=== PATIENT | female | born 1955 | race Caucasian/White ===

== ENCOUNTER → 2020-07-03 10:02 | Outpatient (BNVA) | payer MEDICARE, MEDICAID, SELFPAY | PROVIDERS: PCP Internal Medicine; Visit Provider Hospitalist | DX: J45.909 Unspecified asthma, uncomplicated (principal); Z79.899 Other long term (current) drug therapy; Z23 Encounter for immunization | CPT/HCPCS: 90471; 90732; 99213 ==

== ENCOUNTER → 2020-08-19 09:54 | Outpatient (BNVA) | payer MEDICARE, MEDICAID, SELFPAY | PROVIDERS: PCP Internal Medicine; Referring Provider Internal Medicine; Visit Provider Physician Assistant | DX: D64.9 Anemia, unspecified (principal); Z95.1 Presence of aortocoronary bypass graft | CPT/HCPCS: Q3014 ==

== ENCOUNTER 2020-10-16 08:30 | Outpatient (REF) | payer MEDICARE, MEDICAID, SELFPAY ==
--- NOTE | 2020-10-16 09:15 | EMG_ITS ---
Left median and ulnar motor and sensory studies were performed. Left radial sensory study was performed and paraspinal muscles were tested. IMPRESSION: 1. Mild left median neuropathy across carpal tunnel. 2. Left radial sensory neuropathy. 3. Mild left William Krysta anastomosis. MD MENDEZ Charles/GUNNER / [id number]
== END 2020-10-16 08:31 | disposition home or self-care (01) ==
LOC: HO.NEURO 08:30
PROVIDERS: PCP Internal Medicine; Visit Provider Internal Medicine
DX: R20.0 Anesthesia of skin (principal)
CPT/HCPCS: 95886; 95909

== ENCOUNTER → 2020-10-21 10:53 | Outpatient (BNVA) | payer MEDICARE, MEDICAID, SELFPAY | PROVIDERS: PCP Internal Medicine; Visit Provider Physician Assistant | DX: D64.9 Anemia, unspecified (principal) | CPT/HCPCS: Q3014 ==

== ENCOUNTER → 2021-03-30 10:17 | Outpatient (BNVA) | payer MEDICARE, MEDICAID, SELFPAY | PROVIDERS: PCP Internal Medicine; Visit Provider Hospitalist | DX: G47.33 Obstructive sleep apnea (adult) (pediatric) (principal); J45.40 Moderate persistent asthma, uncomplicated | CPT/HCPCS: 99212 ==

== ENCOUNTER 2021-05-18 12:18 | Outpatient (REF) | payer MEDICARE, MEDICAID, SELFPAY ==
--- NOTE | ~2021-05-18 | MM_ITS ---
EXAMINATION: MM SCREENING DIGITAL BREAST TOMOSYNTHESIS, BILATERAL CLINICAL INFORMATION: Screening. Asymptomatic. Prior [id number] mammography currently unavailable. Age 66. Family history breast cancer, paternal aunt. The lifetime risk of breast cancer based on the Tyrer-Cuzick Model is 6%. COMPARISON: None. TECHNIQUE: Digital breast tomosynthesis is performed in both the craniocaudal and mediolateral oblique views along with computer-aided detection (CAD). Synthesized 2D images are generated from the tomosynthesis. FINDINGS: The breasts are heterogeneously dense, which may obscure small masses (ACR BI-RADS breast composition Category c). Breast tissue composition borders on average fibroglandular. There is no significant mass or architectural abnormality. There are bilateral coarse vascular calcifications. Other bilateral fine calcifications appear early vascular on tomography. There are no suspicious calcifications. The axilla and skin contours are unremarkable. MM/MM tomosynthesis screening BI IMPRESSION: No mammographic evidence of malignancy. ASSESSMENT: BI-RADS 2: Benign RECOMMENDATION: Routine annual mammography screening. This patient's information was entered into a reminder system with a target due date for their next mammogram.
== END 2021-05-18 12:19 | disposition home or self-care (01) ==
LOC: HO.MAMMO 12:18
PROVIDERS: Visit Provider Internal Medicine
DX: Z12.31 Encounter for screening mammogram for malignant neoplasm of breast (principal); G47.33 Obstructive sleep apnea (adult) (pediatric)
CPT/HCPCS: 77063; 77067

== ENCOUNTER → 2021-05-18 13:10 | Outpatient (REF) | payer MEDICARE, MEDICAID, SELFPAY | LOC: HO.SL 13:10 | PROVIDERS: PCP Internal Medicine; Visit Provider Hospitalist | DX: Z13.89 Encounter for screening for other disorder (principal) ==

== ENCOUNTER → 2022-10-20 12:05 | Outpatient (BNVA) | payer MEDICARE, SELFPAY | PROVIDERS: PCP Internal Medicine; Referring Provider Internal Medicine; Visit Provider Internal Medicine | DX: I25.10 Atherosclerotic heart disease of native coronary artery without angina pectoris (principal); I10 Essential (primary) hypertension; E11.9 Type 2 diabetes mellitus without complications; Z95.1 Presence of aortocoronary bypass graft; Z79.4 Long term (current) use of insulin; Z79.899 Other long term (current) drug therapy | CPT/HCPCS: 93005; 99202 ==

== ENCOUNTER → 2022-11-17 11:10 | Outpatient (REF) | payer OTHER, SELFPAY ==
--- NOTE | 2022-11-17 11:12 | CA_ITS ---
Transthoracic Echocardiogram Patient (Last, First, Middle): Monica Read, Gender: Female Date of : 1955 Age: 67 Procedure Date: 11/17/2022 Procedure Type: Transthoracic Echocardiogram Location: OP Height: 157.48 cm Weight: 63.96 kg BSA: 1.65 m2 Heart Rate: bpm BP: 138 / 65 mmHg Information Systems Security Specialist: TO Referring MD: Bethel Marvin MD Skid Machine Operator: Esteban Hermosillo MD Symptoms: I25.10 - Atherosclerotic heart disease of [place] coronary artery without... Study Quality: Fair/Contrast ECG Rhythm: Sinus Conclusions: - 1, Normal LV systolic function with grade I diastolic function. 2. Normal cardiac valvular Doppler 3. Normal RVSP 4. No gross pericardial effusion. Findings Procedure Information Contrast agent, definity, is being given per protocol without apparent complications. Left Ventricle Normal left ventricular size, thickness, and systolic function. The visually estimated ejection fraction is between 55-60%. Spectral Doppler is indicative of an impaired relaxation filling pattern. E/E prime ratio is <8, consistent with normal filling pressures. Evidence suggests grade I (mild) diastolic dysfunction. Right Ventricle Normal right ventricular cavity size and systolic function. Atria Both atria are normal in size. There is no evidence of interatrial shunt. Aortic Valve Normal aortic valve structure and function. There is no aortic valve stenosis. There is no aortic valve regurgitation. Mitral Valve There is mild anterior and posterior mitral leaflet thickening. There is mild mitral annular calcification. There is trace mitral valve regurgitation. There is no mitral valve stenosis. Pulmonic Valve The pulmonic valve was not well visualized. Tricuspid Valve Normal tricuspid valve structure. There is mild tricuspid valve regurgitation. The right ventricular systolic pressure is normal. The right ventricular systolic pressure is 25 mmHg. Normal right atrial pressure. There is no evidence of pulmonary hypertension. Great Vessels All visible segments of the aorta are normal in size. The pulmonary artery was not well visualized. Venous The inferior vena cava is normal in size and collapses greater than 50% with inspiration. Pericardium/Pleural There is no evidence of pericardial effusion. Prior Study Comparison No prior study available for comparison. Measurements 2D Linear Measurements IVSd: 0.99 0.6-0.9/0.6-1.0 cm LVIDd: 3.76 3.9-5.3/4.2-5.9 cm LVIDd Index: 2.28 2.4-3.2/2.2-3.1 cm/m2 LVIDs: 2.48 2.0-3.6 cm LVPWd: 0.76 0.7-1.1 cm LA Diam: 3.30 2.7-3.8/3.0-4.0 cm LAIDs Index: 2.00 1.5-2.3 cm/m2 LV Mass: 118.69 67-162/88-224 g LV Mass Index: 71.93 43-95/49-115 g/m2 LVOT Diam: 1.90 3.0+(-)1.3 cm 2D Systolic Function EF 4C: 51.20 >55% EF 2C: 60.40 >55% EF BiP: 55.60 >55% Mitral Valve E'Lateral: 9.03 E'Medial: 5.00 Aortic Valve AoV Pk Nba: 1.28 AoV Mn Nba: 0.90 AoV VTI: 0.26 AoV Pk Grad: 7.00 Aov Mn Grad: 4.00 ERICK Cont.VTI: 2.25 LVOT LVOT Pk Nba: 0.92 LVOT Mn Nba: 0.63 LVOT VTI: 0.20 LVOT Pk Grad: 3.00 LVOT Mn Grad: 2.00 LVOT Diam: 1.90 LVOT Area: 2.84 Diastolic Function E'Medial: 5.00 E' Laterial: 9.03 Right Ventricle TAPSE (mm): 14.60 TVS' Nba: 7.07 Tricuspid Valve TR Pk Nba: 2.33 TR Pk Grad: 22.00 RA Press: 3.00 RVSP: 25.00 Great Vessels Aorta Sinus of Valsalva: 2.94 2.0-3.5 cm Ao Asc: 2.90 2.1-3.4 cm Updated in Other Vendor System with Status of Final Esteban Hermosillo MD electronically signed on 11/17/2022 3:03:54 PM with status of Final
== END ==
LOC: HO.CARD 11:10
PROVIDERS: Visit Provider Internal Medicine
DX: I25.10 Atherosclerotic heart disease of native coronary artery without angina pectoris (principal); Z95.1 Presence of aortocoronary bypass graft
CPT/HCPCS: 93306; Q9957

== ENCOUNTER 2022-12-24 10:43 | Outpatient (REF) | payer OTHER, SELFPAY ==
--- NOTE | ~2022-12-24 | MM_ITS ---
EXAMINATION: MM SCREENING DIGITAL BREAST TOMOSYNTHESIS, BILATERAL CLINICAL INFORMATION: Screening. Asymptomatic. The lifetime risk of breast cancer based on the Tyrer-Cuzick Model is 4%. COMPARISON: Mammography: 05/18/2021 (new baseline) TECHNIQUE: Digital breast tomosynthesis is performed in both the craniocaudal and mediolateral oblique views along with computer-aided detection (CAD). Synthesized 2D images are generated from the tomosynthesis. Additional exaggerated right CC view is provided. FINDINGS: The breasts are heterogeneously dense, which may obscure small masses (ACR BI-RADS breast composition Category c). There are no significant masses, abnormal calcifications, or other abnormalities. Parenchymal pattern is similar to prior studies. There is no developing density or architectural abnormality. The axilla and skin contours are unremarkable. No significant changes. MM/MM tomosynthesis screening BI IMPRESSION: No mammographic evidence of malignancy. ASSESSMENT: BI-RADS 1: Negative RECOMMENDATION: Routine annual mammography screening. This patient's information was entered into a reminder system with a target due date for their next mammogram.
== END 2022-12-24 10:44 | disposition home or self-care (01) ==
LOC: HO.MAMMO 10:43
PROVIDERS: PCP Internal Medicine; Visit Provider Internal Medicine
DX: Z12.31 Encounter for screening mammogram for malignant neoplasm of breast (principal)
CPT/HCPCS: 77063; 77067

== ENCOUNTER → 2022-12-31 10:51 | Outpatient (BNVA) | payer OTHER, SELFPAY | PROVIDERS: PCP Internal Medicine; Visit Provider Hospitalist | DX: G47.33 Obstructive sleep apnea (adult) (pediatric) (principal); J45.40 Moderate persistent asthma, uncomplicated | CPT/HCPCS: 99212 ==

== ENCOUNTER 2024-01-06 11:35 | Outpatient (REF) | payer OTHER, SELFPAY ==
--- NOTE | ~2024-01-06 | MM_ITS ---
EXAMINATION: MM SCREENING DIGITAL BREAST TOMOSYNTHESIS, BILATERAL CLINICAL INFORMATION: Screening. Asymptomatic. COMPARISON: Mammography: This study is compared with prior exams dating back to 2020. TECHNIQUE: Digital breast tomosynthesis is performed in both the craniocaudal and mediolateral oblique views along with computer-aided detection (CAD). Synthesized 2D images are generated from the tomosynthesis. FINDINGS: The breasts are heterogeneously dense, which may obscure small masses (ACR BI-RADS breast composition Category c). There are no significant masses, abnormal calcifications, or other abnormalities. MM/MM tomosynthesis screening BI IMPRESSION: No mammographic evidence of malignancy. ASSESSMENT: BI-RADS BI-RADS 1 - Negative RECOMMENDATION: Routine annual mammography screening. 1 year F/U This examination should not preclude the clinical evaluation of a suspicious palpable abnormality. This patient's information was entered into a reminder system with a target due date for their next mammogram.
== END 2024-01-06 11:36 | disposition home or self-care (01) ==
LOC: HO.MAMMO 11:35
PROVIDERS: PCP Internal Medicine; Visit Provider Internal Medicine
DX: Z12.31 Encounter for screening mammogram for malignant neoplasm of breast (principal)
CPT/HCPCS: 77063; 77067

== ENCOUNTER → 2024-01-06 12:00 | Outpatient (BNV) | payer OTHER, SELFPAY | PROVIDERS: PCP Internal Medicine; Visit Provider Radiology Diagnostic Radiology | DX: Z12.31 Encounter for screening mammogram for malignant neoplasm of breast (principal) | CPT/HCPCS: 77063; 77067 ==

== ENCOUNTER 2024-01-24 10:10 | Outpatient (REF) | payer OTHER, SELFPAY ==
[2024-01-24 14:24] LABS: MANUAL DIFF FLAG NO
[2024-01-24 14:40] LABS: Basophils Absolute Auto 0.1 X10*3/uL (0.0-0.2); Basophils Percent Auto 0.8 % (0-2); Eosinophils Absolute Auto 0.3 X10*3/uL (0.0-0.4); Hematocrit 42.6 % (37.0-47.0); Hemoglobin 13.5 g/dl (12.0-16.0); Imm Gran Abs Auto 0.06 X10*3/uL (0.00-0.03); Imm Gran Pct Auto 0.8 % (0.0-0.4); Lymphocytes Absolute Auto 1.4 X10*3/uL (1.2-4.9); Lymphocytes Percent Auto 17.3 % (20-40); Mean Corpuscular HGB Conc 31.7 g/dl (31.0-35.0); Mean Corpuscular Hemoglobin 29.7 pg (27.0-33.0); Mean Corpuscular Volume 93.8 fL (80.0-98.0); Mean Platelet Volume 10.6 fL (9.4-12.3); Monocytes Absolute Auto 0.4 X10*3/uL (0.1-1.2); Monocytes Percent Auto 4.9 % (2-11); Neutrophils Absolute Auto 5.8 x10*3/uL (2.0-8.3); Neutrophils Percent Auto 72.2 % (45-73); Platelet Count 297 X10*3/uL (160-400); Red Blood Count 4.54 X10*6/uL (4.20-5.50); Red Cell Distribution Width 12.9 % (11.0-16.0)
[2024-01-24 14:47] LABS: Estimated Average Glucose 197 mg/dL; Hemoglobin A1c % 8.5 % (<6.0)
[2024-01-24 14:54] LABS: Alanine Aminotransferase 42 U/L (0-31); Alkaline Phosphatase 107 U/L (39-117); Anion Gap 14 (12-20); Aspartate Amino Transferase 42 U/L (5-31); Bilirubin Total 0.5 mg/dL (0.0-1.0); Blood Urea Nitrogen 14 mg/dL (9-16); Calcium 9.7 mg/dL (8.4-10.2); Carbon Dioxide 27 mmol/L (22-29); Chloride 107 mmol/L (96-108); Cholesterol 269 mg/dL (<200); Estimated Glomerular Filt Rate > 60; Glucose Random 92 mg/dL (60-115); HDL Cholesterol 49 mg/dL (>40); Iron 91 mcg/dL (30-160); LDL Cholesterol Calculated 194 mg/dL (<100); Percent Iron Saturation 31 % (15-50); Potassium 3.5 mmol/L (3.3-5.1); Sodium 144 mmol/L (135-145); Total Iron Binding Capacity 291 mcg/dL (228-428); Triglycerides 132 mg/dL (<150); Unsaturated Iron Binding 200 ug/dL
[2024-01-24 15:08] LABS: TSH reflex Free T4 1.83 uIU/mL (0.32-4.0)
[2024-01-24 15:17] LABS: Folate 11.3 ng/mL (> or = 4.0); Vitamin B12 198 pg/mL (200-900)
== END 2024-01-24 10:11 | disposition home or self-care (01) ==
LOC: HO.CHCLDS 10:10
PROVIDERS: Visit Provider Internal Medicine
DX: I25.10 Atherosclerotic heart disease of native coronary artery without angina pectoris (principal); E11.9 Type 2 diabetes mellitus without complications
CPT/HCPCS: 36415; 80053; 80061; 82607; 82746; 83036; 83540; 84443; 85025

== ENCOUNTER 2024-08-03 13:13 | Outpatient (REF) | payer OTHER, SELFPAY ==
[2024-08-03 14:35] LABS: Estimated Average Glucose 249 mg/dL; Hemoglobin A1C 326.7142 umol/L; Hemoglobin A1c % 10.3 % (<6.0); Total Hemoglobin (HGBA1C) 3668.3933 umol/L
[2024-08-03 14:43] LABS: Alanine Aminotransferase 38 U/L (0-31); Albumin Level 3.8 g/dL (3.5-5.0); Alkaline Phosphatase 111 U/L (39-117); Anion Gap 15 (12-20); Aspartate Amino Transferase 45 U/L (5-31); Bilirubin Total 0.5 mg/dL (0.0-1.0); Blood Urea Nitrogen 13 mg/dL (9-16); Calcium 9.3 mg/dL (8.4-10.2); Carbon Dioxide 25 mmol/L (22-29); Chloride 108 mmol/L (96-108); Cholesterol 243 mg/dL (<200); Estimated Glomerular Filt Rate > 60; Glucose Random 81 mg/dL (60-115); HDL Cholesterol 45 mg/dL (>40); LDL Cholesterol Calculated 167 mg/dL (<100); Potassium 3.6 mmol/L (3.3-5.1); Sodium 144 mmol/L (135-145); Total Protein 7.5 g/dL (6.5-8.0); Triglycerides 159 mg/dL (<150)
[2024-08-03 15:18] LABS: Vitamin B12 185 pg/mL (200-900)
== END 2024-08-03 13:14 | disposition home or self-care (01) ==
LOC: HO.CHCLDS 13:13
PROVIDERS: Visit Provider Internal Medicine
DX: E11.51 Type 2 diabetes mellitus with diabetic peripheral angiopathy without gangrene (principal); Z79.4 Long term (current) use of insulin
CPT/HCPCS: 36415; 80053; 80061; 82607; 82746; 83036

== ENCOUNTER 2024-08-06 11:47 | Outpatient (REF) | payer OTHER, SELFPAY ==
[2024-08-06 15:44] LABS: Creatinine Urine 81.49 mg/dL
== END 2024-08-06 11:48 | disposition home or self-care (01) ==
LOC: HO.CHCLNP 11:47
PROVIDERS: Visit Provider Internal Medicine
DX: E11.51 Type 2 diabetes mellitus with diabetic peripheral angiopathy without gangrene (principal); Z79.4 Long term (current) use of insulin
CPT/HCPCS: 82043; 82570

== ENCOUNTER 2024-08-29 11:08 | Outpatient (AMB) | payer OTHER, SELFPAY ==
[2024-08-29 11:13] VITALS: BP 140/68; PULSE 89; O2SAT 97; BMI 27.2
--- NOTE | 2024-08-29 11:13 | MHC.OFFVIS ---
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 Overall she has been doing well on the current respiratory regimen. She continues the Breo in the incruise daily. She has not had any exacerbations or need for prednisone. She did try to undergo pulmonary function studies but she did have a difficult time period therefore I find that the results are suboptimal and not consistent with her respiratory status. She also had a chest x-ray from [facility] that was without any acute disease. Recently she did get the flu shot. Will provide her with the pneumococcal 23 and hopefully she can get the Prevnar 13 next year. 03/30/2021 the patient is here for a pulmonary follow-up visit. Patient has been responding well to the current respiratory regimen. She does use the Breo daily. She does have a Xopenex HFA available as needed. She has had to use it more than twice a week specially when it is hot and humid. The patient major issue is her sleep. She has significant daytime drowsiness. Her [place] score is elevated 24. She states that she has discomfort of her shoulders and she usually is a side sleeper. However with the shoulder discomfort she has been having to sleep on her back. She has been having more snoring that she has been told about. Her sleep stents to be fragmented. The patient has significant cardiovascular risk factors. Recently she did develop chest discomfort and she was seen at the [facility] ER because she that was cardiac. her workup was reassuring. She was able to go home and she has not had any more chest discomfort. Based on his significant cardiovascular risk factors the patient needs to undergo a sleep study at this time. 12/31/2022 the patient is here for a pulmonary follow-up visit. Overall the patient has been doing well. She does use the Breo daily and also the Incruse daily. She has a rescue inhaler, Xopenex but she does not required it often. Typically less than twice a week. She continues to have daytime drowsiness. She did have a home sleep study more than a year ago at home. Although unfortunately it was not adequate and she had repeated. However she was never called. She continues to have some daytime drowsiness with an elevated [place] score of 10/24. Therefore with her underlying cardiovascular history will be important to repeat the study. Will have her undergo a repeat home sleep study this time. Otherwise patient is without any other complaints will follow-up in 3 months if her sleep study is abnormal although frost 1 year. 08/29/2024 the patient is here for a pulmonary follow-up visit. Overall she is doing very well on the Breo and the Incruse inhalers. The been affecting beneficial. She has not had to use her rescue inhaler often. Denies any recent sickness. She needs to get her flu vaccine. She got up the pharmacy and also get the RSV. No recent imaging to review. She continues to have daytime drowsiness. Her [place] score is elevated 10/24. She is still trying to arrange her home sleep study. When she has a done she can always call so we can review the results. Otherwise will follow-up in 6-8 months. She has issues with elevations in her blood sugars. Her hemoglobin A1c is significantly elevated. The patient has been struggling with this. She would benefit from an Endocrinology evaluation. Will facilitate this process at this time. [facility] Medical History (System 11/10/23 @ 08:42 by Savi Wu) CRISTINA (obstructive sleep apnea) Diabetes HTN (hypertension) CAD (coronary artery disease) Asthma Surgical History (System 11/10/23 @ 08:42 by Savi Wu) Hx of CABG Hx of heart surgery Hx of endoscopy History of colonoscopy Family History (System 11/10/23 @ 08:42 by Savi Wu) Father Hx of diabetes insipidus Mother No problems noted. Other Asthma Social History Household Members: None Household Members Other:: alone Alcohol intake: never Patient Tobacco Use Status: Never used Tobacco Review of Systems Const Reports daytime sleepiness, Reports difficulty sleeping and Denies night sweats ENT Denies change in voice, Denies lip swelling, Denies mouth pain, Reports nasal congestion, Reports nasal discharge and Denies tongue swelling Card Denies chest pain Resp Reports cough GI Denies abdominal pain Musc Denies no additional complaints Neuro Denies Neuro-related abnormal movements Psych Denies no additional complaints Mitchell/Lymph Denies easy bleeding and Denies lymphadenopathy Aller/Immun Denies lip swelling and Denies tongue swelling Physical Exam Vital Signs: Last Vital Signs Pulse 89 08/29/24 11:13 BP 140/68 H 08/29/24 11:13 Pulse Ox 97 08/29/24 11:13 Oxygen Delivery Method Room Air 08/29/24 11:13 BMI result Body Mass Index 27.2 Const General: alert Neck Neck: Yes normal visual inspection, Yes full ROM and Yes no lymphadenopathy Chest Chest palpation & inspection: normal inspection of the chest Resp Auscultation: diminished lung sounds Cardio Rate: regular rate Rhythm: regular rhythm Heart sounds: S1 normal heart sound present and S2 normal heart sound present GI Palpation (GI): Soft to palpation and nontender Auscultation: normal bowel sounds Skin General skin exam: rashes and/or lesions noted Assessment & Plan Assessment & Plan (1) CRISTINA (obstructive sleep apnea): Code(s): G47.33 - Obstructive sleep apnea (adult) (pediatric) Category: Medical (2) Asthma: Code(s): J45.909 - Unspecified asthma, uncomplicated Category: Medical Qualifiers: Asthma complication type: uncomplicated Asthma persistence: persistent Asthma severity: moderate Qualified Code(s): J45.40 - Moderate persistent asthma, uncomplicated (3) Diabetes: Code(s): E11.9 - Type 2 diabetes mellitus without complications Category: Medical Plan positional sleep therapy continue Breo continue Incruse short-acting beta agonist as needed referral to DM sustainability consultant follow-up in 6-8 months Orders: Referrals Endocrinology Referral E11.9 - Type 2 diabetes mellitus without complications Coding Level of Care Code Est Pt Level 4 (34285) Diagnoses CRISTINA (obstructive sleep apnea) G47.33 Moderate persistent asthma without complication J45.40 Asthma complication type: uncomplicated Asthma persistence: persistent Asthma severity: moderate Diabetes E11.9 Time Spent (min) 16
== END 2024-08-29 11:28 | disposition home or self-care (01) ==
PROVIDERS: PCP Internal Medicine; Visit Provider Hospitalist
DX: G47.33 Obstructive sleep apnea (adult) (pediatric) (principal); J45.40 Moderate persistent asthma, uncomplicated; E11.9 Type 2 diabetes mellitus without complications
CPT/HCPCS: 99214

== ENCOUNTER → 2024-08-29 11:08 | Outpatient (BNVA) | payer OTHER, SELFPAY | PROVIDERS: PCP Internal Medicine; Visit Provider Hospitalist | DX: G47.33 Obstructive sleep apnea (adult) (pediatric) (principal); J45.40 Moderate persistent asthma, uncomplicated; E11.9 Type 2 diabetes mellitus without complications | CPT/HCPCS: 99212 ==

== ENCOUNTER 2024-09-05 10:08 | Outpatient (AMB) | payer OTHER, SELFPAY ==
--- NOTE | 2024-09-05 10:09 | A.OFFVIS_ITS ---
Vital Signs 09/05/24 10:10 Height 5 ft 2 in Weight 143 lb 11.862 oz BMI 26.3 BP 140/72 H Blood Pressure Location Lt brachial Position Sitting Pulse 96 Pulse Source Monitor Intake Visit Reasons: Over due 1 year follow up Application Lead Required: Yes Application Lead Language: Film Vault Supervisor Name: Chad [id number] Accompanied by: Self / Same As Patient Allergies No Known Allergies Allergy (Verified 08/29/24 11:16) Medication List - Last Reconciled 09/05/24 by Bethel Marvin MD alcohol swabs pad topical TID alirocumab (Praluent Pen) 75 mg subcut Q2W aspirin 81 mg PO DAILY atorvastatin 80 mg PO BEDTIME dulaglutide 0.75 mg subcut QWEEK empagliflozin 25 mg PO DAILY ferrous sulfate 325 mg PO DAILY fluticasone furoate-vilanterol 200-25 mcg/dose (Breo Ellipta) 1 inh inhalation DAILY 30 days insulin aspart U-100 units subcut insulin glargine units subcut lancets As directed levalbuterol tartrate 45 mcg/actuation 2 puffs PO Q6H PRN 30 days lisinopril 40 mg PO DAILY multivitamin 1 tab PO DAILY pen needle, diabetic As directed umeclidinium 62.5 mcg/actuation 1 inh PO DAILY 30 days HPI Comments Details: Monica returns for follow-up regarding coronary artery disease. In 2019, she underwent coronary artery bypass surgery. It seems that she might have seen [facility] after that, but not recently. Multiple cardiovascular risk factors including diabetes, hypertension, dyslipidemia. Overall, not well controlled. Some sternal pain which could be related to sternotomy and long standing. [facility] Medical History CRISTINA (obstructive sleep apnea) Diabetes HTN (hypertension) CAD (coronary artery disease) Asthma Surgical History Hx of CABG Hx of heart surgery Hx of endoscopy History of colonoscopy Family History Father Hx of diabetes insipidus Mother No problems noted. Other Asthma Social History Household Members: None Household Members Other:: alone Alcohol intake: never Patient Tobacco Use Status: Never used Tobacco Review of Systems Const Denies chills, Denies fatigue, Denies fever(s), Denies frequent falls, Denies weakness, Denies weight gain and Denies weight loss ENT Denies dizziness Card Denies chest pain, Denies leg edema, Denies lightheadedness, Denies palpitations, Denies dyspnea and Denies dyspnea on exertion Resp Denies cough, Denies dyspnea and Denies dyspnea on exertion GI Denies hematochezia Musc Denies abnormal gait, Denies muscle weakness, Denies numbness, Denies radiating pain into limb and Denies tingling Neuro Denies abnormal gait, Denies dizziness, Denies frequent falls, Denies numbness, Denies tingling and Denies weakness Endo Denies fatigue and Denies palpitations Physical Exam Vital Signs: Last Vital Signs Pulse 96 09/05/24 10:10 BP 140/72 H 09/05/24 10:10 BMI result Body Mass Index 26.3 Const General: comfortable and no acute distress Orientation/consciousness: patient oriented x3 HEENT Other: Unremarkable Head: Yes normal to inspection Neck Neck: Yes normal visual inspection Chest Chest palpation & inspection: normal inspection of the chest Resp Auscultation: clear to auscultation bilaterally Cardio Palpation: normal PMI Heart sounds: S1 normal heart sound present, S2 normal heart sound present, no gallops, no murmurs and no rubs GI Palpation (GI): Soft to palpation Back/Spine/Pelvis Other: unremarkable Skin General skin exam: no rashes or lesions noted Neuro General: patient oriented x3 Extrem General: Yes normal to inspection Psych Mental Status: mental status grossly normal Office Procedures EKG Details: EKG with underlying sinus rhythm at 96/Min; nonspecific ST-T changes; [place] [id number], Complete Assessment & Plan Assessment & Plan (1) CAD (coronary artery disease): Code(s): I25.10 - Atherosclerotic heart disease of [place] coronary artery without angina pectoris Category: Medical Qualifiers: Coronary Disease-Associated Artery/Lesion type: [place] artery [place] vs. transplanted heart: [place] heart Associated angina: without angina Qualified Code(s): I25.10 - Atherosclerotic heart disease of [place] coronary artery without angina pectoris Plan: Clinically, no angina. Remain on long-term aspirin. She is on statins and verified that with pharmacy. However, lipids are poorly controlled and LDL is 167 mg/dL. Start Praluent. Recheck lipids in 3 months. (2) Hx of CABG: Code(s): Z95.1 - Presence of aortocoronary bypass graft Category: Surgical Plan: CABG 2019. OLMOS to LAD; SVG to OM 2; radial artery to OM 1. Recovered completely. (3) HTN (hypertension): Code(s): I10 - Essential (primary) hypertension Category: Medical Qualifiers: Hypertension type: primary hypertension Qualified Code(s): I10 - Essential (primary) hypertension Plan: Borderline blood pressure. (4) Diabetes: Code(s): E11.9 - Type 2 diabetes mellitus without complications Category: Medical Qualifiers: Diabetes mellitus type: type 2 Diabetes mellitus jail insulin use: with jail use Diabetes mellitus complication status: with hyperglycemia Qualified Code(s): E11.65 - Type 2 diabetes mellitus with hyperglycemia; Z79.4 - assisted (current) use of insulin Plan: Poorly controlled. Hb A1c >10%. On multiple meds including Trulicity, Jardiance, insulin. Will need further changes through her own PCP. Orders: Orders Lipid Panel 3 Months I25.10 - Atherosclerotic heart disease of [place] coronary artery without angina pectoris Medications: New lisinopril 40 mg PO DAILY 90 tabs 2RF alirocumab (Praluent Pen) 75 mg subcut Q2W 2 mL 3RF Coding Level of Care Code Est Pt Level 4 (69574) Diagnoses Coronary artery disease involving [place] coronary artery of [place] heart without angina pectoris I25.10 Coronary Disease-Associated Artery/Lesion type: [place] artery [place] vs. transplanted heart: [place] heart Associated angina: without angina Hx of CABG Z95.1 Primary hypertension I10 Hypertension type: primary hypertension Type 2 diabetes mellitus with hyperglycemia, with long-term current use of insulin E11.65; Z79.4 Diabetes mellitus type: type 2 Diabetes mellitus jail insulin use: with jail use Diabetes mellitus complication status: with hyperglycemia CPT Codes EKG - CPT: [id number], Complete ([id number])
[2024-09-05 10:10] VITALS: BP 140/72; PULSE 96; BMI 26.3
== END 2024-09-05 10:37 | disposition home or self-care (01) ==
PROVIDERS: PCP Internal Medicine; Visit Provider Internal Medicine
DX: I25.10 Atherosclerotic heart disease of native coronary artery without angina pectoris (principal); Z95.1 Presence of aortocoronary bypass graft; I10 Essential (primary) hypertension; E11.65 Type 2 diabetes mellitus with hyperglycemia; Z79.4 Long term (current) use of insulin
CPT/HCPCS: 93010; 99214

== ENCOUNTER → 2024-09-05 10:08 | Outpatient (BNVA) | payer OTHER, SELFPAY | PROVIDERS: PCP Internal Medicine; Visit Provider Internal Medicine | DX: I25.10 Atherosclerotic heart disease of native coronary artery without angina pectoris (principal); I10 Essential (primary) hypertension; E11.65 Type 2 diabetes mellitus with hyperglycemia; Z95.1 Presence of aortocoronary bypass graft; Z79.4 Long term (current) use of insulin | CPT/HCPCS: 93005; 99212 ==

== ENCOUNTER → 2024-10-26 11:45 | Outpatient (BNVA) | payer OTHER, SELFPAY | PROVIDERS: PCP Internal Medicine; Visit Provider Physician Assistant | DX: E11.65 Type 2 diabetes mellitus with hyperglycemia (principal); G47.33 Obstructive sleep apnea (adult) (pediatric); I10 Essential (primary) hypertension; E78.5 Hyperlipidemia, unspecified; Z79.4 Long term (current) use of insulin; Z95.1 Presence of aortocoronary bypass graft | CPT/HCPCS: 82947; 99202 ==

== ENCOUNTER 2024-12-07 11:45 | Outpatient (AMB) | payer OTHER, SELFPAY ==
--- NOTE | 2024-12-07 11:45 | MHC.OFFVIS ---
Vital Signs 12/07/24 11:49 Height 5 ft 2 in Weight 149 lb 7.574 oz BMI 27.3 BP 130/58 L Blood Pressure Location Rt brachial Position Sitting Pulse 97 Pulse Source Pulse Oximeter Pulse Oximetry (%) 97 Oxygen Delivery Method Room Air Intake Visit Reasons: Type 2 diabetes mellitus with hyperglycemia Intake Note: Patient present today for Type 2 Diabetes Mellitus Last Diabetic eye exam: 05/2024 Last Podiatry Visit: Does not see Wound Treatment Rn Random Glucose: 213 mg/dl HgA1C: 8.6% 12/07/2024 Refrigerating Technician Required: Yes Refrigerating Technician Language: Construction Manager Services: Refrigerating Technician Offered & Declined Information Interpreted: non-clinical & clinical Accompanied by: ELECTRONIC COILS SUPERVISOR- Kerline Allergies No Known Allergies Allergy (Verified 12/07/24 11:51) Medication List - Last Reconciled 12/07/24 by Zita Barger PA-C alcohol swabs pad topical TID alirocumab (Praluent Pen) 75 mg subcut Q2W aspirin 81 mg PO DAILY atorvastatin 80 mg PO BEDTIME blood-glucose sensor (Dexcom G7 Sensor device) Use daily As directed to monitor glucose. change q 10 days ferrous sulfate 325 mg PO DAILY fluticasone furoate-vilanterol 200-25 mcg/dose (Breo Ellipta) 1 inh inhalation DAILY 30 days glipizide ER 5 mg PO DAILY glucose (Dex4 Glucose) 16 grams (4 x 4 gram) PO Q15M PRN insulin aspart U-100 (Novolog FlexPen U-100 Insulin aspart) 12 units subcut TID insulin glargine U-300 conc (Toujeo Max U-300 SoloStar) 50 units (0.1667 mL) subcut DAILY lancets As directed levalbuterol tartrate 45 mcg/actuation 2 puffs PO Q6H PRN 30 days lisinopril 40 mg PO DAILY multivitamin 1 tab PO DAILY pen needle, diabetic As directed semaglutide (Ozempic) 0.25 mg (0.368 mL) subcut QWEEK umeclidinium 62.5 mcg/actuation 1 inh PO DAILY 30 days HPI HPI Type 2 diabetes mellitus with hyperglycemia: Details: Patient is a 69-year-old female with a significant past medical history of coronary artery disease, s/p CABG, CRISTINA, diabetes, hypertension, hyperlipidemia, anemia and asthma presenting today for a diabetic f/u. ELECTRONIC COILS SUPERVISOR is here to interpret although patient does understand and speaks Bruneian. Endo: She was diagnosed with diabetes around the age 50. Her last A1c was 10.3 and today is 8.6. She is currently on Ozempic 0.25 mg weekly, novolog 12 units t.i.d., Toujeo 50 units at night and glipizide 5 mg daily. -at times it was uncomfortable injecting 50 units of the Lantus, jardiance causes upset stomach, She tried metformin n/v/d. Trulicity causes n/v. CGM- She has used a sensor in the past and at our last visit I provided this for her. She says that it fell off and she does not know how to apply it. I did this again today in the office for her. She does have microalbuminuria and known CAD Diabetic Education- states she never had this and would like to and would like to see a enterprise resource planning consultant States she has a strong fam hx of t2dm and when she was diagnosed she was confirmed by pcp t2dm. CV: Blood pressure today in the office is 130/58. She is currently on lisinopril 40 mg. Her cholesterol is not at goal. Her LDL should be less than 70 in her last lipid panel did show an LDL of 167. She states she just restarted the atorvastatin 80 mg. . [facility] Medical History (Updated 10/26/24 @ 12:07 by Zita Barger PA-C) CRISTINA (obstructive sleep apnea) Diabetes HTN (hypertension) CAD (coronary artery disease) Asthma Surgical History Hx of CABG Hx of heart surgery Hx of endoscopy History of colonoscopy Family History Father Hx of diabetes insipidus Mother No problems noted. Other Asthma Social History Household Members: None Household Members Other:: alone Alcohol intake: never Patient Tobacco Use Status: Never used Tobacco Physical Exam Vital Signs: Last Vital Signs Pulse 97 12/07/24 11:49 BP 130/58 L 12/07/24 11:49 Pulse Ox 97 12/07/24 11:49 Oxygen Delivery Method Room Air 12/07/24 11:49 BMI result Body Mass Index 27.3 Const Orientation/consciousness: patient oriented x3 HEENT Ears: hearing grossly normal bilaterally Neck Thyroid: Thyroid normal Lymphatic: no lymphadenopathy noted Resp Auscultation: clear to auscultation bilaterally Cardio Rate: regular rate Rhythm: regular rhythm Heart sounds: S1 normal heart sound present and S2 normal heart sound present Skin General skin exam: no rashes or lesions noted Neuro General: patient oriented x3, gait normal and no focal motor deficits Results AMB Hemoglobin A1c AMB Hemoglobin A1c 8.6 % Last Edit by NITA Kelley on 12/07/24 12:13 Results Reviewed Results Reviewed: Laboratory Last Values Glucose (Clinic) 213 mg/dL (60-115) H 12/07/24 12:04 Assessment & Plan Assessment & Plan (1) Uncontrolled type 2 diabetes mellitus with hyperglycemia, with long-term current use of insulin: Code(s): E11.65 - Type 2 diabetes mellitus with hyperglycemia; Z79.4 - USP (current) use of insulin Category: Medical Plan: Increase Ozempic. Continue with current regimen otherwise. Dexcom provided today in the office and applied for her. (2) HTN (hypertension): Code(s): I10 - Essential (primary) hypertension Category: Medical Qualifiers: Hypertension type: primary hypertension Qualified Code(s): I10 - Essential (primary) hypertension Plan: WNL. Continue current regimen (3) Hyperlipidemia: Code(s): E78.5 - Hyperlipidemia, unspecified Category: Medical Plan: Discussed importance of compliance with statin. Orders: Orders AMB Hemoglobin A1c Today E11.65 - Type 2 diabetes mellitus with hyperglycemia, Z79.4 - exterminator (current) use of insulin Medications: New semaglutide (Ozempic) 0.5 mg (0.736 mL) subcut QWEEK 3 mL 4RF Changed From insulin aspart U-100 (Novolog FlexPen U-100 Insulin aspart) with breakfast, lunch and supper 12 units subcut TID To insulin aspart U-100 (Novolog FlexPen U-100 Insulin aspart) with breakfast, lunch and supper 12 units (0.12 mL) subcut TID 15 mL 0RF Discontinued semaglutide (Ozempic) Discontinued Reason: Doctor's Order 0.25 mg (0.368 mL) subcut QWEEK 3 mL 2RF Patient Instructions: continue insulins increase ozempic to 0.5 mg continue glipizide Coding Level of Care Code Est Pt Level 4 (85279) Complex EM visit Add On G2211 Diagnoses Uncontrolled type 2 diabetes mellitus with hyperglycemia, with long-term current use of insulin E11.65; Z79.4 Primary hypertension I10 Hypertension type: primary hypertension Hyperlipidemia E78.5
[2024-12-07 11:49] VITALS: BP 130/58; PULSE 97; O2SAT 97; BMI 27.3
[2024-12-07 12:08] LABS: Glucose, Whole Blood 213 mg/dL (60-115)
--- OUTSIDE RECORDS SUMMARY | 2024-12-07 13:39 | XMS_ITS | Clinical Summary ---
Author Organization [facility] ity Address [address] [place] [address] Care Team Providers Care Seismograph Computer Name Role Phone Unavailable Primary Care Provider Unavailabl e Social History Tobacco Use Types Packs/Day Years Used Date Smoking Tobacco: Never Assessed Comments Unknown Sex and Gender Information Value Date Recorded Sex Assigned at Not on file Legal Sex Female 2:09 PM EST Gender Identity Not on file Sexual Orientation Not on file Plan of Treatment Health Maintenance Due Date Last Done Comments Breast Cancer Screening 1955 DTaP,Tdap,and Td Vaccines (1 - Tdap) 1974 Pneumococcal Vaccine: 50+ Ye ars (1 of 1 - PCV) 2005 Zoster Vaccines (1 of 2) 2005 COVID-19 Vaccine ( - 2023-2 5 season) 2024 Influenza Vaccine (#1) 2024 RSV Immunization Patients 60 + Years Old (1 - 1-dose 75+ series) 2030 HIB Vaccines Aged Out No longer eligi ble based on patient's age to complete this topic HPV Vaccines Aged Out No longer eligi ble based on patient's age to complete this topic Hepatitis A Vaccines Aged Out No long er eligible based on patient's age to complete this topic Hepatitis B Vaccines Aged Out No long er eligible based on patient's age to complete this topic IPV Vaccines Aged Out No longer eligi ble based on patient's age to complete this topic MMR Vaccines Aged Out No longer eligi ble based on patient's age to complete this topic Meningococcal ACWY Vaccine Aged Out N o longer eligible based on patient's age to complete this topic Meningococcal B Vacine Aged Out No lo nger eligible based on patient's age to complete this topic RSV Immunization Patients Un elsy 20 months Aged Out No longer eligible b ased on patient's age to complete this topic Varicella Vaccines Aged Out No longer eligible based on patient's age to complete this topic
== END 2024-12-07 12:16 | disposition home or self-care (01) ==
PROVIDERS: PCP Internal Medicine; Visit Provider Physician Assistant
DX: E11.65 Type 2 diabetes mellitus with hyperglycemia (principal); Z79.4 Long term (current) use of insulin; I10 Essential (primary) hypertension; E78.5 Hyperlipidemia, unspecified

== ENCOUNTER → 2024-12-07 11:45 | Outpatient (BNVA) | payer OTHER, SELFPAY | PROVIDERS: PCP Internal Medicine; Visit Provider Physician Assistant | DX: E11.65 Type 2 diabetes mellitus with hyperglycemia (principal); I10 Essential (primary) hypertension; E78.5 Hyperlipidemia, unspecified; Z79.4 Long term (current) use of insulin | CPT/HCPCS: 82947; 83036; 99212 ==

== ENCOUNTER 2024-12-24 11:25 | Outpatient (AMB) | payer OTHER, SELFPAY ==
--- NOTE | 2024-12-24 12:24 | MHC.AMDMED ---
Intake Intake Visit Reasons: T2DM Pinking Sewing Machine Operator Required: Yes Pinking Sewing Machine Operator Language: Levee Superintendent Name: [id number] Accompanied by: Other Relationship Allergies No Known Allergies Allergy (Verified 12/07/24 11:51) HPI Comprehensive Diabetes Asmnt Most Recent Diabetes Results: Microalb/Creat Ratio 38.0 ug/mg cr (<30) H 08/06/24 Cholesterol 243 mg/dL (<200) H 08/03/24 HDL Cholesterol 45 mg/dL (>40) 08/03/24 Triglycerides 159 mg/dL (<150) H 08/03/24 Creatinine 0.85 mg/dL (0.5-1.4) 08/03/24 Blood Urea Nitrogen 13 mg/dL (9-16) 08/03/24 Sodium 144 mmol/L (135-145) 08/03/24 Potassium 3.6 mmol/L (3.3-5.1) 08/03/24 Chloride 108 mmol/L (96-108) 08/03/24 Carbon Dioxide 25 mmol/L (22-29) 08/03/24 Calcium 9.3 mg/dL (8.4-10.2) 08/03/24 AST 45 U/L (5-31) H 08/03/24 ALT 38 U/L (0-31) H 08/03/24 Total Protein 7.5 g/dL (6.5-8.0) 08/03/24 Albumin 3.8 g/dL (3.5-5.0) 08/03/24 [facility] Medical History (Updated 10/26/24 @ 12:07 by Zita Barger PA-C) CRISTINA (obstructive sleep apnea) Diabetes HTN (hypertension) CAD (coronary artery disease) Asthma Surgical History Hx of CABG Hx of heart surgery Hx of endoscopy History of colonoscopy Family History Father Hx of diabetes insipidus Mother No problems noted. 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.4 - retirement (current) use of insulin Plan: Patient at visit to set up an insert Dexcom G7 with lead technologist in cytogenetics Instructed patient sensors water proof you can shower, or swim do not submerge sensor in water for over 30 minutes Is sensor falls off cannot put back in you need to replace sensor, customer service number given to patient for sensor replacement Sensor placed on the back of Left arm Patient left visit with sensor in warmup Patient had sensor placed by PA at last visit Patient's average glucose while wearing that sensor 221 mg/dL Above target 69% Target 29% Below target 2% Patient having postprandial hypoglycemia from evening snack of coffee and crackers, ask patient to switch snack to complex carb or protein see if that reduces glucose overnight Reviewed with patient how to treat hypoglycemia with rule of 15s How to treat low blood sugar handout given in [place] Reviewed how to interpret trend arrows Reminded patient that to check finger sticks if symptoms do not match sensor reading. Discussed lag time between finger stick and sensor data.? Instructed patient she should always keep blood glucometer for backup testing if needed Reviewed delay of CGM from fingersticks Reminded pt that if symptoms do not match sensor still needs to check fingersticks. Portions of this note were created using voice recognition software, please excuse any words or phrases that may have been misinterpreted. Patient Instructions: Instrucciones para el paciente: CGM proporciona informaci?n sobre el control de la glucosa en saad a lo alf del d?a, incluidas la hiperglucemia y la hipoglucemia. Contin?e controlando la glucosa en saad seg?n las instrucciones. Siga las pautas de nutrici?n proporcionadas. Informe cualquier molestia de inmediato al proveedor de atenci?n m?dica. Mantente gael hidratado. Puede ba?arse, ducharse, nadar y hacer ejercicio mientras usa el sensor de glucosa. No sumerja el sensor de glucosa en agua letty m?s de 30 minutos. Retire el sensor para ciarra resonancia magn?dian o ciarra tomograf?a computarizada. Evite la m?quina de breezy X en los aeropuertos: retire el sensor o solicite la varita Coding Level of Care Code Est Pt Level 1 (35897) Diagnoses Uncontrolled type 2 diabetes mellitus with hyperglycemia, with long-term current use of insulin E11.65; Z79.4
== END 2024-12-24 12:43 | disposition home or self-care (01) ==
LOC: HO.ENCR 11:26
PROVIDERS: PCP Internal Medicine; Visit Provider Registered Nurse Diabetes Educator
DX: E11.65 Type 2 diabetes mellitus with hyperglycemia (principal); Z79.4 Long term (current) use of insulin

== ENCOUNTER 2024-12-24 11:25 | Outpatient (AMB) | payer OTHER, SELFPAY ==
--- NOTE | 2024-12-24 11:07 | A.OFFVIS_ITS ---
VS Expanded 12/24/24 21:29 Height 5 ft 2 in Weight 149 lb 2.5 oz BMI 27.3 Intake Visit Reasons: T2DM Allergies No Known Allergies Allergy (Verified 12/07/24 11:51) Nutrition Presentation Details: Pt presents for MNT for T2DM Pt reports typically having 3 meals/day Breakfast: cereal with low fat milk lunch: sand (tuna or chicken) dinner: rice/beans/chicken /salad snack skips or may have fruit or crackers with cheese coffee 1-2x/d food frequency fruits: 0-1/d dairy : 1-2/d ve/d starches > 20 fish: 0-1/wk BS Monitoring Most Recent Diabetes Results: No Data to Display KEP-Kgdnnia-Lm.Jeor Equation Height: 5 ft 2 in Weight: 149 lb Resting Metabolic Rate: 1158.95 Calculated Activity Level: Sedentary Calories Needed to Maintain Weight: 1390.74 Diagnosis Nutrition problem #1: altered nutrition labs As related to (etiology) #1: diagnosis As evidenced by (sign/symptom) #1: abnormal lab values and knowledge deficit of diet [facility] Medical History (Updated 10/26/24 @ 12:07 by Zita Barger PA-C) CRISTINA (obstructive sleep apnea) Diabetes HTN (hypertension) CAD (coronary artery disease) Asthma Surgical History Hx of CABG Hx of heart surgery Hx of endoscopy History of colonoscopy Family History Father Hx of diabetes insipidus Mother No problems noted. 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 Category: Medical Plan: Wt: 68 Kg ( 12/25 ) Est kcal needs as per MSJ: 1400 (40% carb, 30% protein/fat) Est fluid needs as per 25-30 ml/d: 2000 Est prot per day as per 1 g/kg bw: 70 Recommend fiber intake : 8-10 g per day and gradually increase to 25-28 g per day for women and 35-38 g for men or as tolerated Recommend sodium intake per day : less than 2000 mg Educated patient on: ( R = reviewed V = verbalizes understanding N/R = needs review N/A = not applicable * Food sources of carbohydrate, adequate serving sizes and its role in various health conditions: R V N/R * Differences between complex carbohydrates a simple carbohydrates, role of fiber in diet: R * Lean protein sources of foods: R V NR * Differences between types of fats and role in diet (mono on saturated fat fatty acids, saturated fatty acids, trans fats): R V N/R * Food sources of sodium in salt and healthy modifications for heart health in kidney health: R V R/V * Vitamins and minerals: R V N/R * Healthy plate method concept: R * Physical activity: Benefits a precaution: R V N/R * Hypoglycemia protocol (rule of 15): R V N/R * Dietary prevention of Hyperglycemia: R Patient Instructions: Follow healthy plate method at lunch and dinner Choose water, low fat milk with meals in place of juices/sodas Choose fruit as snack reducing on sugars from pastries and similar foods Coding Level of Care Code Nutr Indiv Intake (61384) Diagnoses Uncontrolled type 2 diabetes mellitus with hyperglycemia, with long-term current use of insulin E11.65; Z79.4 Time Spent (min) 30
[2024-12-24 21:29] VITALS: BMI 27.3
[2025-01-01 21:32] VITALS: BMI 27.2
== END 2024-12-24 12:27 | disposition home or self-care (01) ==
LOC: HO.ENCR 11:26
PROVIDERS: PCP Internal Medicine; Visit Provider Dietitian, Registered
DX: E11.65 Type 2 diabetes mellitus with hyperglycemia (principal); Z79.4 Long term (current) use of insulin

== ENCOUNTER → 2024-12-24 11:25 | Outpatient (BNVA) | payer OTHER, SELFPAY | PROVIDERS: PCP Internal Medicine; Visit Provider Dietitian, Registered | DX: E11.65 Type 2 diabetes mellitus with hyperglycemia (principal); Z71.3 Dietary counseling and surveillance; Z79.4 Long term (current) use of insulin | CPT/HCPCS: 97802; 99211 ==

== ENCOUNTER 2025-01-09 11:17 | Outpatient (AMB) | payer OTHER, SELFPAY ==
--- NOTE | 2025-01-09 11:32 | MHC.AMDMED ---
Intake Intake Visit Reasons: 30 min Product Lister Required: Yes Product Lister Language: Supervisor Metalizing Name: William [id number] Accompanied by: Self / Same As Patient Allergies No Known Allergies Allergy (Verified 12/07/24 11:51) HPI Comprehensive Diabetes Asmnt Most Recent Diabetes Results: No Data to Display [facility] Medical History (Updated 10/26/24 @ 12:07 by Zita Barger PA-C) CRISTINA (obstructive sleep apnea) Diabetes HTN (hypertension) CAD (coronary artery disease) Asthma Surgical History Hx of CABG Hx of heart surgery Hx of endoscopy History of colonoscopy Family History Father Hx of diabetes insipidus Mother No problems noted. 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 Patient did not bring new sensor or reader to today's visit. Instructed patient to make follow-up appointment and bring Dexcom G7 sensors in reader to next visit so that we set it up again Coding Level of Care Code Est Pt Level 1 (44632) Diagnoses Uncontrolled type 2 diabetes mellitus with hyperglycemia, with long-term current use of insulin E11.65; Z79.4
--- OUTSIDE RECORDS SUMMARY | 2025-01-09 13:23 | XMS_ITS | Encounter Summary ---
Author Organization [employer] [facility] Address [address] [place] [address] Care Team Providers Care Assistant Cook Name Role Phone Vivek Garland MD Primary Care Prov ider Encounter Details Date Type Department Care Team (Late Contact Info) Description 03/08/2023 Orders Only [facility] [address] [place], [place] [phone] Rosanne Roy LPN Social History Tobacco Use Types Packs/Day Years Used Date Smoking Tobacco: Never Assessed Depression Answer Date Recorded Patient Health Questionnaire-9 Score 0 12/28/2022 Depression Answer Date Recorded Patient Health Questionnaire-2 Score 0 12/28/2022 Comments Unknown Sex and Gender Information Value Date Recorded Sex Assigned at Female 08/02/2022 10:18 AM EDT Legal Sex Female 10:18 AM EDT Gender Identity Female 08/02/2022 10:18 AM EDT Sexual Orientation Straight 08/02/2022 10 :18 AM EDT documented as of this encounter Plan of Treatment Upcoming Encounters Date Type Department Care Team (Late st Contact Info) Description 03/28/2025 1:00 PM EDT Telemedicine [facility] [address] [place], [place] [phone] Vivek Garland MD [address] [place] [address] documented as of this encounter Visit Diagnoses Not on filedocumented in this encounter Additional Health Concerns Assessment Noted Time PHQ-9 Depression Total Score: 0 12/29/19 23 1:07 PM EDT documented as of this encounter Care Teams Assistant Cook Relationship Specialty Start Date End Date Vivek Garland MD [address] [place] [id number] PCP - General Internal Medicine 03/27/20 documented as of this encounter
--- OUTSIDE RECORDS SUMMARY | 2025-01-09 13:23 | XMS_ITS | Encounter Summary ---
Author Organization [employer] Address [address] [place] [address] Care Team Providers Care Wrapper Leaf Inspector Name Role Phone Vivek Garland MD Primary Care Prov ider Reason for Visit * Reason Onset Date Comments Appointment Request 08/18/2023 Encounter Details Date Type Department Care Team ([facility] st Contact Info) Description 08/18/2023 Telephone [facility] MEDICINE [address] [place] [address] Vivek Garland MD [address] [place] [address] Appointment Request Social History Tobacco Use Types Packs/Day Years Used Date Smoking Tobacco: Never Assessed Depression Answer Date Recorded Patient Health Questionnaire-9 Score 0 12/28/2022 Housing Stability Answer Date Recorded What is your housing situation today? I have merryaniket poe 08/03/[address] you li ve. Do you have problems with any of the following? None of the above 08/03/2023 Food Insecurity Answer Date Recorded Within the past 12 months, y ou worried that your food would run out before you got money to buy more: Never True 08/03/2023 Within the past 12 months,th e food you bought just didn't last and you didn't have enough money to get more: Never True 10/2022 Transportation Answer Date Recorded In the past 12 months, has l ack of transportation kept you from medical appts, meetings, work or from getting things needed for daily living? No 08/03/2023 Utilities Answer Date Recorded In the past 12 months, has t he electric, gas, oil or water Roomer Travel threatened to shut off services in your home? No 08/03/2023 Depression Answer Date Recorded Patient Health Questionnaire-2 Score 0 12/28/2022 Comments Unknown Sex and Gender Information Value Date Recorded Sex Assigned at Female 08/02/2022 10:18 AM EDT Legal Sex Female 10:18 AM EDT Gender Identity Female 08/02/2022 10:18 AM EDT Sexual Orientation Straight 08/02/2022 10 :18 AM EDT documented as of this encounter Miscellaneous Notes * Telephone Encounter - Kendal Alvaradooyo - 08/18/2023 2:34 PM EST Tc from pt requesting f/u appt with PCP, insurance underwriter sales ask pt if any concerns with her health and pt stated no but will like some blood work. documented in this encounter Plan of Treatment Upcoming Encounters Date Type Department Care Team (Late st Contact Info) Description 03/28/2025 1:00 PM EDT Telemedicine [facility] & PEDS [address] [place] [address] Vivek Garland MD [address] [place] [address] documented as of this encounter Visit Diagnoses Not on filedocumented in this encounter Additional Health Concerns Assessment Noted Time PHQ-9 Depression Total Score: 0 12/29/19 23 1:07 PM EDT documented as of this encounter Care Teams Wrapper Leaf Inspector Relationship Specialty Start Date End Date Vivek Garland MD [address] [place] [address] PCP - General Internal Medicine 03/27/20 documented as of this encounter
--- OUTSIDE RECORDS SUMMARY | 2025-01-09 13:23 | XMS_ITS | Encounter Summary ---
Author Organization [employer] Address [address] [place] [address] Care Team Providers Care [employer] Portal Developer Name Role Phone Vivek Garland MD Primary Care Prov ider Reason for Visit * Reason Comments Med Refill Encounter Details Date Type Department Care Team ([facility] st Contact Info) Description 01/09/2025 Refill [facility] MEDICINE [address] [place] [address] Vivek Garland MD [address] [place] [address] Type 2 diabetes mellitus without complications ([facility]/HCC) Social History Tobacco Use Types Packs/Day Years Used Date Smoking Tobacco: Former Cigarettes Q uit: 10/03/1994 Smokeless Tobacco: Never Alcohol Use Standard Drinks/Week Comments Not Currently 0 (1 standard drink = 0.6 oz pur e alcohol) Depression Answer Date Recorded Patient Health Questionnaire-9 Score 0 01/01/2025 Patient Health Questionnaire-9 Score 0 01/01/2025 Last PHQ-9: Questionnaire Data Not on file 0 01/01/2025 Housing Stability Answer Date Recorded What is your housing situation today? I have merry sing 01/01/[address] you li ve. Do you have problems with any of the following? None of the above 01/01/2025 Food Insecurity Answer Date Recorded Within the past 12 months, y ou worried that your food would run out before you got money to buy more: Never True 01/01/2025 Within the past 12 months,th e food you bought just didn't last and you didn't have enough money to get more: Never True 10/2024 Transportation Answer Date Recorded In the past 12 months, has l ack of transportation kept you from medical appts, meetings, work or from getting things needed for daily living? No 01/01/2025 Utilities Answer Date Recorded In the past 12 months, has t he electric, gas, oil or water company threatened to shut off services in your home? No 01/01/2025 Depression Answer Date Recorded Patient Health Questionnaire-2 Score 0 01/01/2025 Internet Access Answer Date Recorded Internet Access Q1 Yes 01/01/2025 Internet Access Q2 Not on file 01/01/2025 Comments Unknown Sex and Gender Information Value [...] 03/28/2025 1:00 PM EDT Telemedicine [facility] MED & PEDS [address] [place], [place] [phone] Vivek Garland MD [address] [place], [place] [phone] documented as of this encounter Goals Goal Patient Goal Type Associated Problems Recent Progress Patient-Stated? Author Blood Pressure < 140/90 Blood Pressure 136/63(2024 1:28 PM EDT) No Shruti Sorensen PharmD Hemoglobin A1c < 7 Result Component 8.4( 12:12 PM EST) No Shruti Sorensen PharmD documented as of this encounter Visit Diagnoses Diagnosis Type 2 diabetes mellitus without complications (CMS/HCC) documented in this encounter Additional Health Concerns Assessment Noted Time PHQ-9 Depression Total Score: 0 01/02/20 1:05 PM EDT documented as of this encounter Care Teams [employer] Portal Developer Relationship Specialty Start Date End Date Vivek Garland MD [address] [place], [place] [phone] PCP - General Internal Medicine 03/27/20 documented as of this encounter
--- OUTSIDE RECORDS SUMMARY | 2025-01-09 13:23 | XMS_ITS | Clinical Summary ---
Author Organization [facility] Address [address] [place] [address] Care Team Providers Care Extractor Tender Raw Stock Name Role Phone Vivek Garland MD Primary Care Prov ider Allergies No known active allergies Medications Fluticasone Furoate-Vilanter ol (Breo Ellipta) 200-25 MCG/ACT aerosol powderIndication s:Mixed simple and mucopurulent chronic bronchitis (CMS/HCC) INHALE ONE PUFF ONCE DAILY, at the same time each day 60 each 3 023 Active Incruse Ellipta 62.5 MCG/ACT aerosol powder Inhale 1 puff once daily at the same time each day 023 Active atorvastatin (Lipitor) 80 MG tablet Take 1 tablet (80 mg) by mouth Once per day. 90 tablet 3 024 2024 Active triamcinolone (Kenalog) 0.1 % cream Apply topically if needed in the morning and at bedtime (pain and swelling). 30 g 5 024 Active Multiple Vitamin (Multivitamin) tablet TAKE ONE TABLET EVERY MORNING 90 tablet 3 024 Active FeroSul 325 (65 Fe) MG tabletIndication s:Iron deficiency anemia due to chronic blood loss TAKE ONE TABLET EVERY MORNING 90 tablet 3 024 Active TechLite Plus Pen [place] 32G X 4 MM misc USE FOUR TIMES DAILY 200 each 3 024 Active Aspirin Low Dose 81 MG chewable tablet CHEW ONE TABLET EVERY MORNING 30 tablet 11 024 Active NovoLOG FLEXPEN 100 UNIT/ML pen INJECT 2 to 14 UNITS SUBCUTANEOUSLY THREE TIMES DAILY BEFORE MEALS 15 mL 5 025 Active Easy Touch Lancets 33G/Twist miscIndications: Type 2 diabetes mellitus without complications ([facility]) TEST BLOOD SUGAR THREE TIMES DAILY 100 each 3 025 Active Ozempic, 0.25 or 0.5 MG/DOSE, 2 MG/3ML solution pen-injector 025 Active Toujeo Max SoloStar 300 UNIT/ML injection 50 units daily 025 Active glipiZIDE XL (Glucotrol XL) 5 MG 24 hr tablet Take 5 mg by mouth Once per day. 025 Active TRUEplus Glucose 4 g chewable tablet chew 4 tablets every 15 minutes As Needed for hypoglycemia; until symptoms of low blood sugar are controlled 025 Active Continuous Glucose Sensor (Dexcom G7 Sensor) [facility] Active lisinopril 40 MG tabletIndication s:Primary hypertension TAKE ONE TABLET EVERY MORNING 90 tablet 3 025 Active Jardiance 25 MGIndications:Ty pe 2 diabetes mellitus without complication, without long-term current use of insulin ([facility]) TAKE ONE TABLET EVERY MORNING 90 tablet 1 025 Active FREESTYLE LITE test stripIndications :Type 2 diabetes mellitus without complications ([facility]) TEST BLOOD SUGAR THREE TIMES DAILY 100 strip 5 025 Active lisinopril 40 MG tabletIndication s:Primary hypertension TAKE ONE TABLET EVERY MORNING 90 tablet 3 023 2024 Discontinued FREESTYLE LITE test stripIndications :Type 2 diabetes mellitus without complications ([facility]) TEST BLOOD SUGAR THREE TIMES DAILY 100 strip 5 024 2024 Discontinued Jardiance 25 MGIndications:Ty pe 2 diabetes mellitus without complication, without long-term current use of insulin ([facility]) TAKE ONE TABLET EVERY MORNING 90 tablet 1 024 2024 Discontinued fluconazole (Diflucan) 150 MG tablet Take 1 tablet (150 mg) by mouth 1 (one) time for 1 dose. 1 tablet 025 2024 Active Problems Problem Noted Date Diagnosed Date Left foot pain 01/01/2025 Assessment & Plan (01/01/2025 2:31 PM EDT): No recent hx of trauma, will order xray, told to rest, wear appropiate shoes, take tylenol/use ice as needed Coronary artery disease invo lving the [place] coronary artery of the [place] heart without angina pectoris 11/09/2023 Assessment & Plan (01/01/2025 1:34 PM EDT): Denied chest pain, no shortness of breath, no changes will be amde Assessment & Plan (11/09/2023 10:21 AM EST): No reported episode of shortness of breath or chest pain, told to follow up with manuscript reader, S/P CABG x 3 11/09/2023 Assessment & Plan (06/06/2024 10:03 PM EDT): Patient was discharged from cardiology office due to multiple no show, will place new referral Mixed hyperlipidemia 11/09/2023 Assessment & Plan (09/19/2024 10:15 AM EST): Patient not taking statin as prescribed, seen by cardiology, will be started on alirocumab Assessment & Plan (05/18/2024 3:22 PM EDT): On atorvastatin 80mg, patient is not taking the statin as prescribed, risk were discussed, she will restart therapy and follow up in 4 months Assessment & Plan (11/09/2023 10:22 AM EST): On atorvastatin 80mg, ldl target <70, new labs will be ordered Moderate persistent asthma without complication 11/09/2023 Assessment & Plan (11/09/2023 10:23 AM EST): Followed by pneumology, using rescue inhaler less than 2 times a week Type 2 diabetes mellitus wit h diabetic peripheral angiopathy without gangrene, with long-term current use of insulin 11/09/2023 Assessment & Plan (01/01/2025 1:35 PM EDT): Followed at [facility], keep low carb/no sugar diet, exercise as tolerated, target a1c<7.0% Assessment & Plan (09/19/2024 10:14 AM EST): Uncontrolled, she has not been compliant with diet and medications, she understand the increased risk she is at of future comlication, discussed blood work results, will split lantus to BID 30 units for a toltal of 60 units daily Assessment & Plan (06/06/2024 10:03 PM EDT): Uncontrolled, blood work sent previously has not been done, she is on trulicity 4.5/levemir 50 units, jardiance and short acting insulin, follow up in 3 months Assessment & Plan (05/18/2024 3:22 PM EDT): On trulicity/jardiance/aspart and detemir, last A1c from 01/2024 not at target, she is not adhering to diet Assessment & Plan (11/09/2023 10:26 AM EST): On basal insulin 50 units and short acting as per scale, will send freestyle pricilla, continue jardiance watch for hypoglycemia, reinforced low carb/no sugar diet Eye exam done 09/2023 Colon cancer screening 11/12/2022 Assessment & Plan (11/09/2023 10:24 AM EST): Risk vs benefits discussed, will send cologuard Assessment & Plan (11/12/2022 2:55 PM EST): Will provide Fit test Encounter for screening mamm ogram for malignant neoplasm of breast 11/12/2022 Assessment & Plan (11/12/2022 2:56 PM EST): Screening mammogram will be ordered Primary hypertension 11/12/2022 Assessment & Plan (01/01/2025 1:35 PM EDT): Controlled, continue low sodium diet and exercise as tolerated Assessment & Plan (09/19/2024 10:13 AM EST): Controlled, althought she refers sometimes forgets to take the medication, she was oriented of importance of medication adherance, keep bp <130/80 Assessment & Plan (06/06/2024 10:01 PM EDT): Controlled, on lisinopril 40mg, continue low sodium diet, keep bp log, follow up in 4 monts Assessment & Plan (05/18/2024 3:19 PM EDT): Controlled, continue low sodium diet and exercise as tolerated, continue on lisinopril 40mg, Assessment & Plan (11/09/2023 10:19 AM EST): Controlled, continue lisinopril, bp target <130/80, no reported episode of chest pain/shortness of breath Assessment & Plan (01/06/2023 8:44 PM EDT): Controlled no changes will be made, reinforced low sodium diet and exercise as tolerated, follow up manuscript reader Assessment & Plan (11/12/2022 2:53 PM EST): Not at target, will increase lisinopril to 40mg, reinforced low sodium diet and exercise as tolerated, will follow up in 1 month Dietary counseling 11/12/2022 Exercise counseling 11/12/2022 Resolved Problems Problem Noted Date Diagnosed Date Resolved Date Type 2 diabetes mellitus wit hout complication, without long-term current use of insulin 11/12/2022 01/01/2025 Assessment & Plan (01/06/2023 8:47 PM EDT): leida Priest and shasta, no changes will be made, target A1c<7.0%, reinforced low carb/no sugar diet and exercise as tolerated Assessment & Plan (11/12/2022 2:55 PM EST): Controlled, no changes will be made, reinforced low carb/sugar diet Foot exam done was unremarkable Eye exam done in 07/2022 Type 2 diabetes mellitus 12/08/202010/2024 Encounters Date Type Department Care Team Description 01/09/2025 Refill [facility] [address] [place] [address] Vivek Garland MD Type 2 diabetes mellitus without complications ([facility]) 01/02/2025 Refill [facility] [address] [place] [address] Vivek Garland MD Type 2 diabetes mellitus without complication, without long-term current use of insulin ([facility]) 01/01/2025 1:00 PM EDT Telemedicine [facility] [address] [place] [address] Vivek Garland MD Primary hypertension (Primary Dx); Coronary artery disease involving the [place] coronary artery of the [place] heart without angina pectoris; Type 2 diabetes mellitus with diabetic peripheral angiopathy without gangrene, with long-term current use of insulin ([facility]); Mixed hyperlipidemia; Left foot pain 01/01/2025 Travel 12/12/2024 Refill [facility] [address] [place] [address] Vivek Garland MD Primary hypertension 12/07/2024 Orders Only GENERIC EXTERNAL DATA DEPARTMENT Provider, Generic External Data 12/03/2024 Travel 11/16/2024 Orders Only [facility] [address] [place] [address] Vivek Garland MD Type 2 diabetes mellitus without complication, without long-term current use of insulin ([facility]) (Primary Dx) 10/30/2024 Telephone [facility] [address] [place] [address] Luz Maria Rodrigues, PharmD 10/26/2024 Orders Only GENERIC EXTERNAL DATA DEPARTMENT Provider, Generic External Data from Last 3 Months Immunizations Name Administration Dates Next Due Hep B, adult 12/06/2022,06/30/2022,06/01/2022 Influenza High-dose Quadriva lent Preservative Free 09/05/2023 Influenza injectable quadriv alent preservative free 06/30/2022 Influenza, seasonal, injecta ble, preservative free 12/03/[address] [facility] SARS-CoV-2 Vaccination 01/31/2021 Pneumococcal Conjugate PCV 20 06/18/2022 RSV Bivalent 09/05/2023 Tdap 04/20/2021 Zoster, Recombinant 06/23/2021,04/20/2021 Social History Tobacco Use Types Packs/Day Years Used Date Smoking Tobacco: Former Cigarettes Q uit: 10/03/1994 Smokeless Tobacco: Never Tobacco Cessation:Counseling Given: No Alcohol Use Standard Drinks/Week Comments Not Currently 0 (1 standard drink = 0.6 oz pur e alcohol) Depression Answer Date Recorded Patient Health Questionnaire-9 Score 0 01/01/2025 Patient Health Questionnaire-9 Score 0 01/01/2025 Last PHQ-9: Questionnaire Data Not on file 0 01/01/2025 Housing Stability Answer Date Recorded What is your housing situation today? I have merry poe 01/01/[address] you li [...] Orientation Straight 08/02/2022 10 :18 AM EDT Last Filed Vital Signs Vital Sign Reading Time Taken Comments Blood Pressure 136/63 01/01/2025 1:28 PM EDT Pulse 88 11/12/2022 11:03 AM EST Temperature 36.6 ??C (97.8 ??F) 12/06/2022 11:[address] Respiratory Rate 20 11/12/2022 11:03 AM EST Oxygen Saturation - - Inhaled Oxygen Concentration - - Weight 67.1 kg (148 lb) 11/12/2022 11:03 AM EST Height 157.5 cm (5' 2 ) 11/12/2022 11:03 AM EST Body Mass Index 27.07 11/12/2022 11:03 AM EST Plan of Treatment Upcoming Encounters Date Type Department Care Team (Late st Contact Info) Description 03/28/2025 1:00 PM EDT Telemedicine [facility] [address] [place] [address] Vivek Garland MD [address] [place] [address] Health Maintenance Due Date Last Done Comments CT Colonography 1955 Colonoscopy 1955 FIT 1955 FOBT 1955 Sigmoidoscopy 1955 Diabetes: Foot Exam 1965 COVID-19 Vaccine ( season) 2024 01/31/2021, 01/02/2021 Tobacco Screening 09/05/2024 09/05/2023 Diabetes: Hemoglobin A1C 03/05/2025 025, 08/03/2024, 01/24/2024, Additional history exists Lipid Panel 08/03/2025 08/03/2024, 01/02, 11/12/2022, Additional history exists Diabetes: Urine Protein Screening 08/06/2025 08/06/2024, 05/28/2022, 04/08/2021 Alcohol/Substance Use Screening 01/01/2026 01/01/2025 Depression Screening 01/01/2026 01/01/2025, 01/02/20 SDOH Screening 01/01/2026 01/01/2025 Mammogram 01/05/2026 01/06/2024, 12/02, 05/18/2021 Eye Exam 04/02/2026 04/02/2024 Colorectal Cancer Screening 11/21/2026 FIT DNA/Cologuard 11/21/2026 11/21/2023 DTaP/Tdap/Td Vaccines (2 - Td or Tdap) 04/20/2031 04/20/2021 Zoster Vaccines Completed 06/23/2021, 04/20/2021 Pneumococcal Vaccine: 50+ Years Completed 06/18/2022 Hepatitis C Screening Completed 11/12/2022, 022 Hepatitis B Vaccines Completed 12/06/2022, 06/30/2022, 06/01/2022 RSV Patients and Patients Aged 60 years or older Completed 09/05/2023 Influenza Vaccine Completed 12/03/2024, , 06/30/2022 HIB Vaccines Aged Out No longer eligi [...] patient's age to complete this topic Meningococcal Vaccine Aged Out No bouchra kelly eligible based on patient's age to complete this topic RSV under 20 months Aged Out No longe r eligible based on patient's age to complete this topic Rotavirus Vaccines Aged Out No longer eligible based on patient's age to complete this topic Goals Goal Patient Goal Type Associated Problems Recent Progress Patient-Stated? Author Blood Pressure < 140/90 Blood Pressure 136/63(2024 1:28 PM EDT) No Shruti Sorensen PharmD Hemoglobin A1c < 7 Result Component 8.4( 12:12 PM EST) No Shruti Sorensen PharmD Procedures Procedure Name Priority Date/Time Associated Diagnosis Comments GLUCOSE, WHOLE BLOOD Routine 12/07/2024 12:04 PM EST POCT GLYCATED HEMOGLOBIN, TOTAL Routine 12/03/2024 12:12 PM EST Type 2 diabetes mellitus with diabetic peripheral angiopathy without gangrene, with long-term current use of insulin ([facility]) GLUCOSE, WHOLE BLOOD Routine 10/26/2024 11:56 AM EST ALBUMIN, RANDOM URINE W/CREATININE Routine 08/06/2024 11:20 AM EST Type 2 diabetes mellitus with diabetic peripheral angiopathy without gangrene, with long-term current use of insulin (CMS/HCC) LIPID PANEL, STANDARD Routine 08/03/2024 1:16 PM EDT Type 2 diabetes mellitus with diabetic peripheral angiopathy without gangrene, with long-term current use of insulin (CMS/HCC) BI MAMMOGRAM SCREENING TOMOSYNTHESIS BILATERAL Routine 01/06/2024 12:00 PM EDT LAB COLOGUARD?? COLON CANCER SCREEN Routine 11/21/2023 10:22 AM EST Coronary artery disease involving the [place] coronary artery of the [place] heart without angina pectoris Colon cancer screening Type 2 diabetes mellitus without complication, without long-term current use of insulin (CMS/HCC) HEPATITIS C AB W/REFL TO HCV RNA, QN, PCR Routine 11/12/2022 11:40 AM EST Type 2 diabetes mellitus without complication, without long-term current use of insulin (CMS/HCC) from Last 3 Months or Most Recently Relevant to Health Maintenance Results * (ABNORMAL) Glucose, Whole Blood (12/07/2024 12:04 PM EST) Only the most recent of2 resultswithin the time period is included. Glucose, Whole Blood 213(H) 60 - 115 mg/dL [facility] Comment:METER #: [id number] Testing performed in the Endocrinology Department [address] , [address], [facility]. 12/07/2024 12:0 4 PM EST 12/07/2024 12:08 PM EST us Generic External Data Provider LAB BLOOD ORDERAB LES Final Result [facility] [address] [place] [phone] * (ABNORMAL) POCT A1C (12/03/2024 12:12 PM EST) Hemoglobin A1C 8.4(A) 4.0 - 6.0 % QC Media Lot # [id number] Lot# Expiration Date Blood 12/03/2024 12:1 2 PM EST Vivek Falcon MD POINT OF CARE TEST ENTER/EDIT ORDERABLES Final Result * (ABNORMAL) Albumin, Random Urine W/Creatinine (08/06/2024 11:20 AM EST) Pathologist [facility] Creatinine, Urine 81.49 mg/dL [facility] Microalbumin Urine 31.0 mg/L [facility] Microalbum Creatinine Ratio Ur 38.0(H) <30 ug/mg cr [facility] Comment:Albumin/Creatinine R atio Reference Ranges: Normal: < 30 ug/mg creatinine Microalbuminuria: 30 - 300 ug/mg creatinineClinical Albuminuria: > 300 ug/mg creatinine Urine (Urine, Random) 08/06/2024 11:20 AM EST 08/06/2024 2:23 PM EST Vivek Falcon MD LAB URINE ORDERABL ES Final Result [facility] [address] [place] [phone] * (ABNORMAL) Lipid Panel, Standard (08/03/2024 1:16 PM EDT) Triglycerides 159(H) <150 mg/dL [facility] Comment:Desirable Triglyceri de: less than 150 mg/dLBorderline High Triglyceride 150-199 mg/dLHigh Triglyceride: 200-499 mg/dLVery High Triglyceride: greater than or equal to 5OO mg/dL Cholesterol 243(H) <200 mg/dL [facility] Comment:Desirable Cholestero l: less than 200 mg/dLBorderline High Cholesterol: 200-239 mg/dLHigh Cholesterol: greater than 239 mg/dL LDL Cholesterol Calculated 167(H) <100 mg/dL [facility] Comment:Desirable LDL: less than 100 mg/dLNear Optimal/Above Optimal LDL: 110- 129 mg/dLBorderline High LDL: 130-159 mg/dLHigh LDL: 160-189 mg/dLVery High LDL: greater than or equal to 190 mg/dL HDL Cholesterol 45 >40 mg/dL [facility] Comment:Desirable HDL: great er than 40 mg/dL Note: This HDL assay may give artificially low results in patients with liver disease. Blood Venous blood specimen / Unknown 08/03/2024 1:16 PM EDT 08/03/2024 2:13 PM EDT Vivek Falcon MD LAB BLOOD ORDERABL ES Final Result [facility] [address] [place] [phone] [phone] * BI Mammogram Screening Tomosynthesis Bilateral (01/06/2024 12:00 PM EDT) Anatomical Region Laterality Modality Breast Bilateral Mammography 01/06/2024 12:0 0 PM EDT Narrative 01/14/2024 5:29 PM EDT ? [facility] ? [address] ?[place] [address] ? Mammography Report ? Signed ? Patient: Jacek,Monica ?MR#: [id number] ?? [id number] ? : 1955 ?Acct:[id number] ? Age/Sex: 68 / F ?ADM Date: 04/05/24 ? Loc: HO.MAMMO ? Attending Ming Falcon MD ? Ordering Physician: Wilson Falcon,Vivek MD ?Res ?? ults: 1Negative ? Date of Service: 01/06/24 ?Follow Up: 1 Year From Orig ?? inal Mammogram ? Procedure(s): MM tomosynthesis screening BI ?? Accession Number(s): [id number] ? cc: Vivek Garland MD ? EXAMINATION: ?? MM SCREENING DIGITAL BREAST TOMOSYNTHESIS, BILATERAL ? CLINICAL INFORMATION: ? Screening. Asymptomatic. ? COMPARISON: ?? Mammography: This study is compared with prior exams dating back to ?? 2020. ? TECHNIQUE: ?? Digital breast tomosynthesis is performed in both the craniocaudal and ?? mediolateral oblique views along with computer-aided detection (CAD). ?? Synthesized 2D images are generated from the tomosynthesis. ? FINDINGS: ?? The breasts are heterogeneously dense, which may obscure small masses ?? (ACR BI-RADS breast composition Category c). ? There are no significant masses, abnormal calcifications, or other ?? abnormalities. ? MM/MM tomosynthesis screening BI ?? IMPRESSION: ?? No mammographic evidence of malignancy. ? ASSESSMENT: ? BI-RADS BI-RADS 1 - Negative ? RECOMMENDATION: ?? Routine annual mammography screening. ? 1 year F/U ? This examination should not preclude the clinical evaluation of a ?? suspicious palpable abnormality. ? This patient's information was entered into a reminder system with a ?? target due date for their next mammogram. ? Dictated By: ?Karol Briseno MD ? Signed By: ?<Electronically signed by Karol Briseno MD in [place]> ? 01/14/245 ? DD/ 1200 ? TD/TT: ? Respiratory Therapy Manager: ? Procedure Note Donotuseinterpreter, Image - 01/14/2024 [facility] [address] [place] [address] Mammography Report Signed Patient: Monica ReadMR#: [id number] : 5Acct:[id number] Age/Sex: 68 / FADM Date: 01/06/24 Loc: HO.MAMMO Attending Dr: Vivek Falcon MD Ordering Physician: Vivek Garland ults: 1Negative Date of Service: 01/06/24Follow Up: 1 Year From Orig inal Mammogram Procedure(s): MM tomosynthesis screening BI Accession Number(s): [id number] cc: Vivek Garland MD EXAMINATION: MM SCREENING DIGITAL BREAST TOMOSYNTHESIS, BILATERAL CLINICAL INFORMATION: Screening. Asymptomatic. COMPARISON: Mammography: This study is compared with prior exams dating back to 2020. TECHNIQUE: Digital breast tomosynthesis is performed in both the craniocaudal and mediolateral oblique views along with computer-aided detection (CAD). Synthesized 2D images are generated from the tomosynthesis. FINDINGS: The breasts are heterogeneously dense, which may obscure small masses (ACR BI-RADS breast composition Category c). There are no significant masses, abnormal calcifications, or other abnormalities. MM/MM tomosynthesis screening BI IMPRESSION: No mammographic evidence of malignancy. ASSESSMENT: BI-RADS BI-RADS 1 - Negative RECOMMENDATION: Routine annual mammography screening. 1 year F/U This examination should not preclude the clinical evaluation of a suspicious palpable abnormality. This patient's information was entered into a reminder system with a target due date for their next mammogram. Dictated By: Karol Briseno MD Signed By: <Electronically signed by Karol Briseno MD in OV> 01/14/24 1725 DD/ 1200 TD/TT: Respiratory Therapy Manager: Vivek Falcon MD IMG BI PROCEDURES Edited Result - Final * Cologuard?? colon cancer screening (11/21/2023 10:22 AM EST) Cologuard Result Negative Negative 11/28/19 5:38 PM EST [facility] (CLIA #:[id number]) Comment: NEGATIVE TEST RESULT. A negative Cologuard result indicates a low likelihood that a colorectal cancer (CRC) or advanced adenoma (adenomatous polyps with more advanced pre-malignant features) ??is present. The chance that a person with a negative Cologuard test has a colorectal cancer is less than 1 in 1500 (negative predictive value >99.9%) or has an ??advanced adenoma is less than ??5.3% (negative predictive value 94.7%). These data are based on a prospective cross-sectional study of 10,000 individuals at average risk for colorectal cancer who were screened with both Cologuard and colonoscopy. (Carter Pedraza et al, N Engl J Med 2014;370(14):1286- 1297) The normal value (reference range) for this assay is negative. COLOGUARD RE-SCREENING RECOMMENDATION: Periodic colorectal cancer screening is an important part of preventive healthcare for asymptomatic individuals at average risk for colorectal cancer. ??Following a negative Cologuard result, the [place] [employer] and U.S. Multi-Society Task Force screening guidelines recommend a Cologuard re-screening interval of 3 years. References: [place] [employer] Guideline for Colorectal Cancer Screening: https://www.cancer.org/cancer/egbrz-nfzdre-ovkwda/nmsbohomw-kfkgyjnfb-fxexhmg/ac s-rec ommendations.html.; Álvaro DK, Dionna CR, Dino SuarezK, Colorectal Cancer Screening: Recommendations for Physicians and Patients from the U.S. Multi-Society Task Force on Colorectal Cancer Screening , Am J Gastroenterology 2017; 112:2040-0673. TEST DESCRIPTION: Composite algorithmic analysis of stool DNA-biomarkers with hemoglobin immunoassay. ?? Quantitative values of individual biomarkers are not reportable and are not associated with individual biomarker result reference ranges. Cologuard is intended for colorectal cancer screening of adults of either sex, 45 years or older, who are at average-risk for colorectal cancer (CRC). Cologuard has been approved for use by the U.S. FDA. The performance of Cologuard was established in a cross sectional study of average-risk adults aged 50-84. Cologuard performance in patients ages 45 to 49 years was estimated by sub-group analysis of near-age groups. Colonoscopies performed for a positive result may find as the most clinically significant lesion: colorectal cancer [4.0%], advanced adenoma (including sessile serrated polyps greater than or equal to 1cm diameter) [20%] or non- advanced adenoma [31%]; or no colorectal neoplasia [45%]. These estimates are derived from a prospective cross-sectional screening study of 10,000 individuals at average risk for colorectal cancer who were screened with both Cologuard and colonoscopy. (Carter Pedraza et al, N Engl J Med 2014;370(14):5195-5686.) Cologuard may produce a false negative or false positive result (no colorectal cancer or precancerous polyp present at colonoscopy follow up). A negative Cologuard test result does not guarantee the absence of CRC or advanced adenoma (pre-cancer). The current Cologuard screening interval is every 3 years. ([employer] Society and U.S. Multi-Society Task Force). Cologuard performance data in a 10,000 patient pivotal study using colonoscopy as the reference method can be accessed at the following location: www.numberFire/results. Additional description of the Cologuard test process, warnings and precautions can be found at www.Maimai[employer]Beauty Worksrd.com. Stool specimen (specimen) 11/21/2023 10:22 AM EST 11/22/2023 1:57 PM EST Vivek Falcon MD LAB MOLECULAR DIAG NOSTICS ORDERABLES Final Result [facility] (CLIA #:[id number]) [place] [address] [address], * Hepatitis C Antibody with Reflex to HCV, RNA, Quantitative, Real-Time PCR (11/12/2022 11:40 AM EST) Hepatitis C Antibody NON-REACT IRA NON-REACT IRA [facility] Index 0.03 <1.00 [facility] Comment: HCV antibody was non-reactive. There is no laboratory evidence of HCV infection. In most cases, no further action is required. However, if recent HCV exposure is suspected, a test for HCV RNA (test code 79546) is suggested. For additional information please refer to http://education.[employer] Inc/faq/HJS82c7 (This link is being provided for informational/ educational purposes only.) Blood Venous blood specimen / Unknown 11/12/2022 11:40 AM EST 11/12/2022 11:41 AM EST Narrative [facility] - 11/17/2022 4:36 PM EST FASTING:YES FASTING: YES Vivek Falcon MD LAB BLOOD ORDERABL ES Final Result [facility] [address], [place] [address] [facility] [address] [facility], (Nl2) [place] [address] from Last 3 Months or Most Recently Relevant to Health Maintenance Insurance [facility] Care Teams Extractor Tender Raw Stock Relationship Specialty Start Date End Date Vivek Garland MD 505 [facility] [place] [address] PCP - General Internal Medicine 03/27/20
--- OUTSIDE RECORDS SUMMARY | 2025-01-09 13:23 | XMS_ITS | Encounter Summary ---
Author Organization [facility] Address [address] [facility] [address] [place] [address] Care Team Providers Care School Photograph Editor Name Role Phone Vivek Garland MD Primary Care Prov ider Encounter Details Date Type Department Care Team (Late st Contact Info) Description 04/14/2023 Orders Only [facility] MEDICINE [address] [place], [place] [phone] Sherin Garza LPN Social History Tobacco Use Types Packs/Day [...] Info) Description 03/28/2025 1:00 PM EDT Telemedicine [facility] CH[facility] MED & PEDS 505 [place], [place] [phone] Vivek Garland MD 505 [place], [place] [phone] documented as of this encounter Visit Diagnoses Not on filedocumented in this encounter Additional Health Concerns Assessment Noted Time PHQ-9 Depression Total Score: 0 12/29/19 23 1:07 PM EDT documented as of this encounter Care Teams School Photograph Editor Relationship Specialty Start Date End Date Vivek Garland MD [address] [place] [address] PCP - General Internal Medicine 03/27/20 documented as of this encounter
--- OUTSIDE RECORDS SUMMARY | 2025-01-09 13:23 | XMS_ITS | Encounter Summary ---
Author Organization [employer] Address [address] [facility] 7t [place] [address] Care Team Providers Care Regional Intermodal Truck Driver Name Role Phone Vivek Garland MD Primary Care Prov ider Encounter Details Date Type Department Care Team ([facility] st Contact Info) Description 07/12/2024 Orders Only [facility] CHC MED & PEDS 505 [place], [place] [phone] Vivek Garland MD 505 [place] [address] Social History Tobacco Use Types Packs/Day Years Used Date Smoking Tobacco: Former Cigarettes Q uit: 10/03/1994 Smokeless Tobacco: Never Alcohol Use Standard Drinks/Week Comments Not Currently 0 (1 standard drink = 0.6 oz pur e alcohol) Depression Answer Date Recorded Patient Health Questionnaire-9 Score 0 12/28/2022 Housing Stability Answer Date Recorded What is your housing situation today? I have merry poe 08/03/[address] you [...] 03/28/2025 1:00 PM EDT Telemedicine [facility] MED & PEDS 505 [place] [address] Vivek Garland MD 505 [place] [address] documented as of this encounter Goals Goal [...] documented as of this encounter Care Teams Regional Intermodal Truck Driver Relationship Specialty Start Date End Date Vivek Garland MD [address] [place] [address] PCP - General Internal Medicine 03/27/20 documented as of this encounter
--- OUTSIDE RECORDS SUMMARY | 2025-01-09 13:23 | XMS_ITS | Encounter Summary ---
Author Organization [employer] Address [address] [facility] 7t [place] [address] Care Team Providers Care Vacuum Bottle Assembler Name Role Phone Vivek Garland MD Primary Care Prov ider Encounter Details Date Type Department Care Team ([facility] Contact Info) Description 11/15/2022 Orders Only [facility] MEDICINE 230 [place], [place] [phone] Vivek Garland MD 505 [place], [place] [phone] Social History Tobacco Use Types Packs/Day Years Used Date Smoking Tobacco: Never Assessed Comments Unknown Sex and Gender Information Value Date Recorded Sex Assigned at Female 08/02/2022 10:18 AM EDT Legal Sex Female 10:18 AM EDT Gender Identity Female 08/02/2022 10:18 AM EDT Sexual Orientation Straight 08/02/2022 10 :18 AM EDT COVID-19 Exposure Response Date Recorded In the last 10 days, have yo u been in contact with someone who was confirmed or suspected to have Coronavirus/COVID-19? No / Unsure 11/12/2022 10:31 AM EST documented as of this encounter Plan of Treatment Upcoming Encounters Date Type Department Care Team (Late Contact Info) Description 03/28/2025 1:00 PM EDT Telemedicine [facility] CH[facility] MED & PEDS 505 [place], [place] [phone] Vivek Garland MD 505 [place], [place] [phone] documented as of this encounter Visit Diagnoses Not on filedocumented in this encounter Care Teams Vacuum Bottle Assembler Relationship Specialty Start Date End Date Vivek Garland MD [address] [place] [address] PCP - General Internal Medicine 03/27/20 documented as of this encounter
--- OUTSIDE RECORDS SUMMARY | 2025-01-09 13:23 | XMS_ITS | Clinical Summary ---
Author Organization [employer] [facility] Address [address] [place] [address] Care Team Providers Care Stone Engraver Name Role Phone Unavailable Primary Care Provider [...] - 2023-2 5 season) 2024 Influenza Vaccine (Season Ended) 2025 RSV Immunization Adult Patie nts (1 - 1-dose 75+ series) 2030 HIB [...] age to complete this topic Meningococcal B Vaccine Aged Out No l onger eligible based on patient's age to complete this topic RSV Immunization Patients Un elsy 20 months Aged Out No longer eligible b ased on patient's age to complete this topic Varicella Vaccines Aged Out No longer eligible based on patient's age to complete this topic
== END 2025-01-09 11:42 | disposition home or self-care (01) ==
LOC: HO.ENCR 11:18
PROVIDERS: PCP Internal Medicine; Visit Provider Registered Nurse Diabetes Educator
DX: E11.65 Type 2 diabetes mellitus with hyperglycemia (principal); Z79.4 Long term (current) use of insulin

== ENCOUNTER → 2025-01-09 11:17 | Outpatient (BNVA) | payer OTHER, SELFPAY | PROVIDERS: PCP Internal Medicine; Visit Provider Registered Nurse Diabetes Educator | DX: E11.65 Type 2 diabetes mellitus with hyperglycemia (principal); Z79.4 Long term (current) use of insulin | CPT/HCPCS: 99211 ==

== ENCOUNTER 2025-01-28 12:53 | Outpatient (AMB) | payer OTHER, SELFPAY ==
--- NOTE | 2025-01-28 13:14 | A.OFFVIS_ITS ---
VS Expanded 01/28/25 13:15 Height 5 ft 2 in Weight 149 lb 0.52 oz BMI 27.3 Intake Visit Reasons: T2DM Allergies No Known Allergies Allergy (Verified 12/07/24 11:51) Nutrition Presentation Details: Pt presents for MNT f/u for T2DM Pt reports working on diet modifications BS Monitoring Most Recent Diabetes Results: No Data to Display [facility] Medical History (Updated 10/26/24 @ 12:07 by Zita Barger PA-C) CRISTINA (obstructive sleep apnea) Diabetes HTN (hypertension) CAD (coronary artery disease) Asthma Surgical History Hx of CABG Hx of heart surgery Hx of endoscopy History of colonoscopy Family History Father Hx of diabetes insipidus Mother No problems noted. 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.4 - termite inspector (current) use of insulin Category: Medical Plan: Wt: 68 Kg ( 12/25 ), 01/25 Est kcal needs as per MSJ: 1400 (40% carb, 30% protein/fat) Est fluid needs as per 25-30 ml/d: 2000 Est prot per day as per 1 g/kg bw: 70 Recommend fiber intake : 8-10 g per day and gradually increase to 25-28 g per day for women and 35-38 g for men or as tolerated Recommend sodium intake per day : less than 2000 mg Educated patient on: ( R = reviewed V = verbalizes understanding N/R = needs review N/A = not applicable * Food sources of carbohydrate, adequate serving sizes and its role in various health conditions: R V N/R * Differences between complex carbohydrates a simple carbohydrates, role of fiber in diet: R * Lean protein sources of foods: R * Differences between types of fats and role in diet (mono on saturated fat fatty acids, saturated fatty acids, trans fats): R * Food sources of sodium in salt and healthy modifications for heart health in kidney health: R V R/V * Vitamins and minerals: R V N/R * Healthy plate method concept: R * Physical activity: Benefits a precaution: R , V * Hypoglycemia protocol (rule of 15): R V N/R * Dietary prevention of Hyperglycemia: R Patient Instructions: Continue following healthy plate method Choose low fat food cooking methods Include sources of omega 3 in your diet (fish,nuts/seeds) Coding Level of Care Code Nutr Indiv Subseq (47978) Diagnoses Uncontrolled type 2 diabetes mellitus with hyperglycemia, with long-term current use of insulin E11.65; Z79.4 Time Spent (min) 30
[2025-01-28 13:15] VITALS: BMI 27.3
--- OUTSIDE RECORDS SUMMARY | 2025-01-28 15:16 | XMS_ITS | Encounter Summary ---
Author Organization [employer] [facility] Address [address] [facility] 7t [place] [address] Care Team Providers Care Puller Through Name Role Phone Vivek Garland MD Primary Care Prov ider Encounter Details Date Type Department Care Team (Late Contact Info) Description 03/08/2023 Orders Only [facility] MED & PEDS [address] [place], [place] [phone] Rosanne Roy LPN Social History Tobacco Use [...] Info) Description 03/28/2025 1:00 PM EDT Telemedicine [facility] MED & PEDS [address] [place], [place] [phone] Vivek Garland MD 505 [place] [address] documented as of this encounter Visit Diagnoses Not on filedocumented in this encounter Additional Health Concerns Assessment Noted Time PHQ-9 Depression Total Score: 0 12/29/19 23 1:07 PM EDT documented as of this encounter Care Teams Puller Through Relationship Specialty Start Date End Date Vivek Garland MD [address] [place] [address] PCP - General Internal Medicine 03/27/20 documented as of this encounter
--- OUTSIDE RECORDS SUMMARY | 2025-01-28 15:16 | XMS_ITS | Encounter Summary ---
Author Organization [facility] Address [address] [facility] 7t [place] [address] Care Team Providers Care Gear Machine Operator General Name Role Phone Vivek Garland MD Primary Care Prov ider Encounter Details Date Type Department Care Team ([facility] [place] Contact Info) Description 11/15/[address] [facility] MEDICINE 230 [place], [place] [phone] Vivek Garland MD 505 [place], [place] [phone] Social History Tobacco Use Types Packs/Day Years [...] Info) Description 03/28/2025 1:[address] [facility] CHC MED & PEDS 505 [place], [place] [phone] Vivek Garland MD 505 [place], [place] [phone] documented as of this encounter Visit Diagnoses Not on filedocumented in this encounter Care Teams Gear Machine Operator General Relationship Specialty Start Date End Date Vivek Garland MD [address] [place] [address] PCP - General Internal Medicine 03/27/20 documented as of this encounter
--- OUTSIDE RECORDS SUMMARY | 2025-01-28 15:16 | XMS_ITS | Clinical Summary ---
Author Organization [employer] [facility] Address [address] [facility] 7t [place] [address] Care Team Providers Care Print Project Manager Name Role Phone Vivek Garland MD Primary [...] tablet 3 024 Active TechLite Plus Pen Quincy 32G X 4 MM misc USE FOUR TIMES DAILY 200 each 3 024 Active Aspirin Low Dose 81 MG chewable tablet CHEW ONE TABLET EVERY MORNING 30 tablet 11 024 Active NovoLOG FLEXPEN 100 UNIT/ML pen INJECT 2 to 14 UNITS SUBCUTANEOUSLY THREE TIMES DAILY BEFORE MEALS 15 mL 5 025 Active Easy Touch Lancets 33G/Twist miscIndications: Type 2 diabetes mellitus without complications ([facility]) TEST BLOOD SUGAR THREE TIMES DAILY 100 [...] Active Continuous Glucose Sensor (Dexcom G7 Sensor) misc Active lisinopril 40 MG tabletIndication s:Primary hypertension TAKE ONE TABLET EVERY MORNING 90 tablet 3 025 Active Jardiance 25 MGIndications:Ty pe 2 diabetes mellitus without complication, without long-term current use of insulin ([facility]) TAKE ONE TABLET EVERY MORNING 90 tablet 1 025 Active FREESTYLE LITE test stripIndications :Type 2 diabetes mellitus without complications ([facility]) TEST BLOOD SUGAR THREE TIMES DAILY 100 strip 5 025 Active FREESTYLE LITE test stripIndications :Type 2 diabetes mellitus without complications ([facility]) TEST BLOOD SUGAR THREE TIMES DAILY 100 strip 5 024 2024 Discontinued Jardiance 25 MGIndications:Ty pe 2 diabetes mellitus without complication, without long-term current use of insulin ([facility]) TAKE ONE TABLET EVERY MORNING 90 tablet [...] as needed Coronary artery disease invo lving campo coronary artery of campo heart without angina pectoris 11/09/2023 Assessment & Plan (01/01/2025 1:34 PM EDT): Denied chest pain, no shortness of breath, no changes will be amde Assessment & Plan (11/09/2023 10:21 AM EST): No reported episode of shortness of breath or chest pain, told to follow up with plugger man, S/P CABG x 3 11/09/2023 Assessment & [...] Plan (01/01/2025 1:35 PM EDT): Followed at [facility] endocrinology, keep low carb/no sugar diet, exercise [...] diet and exercise as tolerated, follow up plugger man Assessment & Plan (11/12/2022 2:53 PM EST): [...] Type Department Care Team Description 01/09/2025 Refill [facility] MEDICINE [address] [place] [address] Vivek Garland MD Type 2 diabetes mellitus without complications ([facility]) 01/02/2025 Refill [facility] MEDICINE [address] [place] [address] Vivek Garland MD Type 2 diabetes mellitus without complication, without long-term current use of insulin ([facility]) 01/01/2025 1:00 PM EDT Telemedicine [facility] MED & PEDS [address] [place] [address] Vivek Garland MD Primary hypertension (Primary Dx); Coronary artery disease involving campo coronary artery of campo heart without angina pectoris; Type 2 diabetes mellitus with diabetic peripheral angiopathy without gangrene, with long-term current use of insulin ([facility]); Mixed hyperlipidemia; Left foot pain 01/01/2025 Travel 12/12/2024 Refill [facility] MEDICINE [address] [place] [address] Vivek Garland MD Primary hypertension 12/07/2024 Orders Only GENERIC EXTERNAL DATA DEPARTMENT Provider, Generic External Data 12/03/2024 Travel 11/16/2024 Orders Only [facility] MED & PEDS [address] [place] [address] Vivek Garland MD Type 2 diabetes mellitus without complication, without long-term current use of insulin ([facility]) (Primary Dx) 10/30/2024 Telephone [facility] MED & PEDS [address] [place] [address] Luz Maria Rodrigues, Jasper from Last 3 Months Immunizations Name Administration Dates Next Due Hep B, adult 12/06/2022,06/30/2022,06/01/2022 Influenza High-dose Quadriva lent Preservative Free 09/05/2023 Influenza injectable quadriv alent preservative free 06/30/2022 Influenza, seasonal, injecta ble, preservative free 12/03/2024 Leonard SARS-CoV-2 Vaccination 01/31/2021 Pneumococcal Conjugate PCV 20 [...] Info) Description 03/28/2025 1:00 PM EDT Telemedicine [facility] CH[facility] MED & PEDS [address] [place] [address] Vivek Garland MD [address] [place] [address] Health Maintenance Due Date Last Done Comments [...] gangrene, with long-term current use of insulin ([facility]) ALBUMIN, RANDOM URINE W/CREATININE Routine 08/06/2024 11:20 AM EST Type 2 diabetes mellitus with diabetic peripheral angiopathy without gangrene, with long-term current use of insulin ([facility]) LIPID PANEL, STANDARD Routine 08/03/2024 1:16 PM EDT Type 2 diabetes mellitus with diabetic peripheral angiopathy without gangrene, with long-term current use of insulin (CMS/HCC) BI MAMMOGRAM SCREENING TOMOSYNTHESIS BILATERAL Routine 01/06/2024 12:00 PM EDT LAB COLOGUARD?? COLON CANCER SCREEN Routine 11/21/2023 10:22 AM EST Coronary artery disease involving campo coronary artery of campo heart without angina pectoris Colon cancer screening [...] Glucose, Whole Blood (12/07/2024 12:04 PM EST) Glucose, Whole Blood 213(H) 60 - 115 mg/dL [facility] Comment:METER #: [id number] Testing performed in the Endocrinology Department [address] , [address], [facility]. 12/07/2024 12:0 4 PM EST 12/07/2024 12:08 PM EST us Generic External Data Provider LAB BLOOD ORDERAB LES Final Result [facility] [address] [place], [place] [phone] * (ABNORMAL) POCT A1C (12/03/2024 12:12 PM EST) Hemoglobin A1C 8.4(A) 4.0 - 6.0 % QC Media Lot # [id number] Lot# Expiration Date Blood 12/03/2024 12:1 2 PM EST Vivek Falcon MD POINT OF CARE TEST ENTER/EDIT ORDERABLES Final Result * (ABNORMAL) Albumin, Random Urine W/Creatinine (08/06/2024 11:20 AM EST) Creatinine, Urine 81.49 mg/dL [facility] Microalbumin Urine 31.0 mg/L H [facility] Microalbum Creatinine Ratio Ur 38.0(H) <30 ug/mg cr [facility] Comment:Albumin/Creatinine R atio Reference Ranges: Normal: < 30 ug/mg creatinine Microalbuminuria: 30 - 300 ug/mg creatinineClinical Albuminuria: > 300 ug/mg creatinine Urine (Urine, Random) 08/06/2024 11:20 AM EST 08/06/2024 2:23 PM EST us Vivek Falcon MD LAB URINE ORDERABL ES Final Result [facility] [address] [place] [address] [phone] * (ABNORMAL) Lipid Panel, Standard (08/03/2024 1:16 PM EDT) Triglycerides 159(H) <150 mg/dL [facility] Comment:Desirable Triglyceri de: less than 150 mg/dLBorderline High Triglyceride 150-199 mg/dLHigh Triglyceride: 200-499 mg/dLVery High Triglyceride: greater than or equal to 5OO mg/dL Cholesterol 243(H) <200 mg/dL [facility] Comment:Desirable Cholestero l: less than 200 mg/dLBorderline High Cholesterol: 200-239 mg/dLHigh Cholesterol: greater than 239 mg/dL LDL Cholesterol Calculated 167(H) <100 mg/dL [facility] Comment:Desirable LDL: less than 100 mg/dLNear Optimal/Above Optimal LDL: 110- 129 mg/dLBorderline High LDL: 130-159 mg/dLHigh LDL: 160-189 mg/dLVery High LDL: greater than or equal to 190 mg/dL HDL Cholesterol 45 >40 mg/dL [facility] Comment:Desirable HDL: great er than 40 mg/dL Note: This HDL assay may give artificially low results in patients with liver disease. Blood Venous blood specimen / Unknown 08/03/2024 1:16 PM EDT 08/03/2024 2:13 PM EDT Vivek Falcon MD LAB BLOOD ORDERABL ES Final Result [facility] [address] [place] [address] [phone] * BI Mammogram Screening Tomosynthesis Bilateral (01/06/2024 12:00 PM EDT) Anatomical Region Laterality Modality Breast Bilateral Mammography 01/06/2024 12:0 0 PM EDT Narrative 01/14/2024 5:29 PM EDT ? [facility] ? [address] ?[place] [address] ? Mammography Report ? Signed ? Patient: Jacek,Monica ?MR#: [id number] ?? [id number] ? : 1955 ?Acct:[id number] ? Age/Sex: 68 / F ?ADM Date: 01/06/24 ? Loc: HO.MAMMO ? Attending Dr: Vivek Falcon MD ? Ordering Physician: Vivek Garland MD ?Res ?? ults: 1Negative ? Date of Service: 04/05/24 ?Follow Up: 1 Year From Orig ?? inal Mammogram ? Procedure(s): MM tomosynthesis screening BI ?? Accession Number(s): [id number] ? cc: Vivek Garland MD ? EXAMINATION: [...] 01/14/245 ? DD/ 1200 ? TD/TT: ? Looper Operator: ? Procedure Note Lay, Zane - 01/14/2024 Julio [facility] [address] [place] [address] Mammography Report Signed Patient: Monica Read#: [id number] : 5Acct:[id number] Age/Sex: 68 / FADM Date: 01/06/24 Loc: HO.MAMMO Attending Dr: Vivek Falcon MD Ordering Physician: Vivek Garland ults: 1Negative Date of Service: 01/06/24Follow Up: 1 Year From Orig inal Mammogram Procedure(s): MM tomosynthesis screening BI Accession Number(s): [id number] cc: Vivek Garland MD EXAMINATION: MM SCREENING [...] in OV> 01/14/24 1725 DD/ 1200 TD/TT: Looper Operator: Vivek Falcon MD IM BI PROCEDURES Edited Result - Final * Cologuard?? colon cancer screening (11/21/2023 10:22 AM EST) Cologuard Result Negative Negative 11/28/19 5:38 PM EST [facility] (CLIA #:[id number]) Comment: NEGATIVE TEST RESULT. A negative Cologuard [...] screened with both Cologuard and colonoscopy. (Carter Burden al, N Engl J Med 2014;370(14):1286- 1297) [...] Cancer Society Guideline for Colorectal Cancer Screening: https://www.cancer.org/cancer/zlhvd-btsbfn-pdivqf/vnotbqqpw-gjojcfgaj-rsnpalg/ac s-rec ommendations.html.; Álvaro DK, Dionna MURRAY, Dino SuarezK, Colorectal Cancer Screening: Recommendations for Physicians and Patients from the U.S. Multi-Society Task Force on Colorectal Cancer Screening , Am J Gastroenterology 2017; 112:1403-5849. TEST DESCRIPTION: Composite algorithmic analysis of stool [...] screened with both Cologuard and colonoscopy. (Carter Burden al, N Engl J Med 2014;370(14):5110-4740.) Cologuard may produce a false negative or [...] can be accessed at the following location: www.[employer]ink[employer]/results. Additional description of the Cologuard test process, warnings and precautions can be found at www.[employer].com. Stool specimen (specimen) 11/21/2023 10:22 AM EST 11/22/2023 1:57 PM EST Vivek Falcon MD LAB MOLECULAR DIAG NOSTICS ORDERABLES Final Result [facility] (CLIA #:[id number]) [place] [address], * Hepatitis C Antibody with Reflex to HCV, RNA, Quantitative, Real-Time PCR (11/12/2022 11:40 AM EST) Hepatitis C Antibody NON-REACT IRA NON-REACT IRA [employer] Index 0.03 <1.00 [employer] Comment: HCV antibody was non-reactive. There is no laboratory evidence of HCV infection. In most cases, no further action is required. However, if recent HCV exposure is suspected, a test for HCV RNA (test code 63968) is suggested. For additional information please refer to http://education.[employer]/faq/YDO25z9 (This link is being provided for informational/ educational purposes only.) Blood Venous blood specimen / Unknown 11/12/2022 11:40 AM EST 11/12/2022 11:41 AM EST Narrative [facility] - 11/17/2022 4:36 PM EST FASTING:YES FASTING: YES Vivek Falcon MD LAB BLOOD ORDERABL ES Final Result [facility] [address] [facility], [place] [address] [facility] [address] [facility], (N[address]) [place] [address] from Last 3 Months or Most Recently Relevant to Health Maintenance Insurance [facility] [employer] (HMO D-SNP) [employer] [id number] Care Teams Print Project Manager Relationship Specialty Start Date End Date Vivek Garland MD [address] [place] [address] [place] [address] PCP - General Internal Medicine 03/27/20
--- OUTSIDE RECORDS SUMMARY | 2025-01-28 15:16 | XMS_ITS | Clinical Summary ---
Author Organization [employer] [facility] ity Address [address] [place] [address] Care Team Providers Care Ax Survey Worker Name Role Phone Unavailable Primary Care Provider [...]
--- OUTSIDE RECORDS SUMMARY | 2025-01-28 15:16 | XMS_ITS | Encounter Summary ---
Author Organization [employer] Address [address] [facility] [address] [place] [address] Care Team Providers Care Learning And Development Assistant Name Role Phone Vivek Garland MD Primary Care Prov ider Reason for Visit * Reason Onset Date Comments Appointment Request 08/18/2023 Encounter Details Date Type Department Care Team ([facility] st Contact Info) Description 08/18/2023 Telephone [facility] [address] [place] [address] Vivek Garland MD [address] [place] [address] Appointment Request Social History Tobacco Use Types [...] t he electric, gas, oil or water [email or web address] threatened to shut off services in your [...] from pt requesting f/u appt with PCP, curriculum writer ask pt if any concerns with her health and pt stated no but will like some blood work. documented in this encounter Plan of Treatment Upcoming Encounters Date Type Department Care Team (Late st Contact Info) Description 03/28/2025 1:00 PM EDT Telemedicine [facility] [address] [place] [address] Vivek Garland MD [address] [place] [address] documented as of this encounter Visit Diagnoses Not on filedocumented in this encounter Additional Health Concerns Assessment Noted Time PHQ-9 Depression Total Score: 0 12/29/19 23 1:07 PM EDT documented as of this encounter Care Teams Learning And Development Assistant Relationship Specialty Start Date End Date Vivek Garland MD [address] [place] [address] PCP - General Internal Medicine 03/27/20 documented as of this encounter
--- OUTSIDE RECORDS SUMMARY | 2025-01-28 15:16 | XMS_ITS | Encounter Summary ---
Author Organization [employer] Address [address] [facility] [address] [place] [address] Care Team Providers Care Analytical Technician Name Role Phone Vivek Garland MD Primary Care Prov ider Encounter Details Date Type Department Care Team ([facility] st Contact Info) Description 07/12/2024 Orders Only [facility] [address] [place], [place] [phone] Vivek Garland MD [address] [place] [address] Social History Tobacco Use Types Packs/Day Years [...] Info) Description 03/28/2025 1:00 PM EDT Telemedicine [facility] [address] [place] [address] Vivek Garland MD [address] [place] [address] documented as of this encounter Goals Goal [...] documented as of this encounter Care Teams Analytical Technician Relationship Specialty Start Date End Date Vivek Garland MD [address] [place] [address] PCP - General Internal Medicine 03/27/20 documented as of this encounter
--- OUTSIDE RECORDS SUMMARY | 2025-01-28 15:16 | XMS_ITS | Encounter Summary ---
Author Organization [facility] Address [address] [facility] [address] [place] [address] Care Team Providers Care Backer Up Name Role Phone Vivek Garland MD Primary Care Prov ider Encounter Details Date Type Department Care Team (Late st Contact Info) Description 04/14/[address] [facility] [address] [place], [place] [phone] Sherin Garza LPN Social History Tobacco Use [...] Description 03/28/2025 1:[address] [facility] [address] [place], [place] [phone] Vivek Garland MD [address] [place], [place] [phone] documented as of this encounter Visit Diagnoses Not on filedocumented in this encounter Additional Health Concerns Assessment Noted Time PHQ-9 Depression Total Score: 0 12/29/19 23 1:07 PM EDT documented as of this encounter Care Teams Backer Up Relationship Specialty Start Date End Date Vivek Garland MD [address] [place] [id number] PCP - General Internal Medicine 03/27/20 documented as of this encounter
== END 2025-01-28 13:41 | disposition home or self-care (01) ==
LOC: HO.ENCR 12:53
PROVIDERS: PCP Internal Medicine; Visit Provider Dietitian, Registered
DX: E11.65 Type 2 diabetes mellitus with hyperglycemia (principal); Z79.4 Long term (current) use of insulin

== ENCOUNTER → 2025-01-28 12:53 | Outpatient (BNVA) | payer OTHER, SELFPAY | PROVIDERS: PCP Internal Medicine; Visit Provider Dietitian, Registered | DX: E11.65 Type 2 diabetes mellitus with hyperglycemia (principal); Z79.4 Long term (current) use of insulin | CPT/HCPCS: 97803 ==

== ENCOUNTER 2025-03-19 10:58 | Outpatient (AMB) | payer OTHER, SELFPAY ==
--- NOTE | 2025-03-19 11:02 | A.OFFVIS_ITS ---
Vital Signs 03/19/25 11:04 Height 5 ft 2 in Weight 147 lb 4.301 oz BMI 26.9 BP 134/62 Blood Pressure Location Lt brachial Position Sitting Pulse 105 H Pulse Source Monitor Intake Visit Reasons: 6 mth f/up Broadcasting Equipment Mechanic Required: Yes Broadcasting Equipment Mechanic Language: Email Marketing Specialist Name: [id number] Accompanied by: Self / Same As Patient Allergies No Known Allergies Allergy (Verified 12/07/24 11:51) Medication List - Last Reconciled 03/19/25 by Bethel Marvin MD alcohol swabs pad topical TID alirocumab (Praluent Pen) 75 mg subcut Q2W aspirin 81 mg PO DAILY atorvastatin 80 mg PO BEDTIME blood-glucose sensor (FireID G7 Sensor device) Use daily As directed to monitor glucose. change q 10 days ferrous sulfate 325 mg PO DAILY fluticasone furoate-vilanterol 200-25 mcg/dose (Breo Ellipta) 1 inh inhalation DAILY 30 days glipizide ER 5 mg PO DAILY glucose (Dex4 Glucose) 16 grams (4 x 4 gram) PO Q15M PRN insulin aspart U-100 (Novolog FlexPen U-100 Insulin aspart) 12 units (0.12 mL) subcut TID insulin glargine U-300 conc (Toujeo Max U-300 SoloStar) 50 units (0.1667 mL) subcut DAILY lancets As directed levalbuterol tartrate 45 mcg/actuation 2 puffs PO Q6H PRN 30 days lisinopril 40 mg PO DAILY multivitamin 1 tab PO DAILY pen needle, diabetic As directed semaglutide (Ozempic) 0.5 mg (0.736 mL) subcut QWEEK umeclidinium 62.5 mcg/actuation 1 inh PO DAILY 30 days HPI Comments Details: Monica returns for follow-up regarding coronary artery disease. In 2020, she underwent coronary artery bypass surgery. Multiple cardiovascular risk factors including diabetes, hypertension, dyslipidemia. Risk factors are not well controlled. Patient herself does not have any overt symptoms like angina or shortness of breath or in fact anything cardiac sounding. She states she is getting along okay. [facility] Medical History CRISTINA (obstructive sleep apnea) Diabetes HTN (hypertension) CAD (coronary artery disease) Asthma Surgical History Hx of CABG Hx of heart surgery Hx of endoscopy History of colonoscopy Family History Father Hx of diabetes insipidus Mother No problems noted. Other Asthma Social History Household Members: None Household Members Other:: alone Alcohol intake: never Patient Tobacco Use Status: Never used Tobacco Review of Systems Const Denies chills, Denies fatigue, Denies fever(s), Denies frequent falls, Denies weakness, Denies weight gain and Denies weight loss ENT Denies dizziness Card Denies chest pain, Denies leg edema, Denies lightheadedness, Denies palpitations, Denies dyspnea and Denies dyspnea on exertion Resp Denies cough, Denies dyspnea and Denies dyspnea on exertion GI Denies hematochezia Musc Denies abnormal gait, Denies muscle weakness, Denies numbness, Denies radiating pain into limb and Denies tingling Neuro Denies abnormal gait, Denies dizziness, Denies frequent falls, Denies numbness, Denies tingling and Denies weakness Endo Denies fatigue and Denies palpitations Physical Exam Vital Signs: Last Vital Signs Pulse 105 H 03/19/25 11:04 BP 134/62 03/19/25 11:04 BMI result Body Mass Index 26.9 Const General: comfortable and no acute distress Orientation/consciousness: patient oriented x3 HEENT Other: Unremarkable Head: Yes normal to inspection Neck Neck: Yes normal visual inspection Chest Chest palpation & inspection: normal inspection of the chest Resp Auscultation: clear to auscultation bilaterally Cardio Palpation: normal PMI Heart sounds: S1 normal heart sound present, S2 normal heart sound present, no gallops, no murmurs and no rubs GI Palpation (GI): Soft to palpation Back/Spine/Pelvis Other: unremarkable Skin General skin exam: no rashes or lesions noted Neuro General: patient oriented x3 Extrem General: Yes normal to inspection Psych Mental Status: mental status grossly normal Office Procedures EKG Details: EKG with sinus tachycardia at 105/Min; cannot exclude old inferior infarct; [place] [id number], Complete Assessment & Plan Assessment & Plan (1) CAD (coronary artery disease): Code(s): I25.10 - Atherosclerotic heart disease of [place] coronary artery without angina pectoris Category: Medical Qualifiers: Associated angina: without angina Coronary Disease-Associated Artery/Lesion type: [place] artery [place] vs. transplanted heart: [place] heart Qualified Code(s): I25.10 - Atherosclerotic heart disease of [place] coronary artery without angina pectoris Plan: Clinically, no angina. Remain on long-term aspirin. Lipids are high in spite of statins. Praluent was stent last time but she never guarded as she states there was some insurance issue. We will request RN to check it. (2) Hx of CABG: Code(s): Z95.1 - Presence of aortocoronary bypass graft Category: Surgical Plan: CABG 2019. OLMOS to LAD; SVG to OM 2; radial artery to OM 1. Recovered completely. (3) HTN (hypertension): Code(s): I10 - Essential (primary) hypertension Category: Medical Qualifiers: Hypertension type: primary hypertension Qualified Code(s): I10 - Essential (primary) hypertension Plan: Stable. On lisinopril. 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 Most recently 8.6%. Prior to that, 10.3%. Listed to be on multiple meds including insulin, glipizide, Ozempic. Coding Level of Care Code Est Pt Level 4 (90640) Diagnoses Coronary artery disease involving [place] coronary artery of [place] heart without angina pectoris I25.10 Associated angina: without angina Coronary Disease-Associated Artery/Lesion type: [place] artery [place] vs. transplanted heart: [place] heart Hx of CABG Z95.1 Primary hypertension I10 Hypertension type: primary hypertension Type 2 diabetes mellitus with hyperglycemia, with long-term current use of i nsulin E11.65; Z79.4 Diabetes mellitus complication status: with hyperglycemia Diabetes mellitus retirement insulin use: with retirement use Diabetes mellitus type: type 2 CPT Codes EKG - CPT: 69532-[id number], Complete ([id number])
[2025-03-19 11:04] VITALS: BP 134/62; PULSE 105; BMI 26.9
--- OUTSIDE RECORDS SUMMARY | 2025-03-19 12:28 | XMS_ITS | Clinical Summary ---
Author Organization [employer] Address [address] [place] [address] Care Team Providers Care Piling Cutter Name Role Phone Vivek Garland MD Primary [...] Once per day. 90 tablet 3 024 Active triamcinolone (Kenalog) 0.1 % cream Apply [...] tablet 3 024 Active TechLite Plus Pen [place] 32G X 4 MM misc USE FOUR TIMES DAILY 200 each 3 024 Active Aspirin Low Dose 81 MG chewable tablet CHEW ONE TABLET EVERY MORNING 30 tablet 11 024 Active NovoLOG FLEXPEN 100 UNIT/ML pen INJECT 2 to 14 UNITS SUBCUTANEOUSLY THREE TIMES DAILY BEFORE MEALS 15 mL 5 025 Active Ozempic, 0.25 or 0.5 MG/DOSE, 2 MG/3ML solution pen-injector Active Toujeo Max SoloStar 300 UNIT/ML injection 50 units daily Active glipiZIDE XL (Glucotrol XL) 5 MG 24 hr tablet Take 5 mg by mouth Once per day. Active TRUEplus Glucose 4 g chewable tablet chew 4 tablets every 15 minutes As Needed for hypoglycemia; until symptoms of low blood sugar are controlled Active Continuous Glucose Sensor (Dexcom G7 Sensor) [facility] Active lisinopril 40 MG tabletIndication s:Primary hypertension TAKE ONE TABLET EVERY MORNING 90 tablet 3 025 Active Jardiance 25 MGIndications:Ty pe 2 diabetes mellitus without complication, without long-term current use of insulin ([facility]) TAKE ONE TABLET EVERY MORNING 90 tablet 1 025 Active FREESTYLE LITE test stripIndications :Type 2 diabetes mellitus without complications ([facility]) TEST BLOOD SUGAR THREE TIMES DAILY 100 strip 5 025 Active Easy Touch Lancets 33G/Twist miscIndications: Type 2 diabetes mellitus without complications ([facility]) TEST BLOOD SUGAR THREE TIMES DAILY 100 each 11 025 Active econazole nitrate 1 % creamIndications :Type 2 diabetes mellitus with diabetic peripheral angiopathy without gangrene, with long-term current use of insulin ([facility]) Apply topically Once per day. 15 g 025 2025 Active Blood Glucose Monitoring Suppl (FreeStyle [place] Lite) w/Device kitIndications:T ype 2 diabetes mellitus with diabetic peripheral angiopathy without gangrene, with long-term current use of insulin ([facility]) Use to test blood sugar 2 times daily 1 kit 025 Active Easy Touch Lancets 33G/Twist miscIndications: Type 2 diabetes mellitus without complications ([facility]) TEST BLOOD SUGAR THREE TIMES DAILY 100 each 3 025 2024 Discontinued Active Problems Problem Noted Date Diagnosed Date Left foot pain 01/01/2025 Assessment & Plan (01/01/2025 2:31 PM EDT): No recent hx of trauma, will order xray, told to rest, wear appropiate shoes, take tylenol/use ice as needed Coronary artery disease invo lving [place] coronary artery of [place] heart without angina pectoris 11/09/2023 Assessment & Plan (01/01/2025 1:34 PM EDT): Denied chest pain, no shortness of breath, no changes will be amde Assessment & Plan (11/09/2023 10:21 AM EST): No reported episode of shortness of breath or chest pain, told to follow up with protective service specialist, S/P CABG x 3 11/09/2023 Assessment & [...] Plan (01/01/2025 1:35 PM EDT): Followed at [facility] endocr[facility]ology, keep low carb/no sugar diet, exercise [...] diet and exercise as tolerated, follow up protective service specialist Assessment & Plan (11/12/2022 2:53 PM EST): [...] Assessment & Plan (01/06/2023 8:47 PM EDT): Jarkarmen, leida and levemir, no changes will be made, target A1c<7.0%, reinforced low carb/no sugar diet and exercise as tolerated Assessment & Plan (11/12/2022 2:55 PM EST): Controlled, no changes will be made, reinforced low carb/sugar diet Foot exam done was unremarkable Eye exam done in 07/2022 Type 2 diabetes mellitus 12/08/202010/2024 Encounters Date Type Department Care Team Description 03/18/2025 9:40 AM EDT Office Visit [facility] [address] [place] [address] Miquel Onofre MD Type 2 diabetes mellitus with diabetic peripheral angiopathy without gangrene, with long-term current use of insulin ([facility]) (Primary Dx); Tinea corporis; Primary hypertension 03/18/2025 Refill [facility] [address] [place] [address] Vivek Garland MD 03/18/2025 Travel 03/15/2025 Telephone [facility] [address] [place] [address] Vivek Garland MD Nurse Triage 03/15/2025 Refill [facility] [address] [place] [address] Kanchan Boyer MD Type 2 diabetes mellitus without complications ([facility]) 03/12/2025 Telephone [facility] [address] [place] [address] Vivek Garland MD New Glucose Monitor 03/12/2025 Telephone [facility] [address] [place] [address] Vivek Garland MD Nurse Triage 01/09/2025 Refill [facility] [address] [place] [address] Vivek Garland MD Type 2 diabetes mellitus without complications ([facility]) 01/02/2025 Refill [facility] [address] [place] [address] Vivek Garland MD Type 2 diabetes mellitus without complication, without long-term current use of insulin ([facility]) 01/01/2025 1:00 PM EDT Telemedicine [facility] [address] [place] [address] Vivek Garland MD Primary hypertension (Primary Dx); Coronary artery disease involving [place] coronary artery of [place] heart without angina pectoris; Type 2 diabetes mellitus with diabetic peripheral angiopathy without gangrene, with long-term current use of insulin ([facility]); Mixed hyperlipidemia; Left foot pain 01/01/2025 Travel from Last 3 Months Immunizations Immunization Administration Dates Next Due Hep B, adult [...] Sign Reading Time Taken Comments Blood Pressure 161/78 03/18/2025 9:36 AM EDT Pulse 92 03/18/2025 9:36 AM EDT Temperature 36.6 ??C (97.8 ??F) 03/18/2025 9:36 AM ED T Respiratory Rate 20 03/18/2025 9:36 AM EDT Oxygen Saturation 98% 03/18/2025 9:36 AM EDT Inhaled Oxygen Concentration - - Weight 67.6 kg (149 lb) 03/18/2025 9:36 AM EDT Height 157.5 cm (5' 2 ) 03/18/2025 9:36 AM EDT Body Mass Index 27.25 03/18/2025 9:36 AM EDT Plan of Treatment Upcoming Encounters Date Type Department Care Team (Late st Contact Info) Description 03/28/2025 1:00 PM EDT Telemedicine [facility] [address] [place] [address] Vivek Garland MD [address] [place] [address] Health Maintenance Due Date Last Done Comments CT Colonography 1955 Colonoscopy 1955 FIT 1955 FOBT 1955 Sigmoidoscopy 1955 Diabetes: Foot Exam 1965 COVID-19 Vaccine ( season) 2024 01/31/2021, 01/02/2021 Diabetes: Hemoglobin A1C 06/18/2025 025, 12/03/2024, 08/03/2024, Additional history exists Lipid Panel 08/03/2025 08/03/2024, 01/02, 11/12/2022, Additional history exists Diabetes: Urine Protein Screening 08/06/2025 08/06/2024, 05/28/2022, 04/08/2021 Alcohol/Substance Use Screening 01/01/2026 01/01/2025 Depression Screening 01/01/2026 01/01/2025, 01/02/20 SDOH Screening 01/01/2026 01/01/2025 Mammogram 01/05/2026 01/06/2024, 12/02, 05/18/2021 Tobacco Screening 03/18/2026 03/18/2025 Eye Exam 04/02/2026 04/02/2024 Colorectal Cancer Screening [...] Author Blood Pressure < 140/90 Blood Pressure 161/78(2024 9:36 AM EDT) No Shruti Sorensen PharmD Hemoglobin A1c < 7 Result Component 9.8( 9:50 AM EDT) No Shruti Sorensen PharmD Procedures Procedure Name Priority Date/Time Associated Diagnosis Comments POCT GLUCOSE Routine 03/18/2025 9:51 AM EDT Type 2 diabetes mellitus with diabetic peripheral angiopathy without gangrene, with long-term current use of insulin (CMS/HCC) POCT GLYCATED HEMOGLOBIN, TOTAL Routine 03/18/2025 9:50 AM EDT Type 2 diabetes mellitus with diabetic peripheral angiopathy without gangrene, with long-term current use of insulin (CMS/HCC) ALBUMIN, RANDOM URINE W/CREATININE Routine 08/06/2024 11:20 [...] 10:22 AM EST Coronary artery disease involving [place] coronary artery of [place] heart without angina pectoris Colon cancer screening Type 2 diabetes mellitus without complication, without long-term current use of insulin (CMS/HCC) HEPATITIS C AB W/REFL TO HCV RNA, QN, PCR Routine 11/12/2022 11:40 AM EST Type 2 diabetes mellitus without complication, without long-term current use of insulin (CMS/HCC) from Last 3 Months or Most Recently Relevant to Health Maintenance Results * (ABNORMAL) POCT Glucose (03/18/2025 9:51 AM EDT) Glucose Blood, POC 353(A) 60 - 200 mg/dL [employer] Lot # [id number] Lot# Expiration Date Comment:RANDOM Blood Capillary blood specimen / Unknown 03/18/2025 9:51 AM EDT us Miquel Onofre MD POINT OF CARE TEST ENTER/ED IT ORDERABLES Final Result * (ABNORMAL) POCT HGB A1C (03/18/2025 9:50 AM EDT) Hemoglobin A1C 9.8(A) 4.0 - 6.0 % [employer] Lot # [id number] Lot# Expiration Date Blood 03/18/2025 9:50 AM EDT us Miquel Onofre MD POINT OF CARE TEST ENTER/ED IT ORDERABLES Final Result * (ABNORMAL) Albumin, Random Urine W/Creatinine (08/06/2024 11:20 AM EST) Creatinine, Urine 81.49 mg/dL [facility] Microalbumin Urine 31.0 mg/L [facility] Microalbum Creatinine Ratio Ur 38.0(H) <30 ug/mg cr [facility] Comment:Albumin/Creatinine R atio Reference Ranges: Normal: < 30 ug/mg creatinine Microalbuminuria: 30 - 300 ug/mg creatinineClinical Albuminuria: > 300 ug/mg creatinine Urine (Urine, Random) 08/06/2024 11:20 AM EST 08/06/2024 2:23 PM EST us Vivek Falcon MD LAB URINE ORDERABL ES Final Result [facility] [address] [place] [phone] * (ABNORMAL) Lipid Panel, Standard (08/03/2024 1:16 PM EDT) Triglycerides 159(H) <150 mg/dL [facility] Comment:Desirable Triglyceri de: less than 150 mg/dLBorderline High Triglyceride 150-199 mg/dLHigh Triglyceride: 200-499 mg/dLVery High Triglyceride: greater than or equal to 5OO mg/dL Cholesterol 243(H) <200 mg/dL [facility] Comment:Desirable Cholestero l: less than 200 mg/dLBorderline High Cholesterol: 200-239 mg/dLHigh Cholesterol: greater than 239 mg/dL LDL Cholesterol Calculated 167(H) <100 mg/dL [facility] Comment:Desirable LDL: less than 100 mg/dLNear Optimal/Above Optimal LDL: 110- 129 mg/dLBorderline High LDL: 130-159 mg/dLHigh LDL: 160-189 mg/dLVery High LDL: greater than or equal to 190 mg/dL HDL Cholesterol 45 >40 mg/dL [facility] Comment:Desirable HDL: great er than 40 mg/dL Note: This HDL assay may give artificially low results in patients with liver disease. Blood Venous blood specimen / Unknown 08/03/2024 1:16 PM EDT 08/03/2024 2:13 PM EDT Vivek Falcon MD LAB BLOOD ORDERABL ES Final Result [facility] [address] [place] [phone] * BI Mammogram Screening Tomosynthesis Bilateral (01/06/2024 12:00 PM EDT) Anatomical Region Laterality Modality Breast Bilateral Mammography 01/06/2024 12:0 0 PM EDT Narrative 01/14/2024 5:29 PM EDT ? [facility] ? [address] [place] [address] ? Mammography Report ? Signed ? Patient: Jacek,Monica ?MR#: [id number] ?? [id number] ? : 1955 ?Acct:[id number] ? Age/Sex: 68 / F ?ADM Date: 04/05/24 ? Loc: HO.MAMMO ? Attending Dr: Vivek Falcon MD ? Ordering Physician: Vivek Garland MD ?Res ?? ults: 1Negative ? Date of Service: 01/06/24 ?Follow Up: 1 Year From Orig ?? inal Mammogram ? Procedure(s): MM tomosynthesis screening BI ?? Accession Number(s): [id number] ? cc: Vivek Garland MD ? EXAMINATION: [...] MD ? Signed By: ?<Electronically signed by Karlo Briseno MD in OV> ? 01/14/24 1725 ? DD/ 1200 ? TD/TT: ? Beef Farmer: ? Procedure Note Dontatiter, Image - 01/14/2024 [place] [facility] [address] [place] [address] Mammography Report Signed Patient: Monica ReadMR#: [id number] : 5Acct:[id number] Age/Sex: 68 / FADM Date: 01/06/24 Loc: HO.MAMMO Attending Dr: Vivek Falcon MD Ordering Physician: Vivek Garland ults: 1Negative Date of Service: 01/06/24Follow Up: 1 Year From Orig inal Mammogram Procedure(s): MM tomosynthesis screening BI Accession Number(s): [id number] cc: Vivek Garland MD EXAMINATION: MM SCREENING [...] date for their next mammogram. Dictated By: Kaorl Briseno MD Signed By: <Electronically signed by Karol Briseno MD in OV> 01/14/24 1725 DD/ 1200 TD/TT: Beef Farmer: Vivek Falcon MD IMG BI PROCEDURES Edited Result - Final * Cologuard?? colon cancer screening (11/21/2023 10:22 AM EST) Cologuard Result Negative Negative 11/28/19 5:38 PM EST [facility] (CLIA #:[id number]) Comment: NEGATIVE TEST RESULT. A negative Cologuard [...] cancer. ??Following a negative Cologuard result, the [place] [employer] and U.S. Multi-Society Task Force screening guidelines recommend a Cologuard re-screening interval of 3 years. References: [place] [employer] Guideline for Colorectal Cancer Screening: https://www.cancer.org/cancer/iomdx-nzqcrz-zmxljg/tvntcwvpv-vdidnrtsm-qrkufyn/ac s-rec ommendations.html.; Álvaro NICHOLS, Dionna MURRAY, Dino BRADY, Colorectal Cancer Screening: Recommendations for Physicians and Patients from the U.S. Multi-Society Task Force on Colorectal Cancer Screening , Am J Gastroenterology 2017; 112:4748-7639. TEST DESCRIPTION: Composite algorithmic analysis of stool [...] Pedraza et al, N Engl J Med 2014;370(14):0025-3224.) Cologuard may produce a false negative or false positive result (no colorectal cancer or precancerous polyp present at colonoscopy follow up). A negative Cologuard test result does not guarantee the absence of CRC or advanced adenoma (pre-cancer). The current Cologuard screening interval is every 3 years. ([place] [employer] and U.S. Multi-Society Task Force). Cologuard performance data in a 10,000 patient pivotal study using colonoscopy as the reference method can be accessed at the following location: www.[employer]/results. Additional description of the Cologuard test process, warnings and precautions can be found at www.[employer]. Stool specimen (specimen) 11/21/2023 10:22 AM EST 11/22/2023 1:57 PM EST Vivek Falcon MD LAB MOLECULAR DIAG NOSTICS ORDERABLES Final Result [facility] (CLIA #:[id number]) [place] [address], * Hepatitis C Antibody with Reflex to HCV, RNA, Quantitative, Real-Time PCR (11/12/2022 11:40 AM EST) Hepatitis C Antibody NON-REACT IRA NON-REACT IRA [facility] Index 0.03 <1.00 [facility] Comment: HCV antibody was non-reactive. There is no laboratory evidence of HCV infection. In most cases, no further action is required. However, if recent HCV exposure is suspected, a test for HCV RNA (test code 89484) is suggested. For additional information please refer to http://education.[employer]/faq/EVO70o7 (This link is being provided for informational/ educational purposes only.) Blood Venous blood specimen / Unknown 11/12/2022 11:40 AM EST 11/12/2022 11:41 AM EST Narrative [facility] - 11/17/2022 4:36 PM EST FASTING:YES FASTING: YES Vivek Falcon MD LAB BLOOD ORDERABL ES Final Result [facility] [address], [place] [address] [employer] [place] [employer] [address] [facility], ([address]) [place] [phone] from Last 3 Months or Most Recently Relevant to Health Maintenance Insurance [facility] [employer] (HMO D-SNP) [place] [id number] 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
== END 2025-03-19 11:24 | disposition home or self-care (01) ==
LOC: HO.HCS 10:58
PROVIDERS: PCP Internal Medicine; Visit Provider Internal Medicine
DX: I25.10 Atherosclerotic heart disease of native coronary artery without angina pectoris (principal); Z95.1 Presence of aortocoronary bypass graft; I10 Essential (primary) hypertension; E11.65 Type 2 diabetes mellitus with hyperglycemia; Z79.4 Long term (current) use of insulin
CPT/HCPCS: 93010; 99214

== ENCOUNTER → 2025-03-19 10:58 | Outpatient (BNVA) | payer OTHER, SELFPAY | PROVIDERS: PCP Internal Medicine; Visit Provider Internal Medicine | DX: I25.10 Atherosclerotic heart disease of native coronary artery without angina pectoris (principal); Z95.1 Presence of aortocoronary bypass graft; I10 Essential (primary) hypertension; E11.65 Type 2 diabetes mellitus with hyperglycemia; Z79.4 Long term (current) use of insulin | CPT/HCPCS: 93005; 99212 ==

== ENCOUNTER 2025-03-22 12:50 | Outpatient (AMB) | payer OTHER, SELFPAY ==
[2025-03-22 12:52] VITALS: BP 128/56; PULSE 94; O2SAT 98; BMI 27.4
--- NOTE | 2025-03-22 12:52 | A.OFFVIS_ITS ---
Vital Signs 03/22/25 12:52 Height 5 ft 2 in Weight 149 lb 14.629 oz BMI 27.4 BP 128/56 L Blood Pressure Location Lt brachial Position Sitting Pulse 94 Pulse Source Pulse Oximeter Pulse Oximetry (%) 98 Oxygen Delivery Method Room Air Intake Visit Reasons: T2DM Intake Note: Patient present today for Type 2 Diabetes Mellitus Last Diabetic eye exam: 2023 Last Podiatry Visit: Doesn't have one Random Glucose: 188 mg/dl HgA1C: 10.1% Inspector Insulation Required: No Accompanied by: SEARCH LEAD Allergies No Known Allergies Allergy (Verified 03/22/25 12:58) Medication List - Last Reconciled 03/22/25 by Zita Barger PA-C alcohol swabs pad topical TID aspirin 81 mg PO DAILY atorvastatin 80 mg PO BEDTIME blood-glucose sensor (Dexcom G7 Sensor device) Use daily As directed to monitor glucose. change q 10 days evolocumab (Repatha SureClick) 140 mg subcut Q2W ferrous sulfate 325 mg PO DAILY fluticasone furoate-vilanterol 200-25 mcg/dose (Breo Ellipta) 1 inh inhalation DAILY 30 days glipizide ER 5 mg PO DAILY glucose (Dex4 Glucose) 16 grams (4 x 4 gram) PO Q15M PRN insulin aspart U-100 (Novolog FlexPen U-100 Insulin aspart) 12 units (0.12 mL) subcut TID insulin glargine U-300 conc (Toujeo Max U-300 SoloStar) 50 units (0.1667 mL) subcut DAILY lancets As directed levalbuterol tartrate 45 mcg/actuation 2 puffs PO Q6H PRN 30 days lisinopril 40 mg PO DAILY multivitamin 1 tab PO DAILY pen needle, diabetic As directed semaglutide (Ozempic) 0.5 mg (0.736 mL) subcut QWEEK umeclidinium 62.5 mcg/actuation 1 inh PO DAILY 30 days HPI HPI T2DM: Details: Patient is a 69-year-old female with a significant past medical history of coronary artery disease, s/p CABG, CRISTINA, diabetes, hypertension, hyperlipidemia, anemia and asthma presenting today for a diabetic f/u. SEARCH LEAD is here today Phone senior it auditor [phone] Yeni Turner: She was diagnosed with diabetes around the age 50. Her last A1c was 10.1. She is currently on Ozempic 0.5 mg weekly, novolog 14 units t.i.d., Toujeo 50 units at night. -She stopped the ozempic due to nausea. States that she is not interested in Mounjaro or any other medications at this point and just wants to be treated with the insulin. She states her A1c increased because she had to travel to [place] for a in the family and did not take any of her medication with her. She states since being back her blood sugars have been better. -at times it was uncomfortable injecting 50 units of the Lantus, jardiance causes upset stomach, She tried metformin n/v/d. Trulicity causes n/v, stopped glipizide. CGM- She has not used the sensor in over a month. She states that she was supposed to follow up with the store operations associate regarding how to use this sensor properly and to understand the function of the reader. She did bring in her reader today but there is no sensor data because she has been uncomfortable with the idea of putting the sensor on herself. She does have microalbuminuria and known CAD Diabetic Education- states she never had this and would like to and would like to see a under presser States she has a strong fam hx of t2dm and when she was diagnosed she was confirmed by pcp t2dm. CV: Blood pressure today in the office is 128/58. She is currently on lisinopril 40 mg. Her cholesterol is not at goal. Her LDL should be less than 70 in her last lipid panel did show an LDL of 167. She states she just started Repatha. [facility] Medical History CRISTINA (obstructive sleep apnea) Diabetes HTN (hypertension) CAD (coronary artery disease) Asthma Surgical History Hx of CABG Hx of heart surgery Hx of endoscopy History of colonoscopy Family History Father Hx of diabetes insipidus Mother No problems noted. Other Asthma Social History Household Members: None Household Members Other:: alone Alcohol intake: never Patient Tobacco Use Status: Never used Tobacco Physical Exam Vital Signs: Last Vital Signs Pulse 94 03/22/25 12:52 BP 128/56 L 03/22/25 12:52 Pulse Ox 98 03/22/25 12:52 Oxygen Delivery Method Room Air 03/22/25 12:52 BMI result Body Mass Index 27.4 Const Orientation/consciousness: patient oriented x3 HEENT Ears: hearing grossly normal bilaterally Neck Thyroid: Thyroid normal Lymphatic: no lymphadenopathy noted Resp Auscultation: clear to auscultation bilaterally Cardio Rate: regular rate Rhythm: regular rhythm Heart sounds: S1 normal heart sound present and S2 normal heart sound present Skin General skin exam: no rashes or lesions noted Neuro General: patient oriented x3, gait normal and no focal motor deficits Results AMB Hemoglobin A1c AMB Hemoglobin A1c 10.1 % Last Edit by NITA Wolf on 03/22/25 13:10 Results Reviewed Results Reviewed: Laboratory Last Values Glucose (Clinic) 188 mg/dL (60-115) H 03/22/25 13:00 Hgb A1c (Clinic) 10.1 % (4.0-6.0) H 03/22/25 13:02 Laboratory Tests 08/03/24 08/06/24 10/26/24 13:16 11:20 11:56 Sodium 144 Potassium 3.6 Chloride 108 Carbon Dioxide 25 Anion Gap 15 BUN 13 Creatinine 0.85 Estimated GFR > 60 Glucose (Clinic) 89 Hemoglobin A1c % 10.3 H Hgb A1c (Clinic) AST 45 H ALT 38 H Triglycerides 159 H Cholesterol 243 H LDL Cholesterol, Calc 167 H HDL Cholesterol 45 Urine Creatinine 81.49 Urine Microalbumin 31.0 Microalb/Creat Ratio 38.0 H 12/07/24 12:06 Sodium Potassium Chloride Carbon Dioxide Anion Gap BUN Creatinine Estimated GFR Glucose (Clinic) Hemoglobin A1c % Hgb A1c (Clinic) 8.6 H AST ALT Triglycerides Cholesterol LDL Cholesterol, Calc HDL Cholesterol Urine Creatinine Urine Microalbumin Microalb/Creat Ratio Assessment & Plan Assessment & Plan (1) Uncontrolled type 2 diabetes mellitus with hyperglycemia, with long-term current use of insulin: Code(s): E11.65 - Type 2 diabetes mellitus with hyperglycemia; 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 I applied the sensor for her as she did not want to. I showed her and her SEARCH LEAD again how to do this. We reviewed how to work the reader. I have increase Toujeo to 60 units I have encouraged compliance with the NovoLog and refilled today. She does not require any back up testing supplies that she states she has freestyle Lite at home along with many lancets and test strips. She is not interested in trialing any other medication. We reviewed signs and symptoms of hyper and hypoglycemia that would require emergent medical treatment. Short term follow up. (2) HTN (hypertension): Code(s): I10 - Essential (primary) hypertension Category: Medical Qualifiers: Hypertension type: primary hypertension Qualified Code(s): I10 - Essential (primary) hypertension Plan: Continue current regimen (3) Hyperlipidemia: Code(s): E78.5 - Hyperlipidemia, unspecified Category: Medical Plan: continue current regimen. We will monitor. 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 Changed From insulin glargine U-300 conc (Toujeo Max U-300 SoloStar) 50 units (0.1667 mL) subcut DAILY 6 mL 3RF To insulin glargine U-300 conc (Toujeo Max U-300 SoloStar) 60 units (0.2 mL) subcut DAILY 6 mL 3RF From insulin aspart U-100 (Novolog FlexPen U-100 Insulin aspart) with breakfast, lunch and supper 12 units (0.12 mL) subcut TID 15 mL 0RF To insulin aspart U-100 (Novolog FlexPen U-100 Insulin aspart) with breakfast, lunch and supper 14 units (0.14 mL) subcut TID 15 mL 0RF Discontinued glipizide ER Discontinued Reason: Doctor's Order 5 mg PO DAILY 90 tabs 0RF alirocumab (Praluent Pen) Discontinued Reason: Doctor's Order 75 mg subcut Q2W 2 mL 5RF semaglutide (Ozempic) Discontinued Reason: Patient no longer taking 0.5 mg (0.736 mL) subcut QWEEK 3 mL 4RF Coding Level of Care Code Est Pt Level 5 (11233) Diagnoses Uncontrolled type 2 diabetes mellitus with hyperglycemia, with long-term current use of insulin E11.65; Z79.4 Primary hypertension I10 Hypertension type: primary hypertension Hyperlipidemia E78.5
--- OUTSIDE RECORDS SUMMARY | 2025-03-22 12:54 | XMS_ITS | Clinical Summary ---
Author Organization [employer] [facility] ity Address [address] [place] [address] Care Team Providers Care Director Teen Post Name Role Phone Unavailable Primary Care Provider [...]
[2025-03-22 13:04] LABS: Glucose, Whole Blood 188 mg/dL (60-115)
== END 2025-03-22 13:39 | disposition home or self-care (01) ==
LOC: HO.ENCR 12:51
PROVIDERS: PCP Internal Medicine; Visit Provider Physician Assistant
DX: E11.65 Type 2 diabetes mellitus with hyperglycemia (principal); Z79.4 Long term (current) use of insulin; I10 Essential (primary) hypertension; E78.5 Hyperlipidemia, unspecified; Z13.9 Encounter for screening, unspecified

== ENCOUNTER → 2025-03-22 12:50 | Outpatient (BNVA) | payer OTHER, SELFPAY | PROVIDERS: PCP Internal Medicine; Visit Provider Physician Assistant | DX: E11.65 Type 2 diabetes mellitus with hyperglycemia (principal); E78.5 Hyperlipidemia, unspecified; I10 Essential (primary) hypertension; Z79.4 Long term (current) use of insulin; Z79.899 Other long term (current) drug therapy | CPT/HCPCS: 82947; 83036; 99212 ==

== ENCOUNTER 2025-05-01 11:26 | Outpatient (AMB) | payer OTHER, SELFPAY ==
[2025-05-01 11:31] VITALS: BP 140/60; PULSE 97; O2SAT 98; BMI 27.4
--- NOTE | 2025-05-01 11:31 | A.OFFVIS_ITS ---
Vital Signs 05/01/25 11:31 Height 5 ft 2 in Weight 149 lb 14.629 oz BMI 27.4 BP 140/60 H Blood Pressure Location Lt brachial Position Sitting Pulse 97 Pulse Source Pulse Oximeter Pulse Oximetry (%) 98 Oxygen Delivery Method Room Air Intake Visit Reasons: Asthma Allergies No Known Allergies Allergy (Verified 05/01/25 11:33) HPI Comments Details: 07/03/2020 the patient is here for pulmonary follow-up visit. Overall she has been doing well on the current respiratory regimen. She continues the Breo in the incruise daily. She has not had any exacerbations or need for prednisone. She did try to undergo pulmonary function studies but she did have a difficult time period therefore I find that the results are suboptimal and not consistent with her respiratory status. She also had a chest x-ray from [facility] that was without any acute disease. Recently she did get the flu shot. Will provide her with the pneumococcal 23 and hopefully she can get the Prevnar 13 next year. 03/30/2021 the patient is here for a pulmonary follow-up visit. Patient has been responding well to the current respiratory regimen. She does use the Breo daily. She does have a Xopenex HFA available as needed. She has had to use it more than twice a week specially when it is hot and humid. The patient major issue is her sleep. She has significant daytime drowsiness. Her Richmond score is elevated 12/24. She states that she has discomfort of her shoulders and she usually is a side sleeper. However with the shoulder discomfort she has been having to sleep on her back. She has been having more snoring that she has been told about. Her sleep stents to be fragmented. The patient has significant cardiovascular risk factors. Recently she did develop chest discomfort and she was seen at the [facility] ER because she that was cardiac. her workup was reassuring. She was able to go home and she has not had any more chest discomfort. Based on his significant cardiovascular risk factors the patient needs to undergo a sleep study at this time. 12/31/2022 the patient is here for a pulmonary follow-up visit. Overall the patient has been doing well. She does use the Breo daily and also the Incruse daily. She has a rescue inhaler, Xopenex but she does not required it often. Typically less than twice a week. She continues to have daytime drowsiness. She did have a home sleep study more than a year ago at home. Although unfortunately it was not adequate and she had repeated. However she was never called. She continues to have some daytime drowsiness with an elevated Richmond score of 10/24. Therefore with her underlying cardiovascular history will be important to repeat the study. Will have her undergo a repeat home sleep study this time. Otherwise patient is without any other complaints will follow-up in 3 months if her sleep study is abnormal although frost 1 year. 08/29/2024 the patient is here for a pulmonary follow-up visit. Overall she is doing very well on the Breo and the Incruse inhalers. The been affecting beneficial. She has not had to use her rescue inhaler often. Denies any recent sickness. She needs to get her flu vaccine. She got up the pharmacy and also get the RSV. No recent imaging to review. She continues to have daytime drowsiness. Her Richmond score is elevated 10/24. She is still trying to arrange her home sleep study. When she has a done she can always call so we can review the results. Otherwise will follow-up in 6-8 months. She has issues with elevations in her blood sugars. Her hemoglobin A1c is significantly elevated. The patient has been struggling with this. She would benefit from an Endocrinology evaluation. Will facilitate this process at this time. 05/01/2025 the patient is here for pulmonary follow-up visit. Overall the patient has been doing well. She continues on the Breo and the Incruse. She does need her rescue inhaler. Sometimes she does have episodes of chest tightness and she is missing her inhaler. Will make sure she has 1 available. The patient has been sleeping better. Denies any significant daytime drowsiness we can hold off on any sleep studies at this time. I did review her data. No recent x-rays at this time. Will have her get an x-ray just to have 1 at baseline. In addition to that in a year when she can returns she can have some pulmonary function studies to assess her lung capacity them. If she has any issues between now and her next appointment in a year she can always call for further recommendations. [facility] Medical History (Reviewed 03/19/25 @ 11:05 by Margarita Nash [facility]) CRISTINA (obstructive sleep apnea) Diabetes HTN (hypertension) CAD (coronary artery disease) Asthma Surgical History Hx of CABG Hx of heart surgery Hx of endoscopy History of colonoscopy Family History Father Hx of diabetes insipidus Mother No problems noted. Other Asthma Social History Household Members: None Household Members Other:: alone Alcohol intake: never Patient Tobacco Use Status: Never used Tobacco Review of Systems Const Reports difficulty sleeping and Denies night sweats ENT Denies change in voice, Denies lip swelling, Denies mouth pain, Reports nasal congestion, Reports nasal discharge and Denies tongue swelling Card Denies chest pain Resp Reports cough GI Denies abdominal pain Musc Denies no additional complaints Neuro Denies Neuro-related abnormal movements Psych Denies no additional complaints Mitchell/Lymph Denies easy bleeding and Denies lymphadenopathy Aller/Immun Denies lip swelling and Denies tongue swelling Physical Exam Vital Signs: Last Vital Signs Pulse 97 05/01/25 11:31 BP 140/60 H 05/01/25 11:31 Pulse Ox 98 05/01/25 11:31 Oxygen Delivery Method Room Air 05/01/25 11:31 BMI result Body Mass Index 27.4 Const General: alert Neck Neck: Yes normal visual inspection, Yes full ROM and Yes no lymphadenopathy Chest Chest palpation & inspection: normal inspection of the chest Resp Effort & Inspection: normal respiratory effort Auscultation: diminished lung sounds Cardio Rate: regular rate Rhythm: regular rhythm Heart sounds: S1 normal heart sound present and S2 normal heart sound present GI Palpation (GI): Soft to palpation and nontender Auscultation: normal bowel sounds Skin General skin exam: rashes and/or lesions noted Assessment & Plan Assessment & Plan (1) CRISTINA (obstructive sleep apnea): Code(s): G47.33 - Obstructive sleep apnea (adult) (pediatric) Category: Medical (2) Asthma: Code(s): J45.909 - Unspecified asthma, uncomplicated Category: Medical Qualifiers: Asthma complication type: uncomplicated Asthma persistence: persistent Asthma severity: moderate Qualified Code(s): J45.40 - Moderate persistent asthma, uncomplicated Plan positional sleep therapy continue Breo continue Incruse short-acting beta agonist/Xopenex as needed CXR follow-up in 12 months Orders: Orders XR chest 2V Today J45.40 - Moderate persistent asthma, uncomplicated Medications: Changed From levalbuterol tartrate 45 mcg/actuation 2 puffs PO Q6H 30 days PRN 15 grams 11RF shortness of breath or wheezing J45.909 - Unspecified asthma, uncomplicated To levalbuterol tartrate 45 mcg/actuation 2 puffs inhalation Q6H PRN 15 grams 11RF shortness of breath or wheezing 30 days J45.909 - Unspecified asthma, uncomplicated Refilled fluticasone furoate-vilanterol 200-25 mcg/dose (Breo Ellipta) 1 inh inhalation DAILY 60 ea 11RF 30 days J45.909 - Unspecified asthma, uncomplicated umeclidinium 62.5 mcg/actuation 1 inh PO DAILY 30 ea 11RF 30 days J45.909 - Unspecified asthma, uncomplicated Coding Level of Care Code Est Pt Level 4 (02939) Diagnoses CRISTINA (obstructive sleep apnea) G47.33 Moderate persistent asthma without complication J45.40 Asthma complication type: uncomplicated Asthma persistence: persistent Asthma severity: moderate Time Spent (min) 16
--- OUTSIDE RECORDS SUMMARY | 2025-05-01 12:28 | XMS_ITS | Clinical Summary ---
[facility] Organization [facility] Address [address] [place] [address] Care Team Providers Care Watch Train Inspector Name Role Phone Unavailable Primary Care Provider [...] Vaccines (1 of 2) 2005 COVID-19 Vaccine (1 - 2023-2 5 season) 2024 Depression Screening 10/03/2024 Influenza Vaccine (#1) 2025 RSV Immunization Adult Patie nts (1 [...]
--- OUTSIDE RECORDS SUMMARY | 2025-05-01 12:28 | XMS_ITS | Clinical Summary ---
Author Organization [employer] Address [address] [facility] [address] [place] [address] Care Team Providers Care Central Supply Technician Supervisor Name Role Phone Vivek Garland MD Primary Care Prov ider Allergies No known active allergies Medications Fluticasone Furoate-Vilantero l (Breo Ellipta) 200-25 MCG/ACT aerosol powderIndications :Mixed simple and mucopurulent chronic bronchitis (CMS/HCC) INHALE ONE PUFF ONCE DAILY, at the same time each day 60 each 3 11/23/19 23 Active Incruse Ellipta 62.5 MCG/ACT aerosol powder Inhale 1 puff once daily at the same time each day 08/15/20 23 Active triamcinolone (Kenalog) 0.1 % cream Apply topically if needed in the morning and at bedtime (pain and swelling). 30 g 5 06/06/20 24 Active Multiple Vitamin (Multivitamin) tablet TAKE ONE TABLET EVERY MORNING 90 tablet 3 07/10/20 24 Active FeroSul 325 (65 Fe) MG tabletIndications :Iron deficiency anemia due to chronic blood loss TAKE ONE TABLET EVERY MORNING 90 tablet 3 07/10/20 24 Active TechLite Plus Pen Nerinx 32G X 4 MM misc USE FOUR TIMES DAILY 200 each 3 08/24/20 24 Active Aspirin Low Dose 81 MG chewable tablet CHEW ONE TABLET EVERY MORNING 30 tablet 11 09/12/20 24 Active NovoLOG FLEXPEN 100 UNIT/ML pen INJECT 2 to 14 UNITS SUBCUTANEOUSLY THREE TIMES DAILY BEFORE MEALS 15 mL 5 10/08/19 25 Active Ozempic, 0.25 or 0.5 MG/DOSE, 2 MG/3ML solution pen-injector 10/26/19 Active Toujeo Max SoloStar 300 UNIT/ML injection 50 units daily 10/26/19 25 Active glipiZIDE XL (Glucotrol XL) 5 MG 24 hr tablet Take 5 mg by mouth Once per day. 10/26/19 25 Active TRUEplus Glucose 4 g chewable tablet chew 4 tablets every 15 minutes As Needed for hypoglycemia; until symptoms of low blood sugar are controlled 10/26/19 25 Active Continuous Glucose Sensor (Dexcom G7 Sensor) [facility] Active lisinopril 40 MG tabletIndications :Primary hypertension TAKE ONE TABLET EVERY MORNING 90 tablet 3 12/14/19 25 Active Jardiance 25 MGIndications:Typ e 2 diabetes mellitus without complication, without long-term current use of insulin ([facility]) TAKE ONE TABLET EVERY MORNING 90 tablet 1 01/03/20 25 Active FREESTYLE LITE test stripIndications: Type 2 diabetes mellitus without complications ([facility]) TEST BLOOD SUGAR THREE TIMES DAILY 100 strip 5 01/10/20 25 Active Easy Touch Lancets 33G/Twist miscIndications:T ype 2 diabetes mellitus without complications ([facility]) TEST BLOOD SUGAR THREE TIMES DAILY 100 each 11 03/15/20 25 Active econazole nitrate 1 % creamIndications: Type 2 diabetes mellitus with diabetic peripheral angiopathy without gangrene, with long-term current use of insulin ([facility]) Apply topically Once per day. 15 g 03/18/20 25 026 Active Blood Glucose Monitoring Suppl (FreeStyle [place] Lite) w/Device kitIndications:Ty pe 2 diabetes mellitus with diabetic peripheral angiopathy without gangrene, with long-term current use of insulin ([facility]) Use to test blood sugar 2 times daily 1 kit 03/18/20 25 Active atorvastatin (Lipitor) 80 MG tablet Take 1 tablet (80 mg) by mouth Once per day. 90 tablet 3 03/28/20 25 026 Active Active Problems Problem Noted Date Diagnosed Date Left foot pain 01/01/2025 Assessment & Plan (01/01/2025 2:31 PM EDT): No recent hx of trauma, will order xray, told to rest, wear appropiate shoes, take tylenol/use ice as needed Coronary artery disease invo lving akhiok coronary artery of [place] heart without angina pectoris 11/09/2023 Assessment & Plan (01/01/2025 1:34 PM EDT): Denied chest pain, no shortness of breath, no changes will be amde Assessment & Plan (11/09/2023 10:21 AM EST): No reported episode of shortness of breath or chest pain, told to follow up with child and family services specialist, S/P CABG x 3 11/09/2023 Assessment & Plan (06/06/2024 10:03 PM EDT): Patient was discharged from cardiology office due to multiple no show, will place new referral Mixed hyperlipidemia 11/09/2023 Assessment & Plan (03/28/2025 1:29 PM EDT): New labs ordered for guidance, she is not compliant with medical treatment, oriented of importance of medication adherance Assessment & Plan (09/19/2024 10:15 AM EST): [...] use of insulin 11/09/2023 Assessment & Plan (03/28/2025 1:30 PM EDT): Followed by staying machine operator, she is non compliant, refused GLP1 due to side effects, will follow up in 4 months Assessment & Plan (01/01/2025 1:35 PM EDT): Followed at [facility] endocrinology, keep low carb/no [...] ordered Primary hypertension 11/12/2022 Assessment & Plan (03/28/2025 1:29 PM EDT): Controlled today, told to keep low sodium diet and exercise as tolerated, keep bp log, target <130/80 Assessment & Plan (01/01/2025 1:35 PM EDT): [...] diet and exercise as tolerated, follow up child and family services specialist Assessment & Plan (11/12/2022 2:53 PM [...] (01/06/2023 8:47 PM EDT): leida Priest and rafaelair, no changes will be made, target A1c<7.0%, reinforced low carb/no sugar diet and exercise as tolerated Assessment & Plan (11/12/2022 2:55 PM EST): Controlled, no changes will be made, reinforced low carb/sugar diet Foot exam done was unremarkable Eye exam done in 07/2022 Type 2 diabetes mellitus 12/08/202010/2024 Encounters Date Type Department Care Team Description 04/23/2025 Telephone [facility] [address] [place] [address] Vivek Garland MD Referral 03/28/2025 1:00 PM EDT Telemedicine [facility] [address] [place] [address] Vivek Garland MD Primary hypertension (Primary Dx); Mixed hyperlipidemia; Type 2 diabetes mellitus with diabetic peripheral angiopathy without gangrene, with long-term current use of insulin ([facility]) 03/28/2025 Travel 03/22/2025 Orders Only GENERIC EXTERNAL DATA DEPARTMENT Provider, Generic External Data 03/18/2025 9:40 AM EDT Office Visit [facility] [address] [place] [address] Miquel Onofre MD Type 2 diabetes mellitus with diabetic peripheral angiopathy without gangrene, with long-term current use of insulin ([facility]) (Primary Dx); Tinea corporis; Primary hypertension 03/18/2025 Refill [facility] [address] [place] [address] Vivek Garland MD 03/18/2025 Travel 03/15/2025 Telephone [facility] [address] [place] [address] Vivek Garland MD Nurse Triage 03/15/2025 Refill [facility] [address] [place] [address] Kanchan Boyer MD Type 2 diabetes mellitus without complications (CMS/HCC) 03/12/2025 Telephone [facility] [address] [place] [address] Vivek Garland MD New Glucose Monitor 03/12/2025 Telephone [facility] [address] [place] [address] Vivek Garland MD Nurse Triage from Last 3 Months Immunizations Immunization Administration [...] Sign Reading Time Taken Comments Blood Pressure 130/79 03/28/2025 1:26 PM EDT Pulse 92 03/18/2025 9:36 AM EDT Temperature 36.6 C (97.8 F) 03/18/2025 9:36 AM EDT Respiratory Rate 20 03/18/2025 9:36 AM EDT Oxygen Saturation 98% 03/18/2025 9:36 AM EDT Inhaled Oxygen Concentration - - Weight 67.6 kg (149 lb) 03/18/2025 9:36 AM EDT Height 157.5 cm (5' 2 ) 03/18/2025 9:36 AM EDT Body Mass Index 27.25 03/18/2025 9:36 AM EDT Plan of Treatment Health Maintenance Due Date Last Done Comments CT Colonography 1955 Colonoscopy 1955 FIT 1955 Sigmoidoscopy 1955 Diabetes: Foot Exam 1965 COVID-19 Vaccine ( season) 2024 01/31/2021, 01/02/2021 FOBT 11/21/2024 11/21/2023 Influenza Vaccine (#1) 2025 , 09/05/2023, 06/30/2022 Diabetes: Hemoglobin A1C 06/18/2025 025, 12/03/2024, 08/03/2024, Additional history exists Lipid Panel 08/03/2025 08/03/2024, 042 12/2023, 11/12/2022, Additional history exists Diabetes: Urine Protein Screening 08/06/2025 08/06/2024, 05/28/2022, 04/08/2021 Alcohol/Substance Use Screening 01/01/2026 01/01/2025 Depression Screening 01/01/2026 01/01/2025, 01/02/20 25 SDOH Screening 01/01/2026 01/01/2025 Mammogram 01/05/2026 01/06/2024, [...] Aged 60 years or older Completed 09/05/2023 HIB Vaccines Aged Out No longer eligi [...] Author Blood Pressure < 140/90 Blood Pressure 130/79(2024 1:26 PM EDT) No Shruti Sorensen, PharmD Hemoglobin A1c < 7 Result Component 9.8( 9:50 AM EDT) Shruti Valenzuela PharmD Procedures Procedure Name Priority Date/Time Associated Diagnosis Comments GLUCOSE, WHOLE BLOOD Routine 03/22/2025 1:00 PM EDT POCT GLUCOSE Routine 03/18/2025 9:51 AM EDT [...] BILATERAL Routine 01/06/2024 12:00 PM EDT LAB COLOGUARD COLON CANCER SCREEN Routine 11/21/2023 10:22 AM EST Coronary artery disease involving akhiok coronary artery of akhi[place] heart without angina pectoris Colon cancer screening [...] Maintenance Results * (ABNORMAL) Glucose, Whole Blood (03/22/2025 1:00 PM EDT) Glucose, Whole Blood 188(H) 60 - 115 mg/dL [facility] Comment:METER #: [id number] Testing performed in the Endocrinology Department [address] , [address], [facility]. 03/22/2025 1:00 PM EDT 03/22/2025 1:03 PM EDT us Generic External Data Provider LAB BLOOD ORDERAB LES Final Result [facility] [address] [place] [phone] * (ABNORMAL) POCT Glucose (03/18/2025 9:51 AM EDT) Glucose Blood, POC 353(A) 60 - 200 mg/dL QC Media Lot # [id number] Lot# Expiration Date ,025 Comment:RANDOM Blood Capillary blood specimen / Unknown 03/18/2025 9:51 AM EDT us Miquel Onofre MD POINT OF CARE TEST ENTER/ED IT ORDERABLES Final Result * (ABNORMAL) POCT HGB A1C (03/18/2025 9:50 AM EDT) Hemoglobin A1C 9.8(A) 4.0 - 6.0 % QC Media Lot # [id number] Lot# Expiration Date ,027 Blood 03/18/2025 9:50 AM EDT us Miquel Onofre MD POINT OF CARE TEST ENTER/ED IT ORDERABLES Final Result * (ABNORMAL) Albumin, Random Urine W/Creatinine (08/06/2024 11:20 AM EST) Creatinine, Urine 81.49 mg/dL [facility] Microalbumin Urine 31.0 mg/L [facility] Microalbum Creatinine Ratio Ur 38.0(H) <30 ug/mg cr [facility] Comment:Albumin/Creatinine R atio Reference Ranges: Normal: < 30 ug/mg creatinine Microalbuminuria: 30 - 300 ug/mg creatinineClinical Albuminuria: > 300 ug/mg creatinine Urine (Urine, Random) 08/06/2024 11:20 AM EST 08/06/2024 2:23 PM EST Vivek Falcon MD LAB URINE ORDERABL ES Final Result Performing Organization Address [facility] Co de Phone Number [facility] [address] [place] [phone] * (ABNORMAL) Lipid Panel, Standard (08/03/2024 1:16 PM EDT) Triglycerides 159(H) <150 mg/dL [facility] Comment:Desirable Triglyceri de: less than 150 mg/dLBorderline High Triglyceride 150-199 mg/dLHigh Triglyceride: 200-499 mg/dLVery High Triglyceride: greater than or equal to 5OO mg/dL Cholesterol 243(H) <200 mg/dL [facility] Comment:Desirable Cholestero l: less than 200 mg/dLBorderline High Cholesterol: 200-239 mg/dLHigh Cholesterol: greater than 239 mg/dL LDL Cholesterol Calculated 167(H) <100 mg/dL [facility] Comment:Desirable LDL: less than 100 mg/dLNear Optimal/Above Optimal LDL: 110- 129 mg/dLBorderline High LDL: 130-159 mg/dLHigh LDL: 160-189 mg/dLVery High LDL: greater than or equal to 190 mg/dL HDL Cholesterol 45 >40 mg/dL [facility] Comment:Desirable HDL: great er than 40 mg/dL Note: This HDL assay may give artificially low results in patients with liver disease. Blood Venous blood specimen / Unknown 08/03/2024 1:16 PM EDT 08/03/2024 2:13 PM EDT us Vivek Falcon MD LAB BLOOD ORDERABL ES Final Result Performing Organization Address City/[facility]/ZIP Co de Phone Number [facility] [address] [place] [phone] * BI Mammogram Screening Tomosynthesis Bilateral (01/06/2024 12:00 PM EDT) Anatomical Region Laterality Modality Breast Bilateral Mammography 01/06/2024 12:0 0 PM EDT Narrative 01/14/2024 5:29 PM EDT [facility] [address] [place] [address] Mammography Report Signed Patient: Monica Read MR#: [id number] : 1955 Acct:[id number] Age/Sex: 68 / F ADM Date: 01/06/24 Loc: HO.MAMMO Attending Dr: Vivek Falcon MD Ordering Physician: Vivek Garland MD Res ults: 1Negative Date of Service: 01/06/24 Follow Up: 1 Year From Orig inal Mammogram Procedure(s): MM tomosynthesis screening BI Accession Number(s): [id number] cc: iVvek Garland MD EXAMINATION: MM SCREENING DIGITAL BREAST [...] in OV> 01/14/24 1725 DD/ 1200 TD/TT: Licensed Midwife: Procedure Note Donotuseinterpreter, Image - 01/14/2024 [place] [facility] [address] [place] [address] Mammography Report Signed Patient: Monica ReadMR#: [id number] : 5Acct:[id number] Age/Sex: 68 / FADM Date: 01/06/24 Loc: HO.MAMMO Attending Dr: Vivek Falcon MD Ordering Physician: Vivek Garland ults: 1Negative Date of Service: 01/06/24Follow Up: 1 Year From Orig inal Mammogram Procedure(s): MM tomosynthesis screening BI Accession Number(s): [id number] cc: Vivek Garland MD EXAMINATION: MM SCREENING [...] in OV> 01/14/24 1725 DD/ 1200 TD/TT: Licensed Midwife: Vivek Falcon MD [facility] BI PROCEDURES Edited Result - Final * Cologuard?? colon cancer screening (11/21/2023 10:22 AM EST) [facility] Cologuard Result Negative Negative 11/28/19 5:38 PM EST [facility] (CLIA #:[id number]) Comment: NEGATIVE TEST RESULT. A negative Cologuard result indicates a low likelihood that a colorectal cancer (CRC) or advanced adenoma (adenomatous polyps with more advanced pre-malignant features) is present. The chance that a person with a negative Cologuard test has a colorectal cancer is less than 1 in 1500 (negative predictive value >99.9%) or has an advanced adenoma is less than 5.3% (negative predictive value 94.7%). These data are based on a prospective cross-sectional study of 10,000 individuals at average risk for colorectal cancer who were screened with both Cologuard and colonoscopy. (Carter Burden al, N Engl J Med 2014;370(14):5236-2856) The normal value (reference range) for this assay is negative. COLOGUARD RE-SCREENING RECOMMENDATION: Periodic colorectal cancer screening is an important part of preventive healthcare for asymptomatic individuals at average risk for colorectal cancer. Following a negative Cologuard result, the [place] [employer] Society and U.S. Multi-Society Task Force screening guidelines recommend a Cologuard re-screening interval of 3 years. References: [place] [employer] Guideline for Colorectal Cancer Screening: https://www.cancer.org/cancer/bvflv-mcfndj-qtvsdv/qytumthtj-gxvlemprv-szgtepu/ac s-rec ommendations.html.; Álvaro DK, Dionna CR, Dino SuarezK, Colorectal Cancer Screening: Recommendations for Physicians and Patients from the U.S. Multi-Society Task Force on Colorectal Cancer Screening , Am J Gastroenterology 2017; 112:3279-5660. TEST DESCRIPTION: Composite algorithmic analysis of stool DNA-biomarkers with hemoglobin immunoassay. Quantitative values of individual biomarkers are not [...] (Carter Burden al, N Engl J Med 2014;370(14):5414-3105.) Cologuard may produce a false negative or false positive result (no colorectal cancer or precancerous polyp present at colonoscopy follow up). A negative Cologuard test result does not guarantee the absence of CRC or advanced adenoma (pre-cancer). The current Cologuard screening interval is every 3 years. ([place] [employer] and U.S. Multi-Society Task Force). Cologuard performance data in a 10,000 patient pivotal study using colonoscopy as the reference method can be accessed at the following location: www.bluebird bio.Dinetouch/results. Additional description of the Cologuard test process, warnings and precautions can be found at www.[employer] Medicalrd.com. Stool specimen (specimen) 11/21/2023 10:22 AM EST 11/22/2023 1:57 PM EST Vivek Falcon MD LAB MOLECULAR DIAG NOSTICS ORDERABLES Final Result [facility] (CLIA #:[id number]) [place] [address] [place] [address], * Hepatitis C Antibody with Reflex to HCV, RNA, Quantitative, Real-Time PCR (11/12/2022 11:40 AM EST) Hepatitis C Antibody NON-REACT IRA NON-REACT IRA [employer] [place] [employer] Index 0.03 <1.00 [facility] Comment: HCV antibody was non-reactive. There is no laboratory evidence of HCV infection. In most cases, no further action is required. However, if recent HCV exposure is suspected, a test for HCV RNA (test code 69130) is suggested. For additional information please refer to http://education.Ideedock/faq/QXT84t8 (This link is being provided for informational/ educational purposes only.) Blood Venous blood specimen / Unknown 11/12/2022 11:40 AM EST 11/12/2022 11:41 AM EST Narrative [facility] - 11/17/2022 4:36 PM EST FASTING:YES FASTING: YES Vivek Falcon MD LAB BLOOD ORDERABL ES Final Result [facility] [address], [place] [address] [employer] [place] [employer] [address] [facility], ([address]) [place] [phone] from Last 3 Months or Most Recently Relevant to Health Maintenance Insurance [facility] (O D-SNP) [employer] [id number] Care Teams Central Supply Technician Supervisor Relationship Specialty Start Date End Date Vivek Garland MD [address] [place] [phone] PCP - General Internal Medicine 03/27/20
== END 2025-05-01 11:57 | disposition home or self-care (01) ==
LOC: HO.HPS 11:27
PROVIDERS: PCP Internal Medicine; Visit Provider Hospitalist
DX: G47.33 Obstructive sleep apnea (adult) (pediatric) (principal); J45.40 Moderate persistent asthma, uncomplicated
CPT/HCPCS: 99214

== ENCOUNTER → 2025-05-01 11:26 | Outpatient (BNVA) | payer OTHER, SELFPAY | PROVIDERS: PCP Internal Medicine; Visit Provider Hospitalist | DX: J45.40 Moderate persistent asthma, uncomplicated (principal); E11.9 Type 2 diabetes mellitus without complications | CPT/HCPCS: 99212 ==

== ENCOUNTER 2025-05-22 12:24 | Outpatient (AMB) | payer OTHER, SELFPAY ==
--- NOTE | 2025-05-22 12:46 | MHC.AMDMED ---
Intake Intake Visit Reasons: 60 min Change Management Administrator Required: Yes Change Management Administrator Language: Membership Sales Advisor Name: Curtis Mccormack Accompanied by: Self / Same As Patient Allergies No Known Allergies Allergy (Verified 05/01/25 11:33) PFSH Medical History CRISTINA (obstructive sleep apnea) Diabetes HTN (hypertension) CAD (coronary artery disease) Asthma Surgical History Hx of CABG Hx of heart surgery Hx of endoscopy History of colonoscopy Family History Father Hx of diabetes insipidus Mother No problems noted. 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.4 - terminal operations manager (current) use of insulin Plan: Learning objectives: The patient was provided with verbal and written education on the following topics as outlined below. The patient met all learning objectives and was able to verbalize understanding and provide teach back of education topics discussed . The patient was provided with the opportunity to ask questions and all questions were answered. Patient Assessment Assess patient education level/literacy/barriers, patient's last A1c on 03/22/2025 was 10.1% Patient did not bring meter to today's visit, at last visit patient was instructed to bring Dexcom G7 reader and sensor to set up. Patient did not bring CGM. Patient stated she is interested in restarting CGM and agreed to bring sensor and reader to next appointment. What is Diabetes? Pathophysiology How the body produces and uses insulin Identify type of DM Risk factors Signs of Diabetes Brief overview of Diabetes Management Monitoring blood sugar Following a meal plan Regular exercise Maintaining a healthy weight Taking medication as needed Members of the care team (PCP, RN, MA, RD, CDE, compliance engineer) Blood glucose monitoring When/how often to test Target blood sugar ranges Introduction to Nutrition Importance of healthy diet in managing DM Diet is personalized to individual preference Review patient?s regular diet/food preferences Who prepares meals/does food shopping/ Dining out?/ Barriers? How diet effects glucose Eating 3 balanced meals a day with small, healthy snacks between meals Review food groups Carbohydrates: What is a carbohydrate/Which food/food groups are considered carbohydrates Effect of carbohydrates on blood glucose Portion sizes Reading food labels Basic carb counting (if applicable per nursing assessment) Plate method Meal planning Recommendations: Follow plate method, consistent carbs and read nutritional labels. Smart Goal: Patient will identify foods in current meal plan contain carbohydrate Educational Materials: The patient was provided with the following written educational materials: Planning Healthy Meals Handout Patient Response to instructions: Comprehension of Instructions: Fair Readiness to make changes: Contemplation How confident they feel about making changes: Poor Portions of this note were created using voice recognition software, please excuse any words or phrases that may have been misinterpreted. Patient Instructions: Incluir actividad diaria regular. ADA recomienda 30 minutos de ejercicio 5 d?as a la semana. P?rdida de peso, hable con el PCP o el cardi?logo antes de comenzar un nuevo plan. Mida el nivel de az?car en la saad seg?n las indicaciones; Ayuno y comida m?s lulu de 2hpp. Observe las tendencias en los resultados. Utilice los resultados y eval?e c?mo los alimentos, la actividad f?gurpreet y los medicamentos afectan los resultados de az?car en la saad. Lleve el gluc?metro o CGM a la pr?xima visita. Conocer los medicamentos para la diabetes, alan acci?n, los efectos secundarios, la eficacia, la toxicidad, la dosis prescrita, el momento y la frecuencia de administraci?n apropiados, el efecto de las dosis olvidadas y retrasadas y las instrucciones de almacenamiento, viaje y seguridad. T?cnicas de resoluci?n de problemas para el seguimiento de episodios de hipo/hiperglucemia y tratamientos. Reducir los comportamientos de reducci?n de riesgos, dejar de fumar, ex?menes regulares de ojos, pies y dentales. Coding Level of Care Code Est Pt Level 1 (63454) Diagnoses Uncontrolled type 2 diabetes mellitus with hyperglycemia, with long-term current use of insulin E11.65; Z79.4
--- OUTSIDE RECORDS SUMMARY | 2025-05-22 13:22 | XMS_ITS | Clinical Summary ---
Author Organization [employer] Address [address] [facility] [address] [place] [address] Care Team Providers Care Cattle Tester Name Role Phone Vivek Garland MD Primary [...] 3 07/10/20 24 Active TechLite Plus Pen [place] 32G X 4 MM misc USE FOUR [...] Active Continuous Glucose Sensor (Dexcom G7 Sensor) [facility] Active lisinopril 40 MG tabletIndications :Primary hypertension TAKE ONE TABLET EVERY MORNING 90 tablet 3 12/14/19 25 Active Jardiance 25 MGIndications:Typ e 2 diabetes mellitus without complication, without long-term current use of insulin ([facility]) TAKE ONE TABLET EVERY MORNING 90 tablet 1 01/03/20 25 Active FREESTYLE LITE test stripIndications: Type 2 diabetes mellitus without complications ([facility]) TEST BLOOD SUGAR THREE TIMES DAILY 100 strip 5 01/10/20 25 Active Easy Touch Lancets 33G/Twist miscIndications:T ype 2 diabetes mellitus without complications ([facility]) TEST BLOOD SUGAR THREE TIMES DAILY 100 each 11 03/15/20 25 Active econazole nitrate 1 % creamIndications: Type 2 diabetes mellitus with diabetic peripheral angiopathy without gangrene, with long-term current use of insulin ([facility]) Apply topically Once per day. 15 g 03/18/20 25 026 Active Blood Glucose Monitoring Suppl (FreeStyle [place] Lite) w/Device kitIndications:Ty pe 2 diabetes mellitus with diabetic peripheral angiopathy without gangrene, with long-term current use of insulin ([facility]) Use to test blood sugar 2 [...] as needed Coronary artery disease invo lving chipewwa coronary artery of chipewwa heart without angina pectoris 11/09/2023 Assessment & Plan (01/01/2025 1:34 PM EDT): Denied chest pain, no shortness of breath, no changes will be amde Assessment & Plan (11/09/2023 10:21 AM EST): No reported episode of shortness of breath or chest pain, told to follow up with traffic engineering technician, S/P CABG x 3 11/09/2023 Assessment & [...] Plan (03/28/2025 1:30 PM EDT): Followed by behavioral health assistant, she is non compliant, refused GLP1 due to side effects, will follow up in 4 months Assessment & Plan (01/01/2025 1:35 PM EDT): Followed at [facility] endocrinology, keep low carb/no sugar diet, exercise [...] diet and exercise as tolerated, follow up traffic engineering technician Assessment & Plan (11/12/2022 2:53 PM EST): [...] Type Department Care Team Description 04/23/[address] [facility] [address] [place] [address] Vivek Garland MD Referral 03/28/2025 1:00 PM EDT Telemedicine [facility] [address] [place] [address] Vivek Garland MD Primary hypertension (Primary Dx); Mixed hyperlipidemia; Type 2 diabetes mellitus with diabetic peripheral angiopathy without gangrene, with long-term current use of insulin ([facility]) 03/28/2025 Travel 03/22/2025 Orders Only GENERIC EXTERNAL DATA DEPARTMENT Provider, Generic External Data 03/18/2025 9:40 AM EDT Office Visit [facility] [address] [place] [address] Miquel Onofre MD Type 2 diabetes mellitus with diabetic peripheral angiopathy without gangrene, with long-term current use of insulin (CMS/[facility]) (Primary Dx); Tinea corporis; Primary hypertension 03/18/2025 Refill [facility] [address] [place] [address] Vivek Garland MD 03/18/2025 Travel 03/15/2025 Telephone [facility] [address] [place] [address] Vivek Garland MD Nurse Triage 03/15/[address] [facility] [address] [place] [address] Kanchan Boyer MD Type 2 diabetes mellitus without complications (CMS/HCC) 03/12/[address] [facility] [address] [place] [address] Vivek Garland MD New Glucose Monitor 03/12/[address] [facility] [address] [place] [address] Vivek Garland MD Nurse Triage from Last [...] COVID-19 Vaccine ( season) 2024 01/31/2021, 01/02/2021 Influenza Vaccine (#1) 2025 , 09/05/2023, 06/30/2022 [...] 10:22 AM EST Coronary artery disease involving chipewwa coronary artery of chipewwa heart without angina pectoris Colon cancer screening [...] Whole Blood 188(H) 60 - 115 mg/dL [facility] Comment:METER #: [id number] Testing performed in the Endocrinology Department [address] , [address], [facility]. 03/22/2025 1:00 PM EDT 03/22/2025 1:03 PM EDT us Generic External Data Provider LAB BLOOD ORDERAB LES Final Result [facility] [address] [place] [phone] * (ABNORMAL) POCT Glucose (03/18/2025 9:51 AM EDT) Glucose Blood, POC 353(A) 60 - 200 mg/dL QC Media Lot # [id number] Lot# Expiration Date [id number] Comment:RANDOM Blood Capillary blood specimen / Unknown 03/18/2025 9:51 AM EDT us Miquel Onofre MD POINT OF CARE TEST ENTER/ED IT ORDERABLES Final Result * (ABNORMAL) POCT HGB A1C (03/18/2025 9:50 AM EDT) Hemoglobin A1C 9.8(A) 4.0 - 6.0 % QC Media Lot # [id number] Lot# Expiration Date [id number] Blood 03/18/2025 9:50 AM EDT us Miquel Onofre MD POINT OF CARE TEST ENTER/ED IT ORDERABLES Final Result * (ABNORMAL) Albumin, Random Urine W/Creatinine (08/06/2024 11:20 AM EST) Creatinine, Urine 81.49 mg/dL [facility] Microalbumin Urine 31.0 mg/L [facility] Microalbum Creatinine Ratio Ur 38.0(H) <30 ug/mg cr [facility] Comment:Albumin/Creatinine R atio Reference Ranges: Normal: < 30 ug/mg creatinine Microalbuminuria: 30 - 300 ug/mg creatinineClinical Albuminuria: > 300 ug/mg creatinine Urine (Urine, Random) 08/06/2024 11:20 AM EST 08/06/2024 2:23 PM EST us Vivek Falcon MD LAB URINE ORDERABL ES Final Result Performing Organization Address [facility] Co de Phone Number [facility] [address] [place] [phone] * (ABNORMAL) Lipid Panel, Standard (08/03/2024 1:16 PM EDT) Triglycerides 159(H) <150 mg/dL [facility] Comment:Desirable Triglyceri de: less than 150 mg/dLBorderline High Triglyceride 150-199 mg/dLHigh Triglyceride: 200-499 mg/dLVery High Triglyceride: greater than or equal to 5OO mg/dL Cholesterol 243(H) <200 mg/dL [facility] Comment:Desirable Cholestero l: less than 200 mg/dLBorderline High Cholesterol: 200-239 mg/dLHigh Cholesterol: greater than 239 mg/dL LDL Cholesterol Calculated 167(H) <100 mg/dL [facility] Comment:Desirable LDL: less than 100 mg/dLNear Optimal/Above Optimal LDL: 110- 129 mg/dLBorderline High LDL: 130-159 mg/dLHigh LDL: 160-189 mg/dLVery High LDL: greater than or equal to 190 mg/dL HDL Cholesterol 45 >40 mg/dL [facility] Comment:Desirable HDL: great er than 40 mg/dL Note: This HDL assay may give artificially low results in patients with liver disease. Blood Venous blood specimen / Unknown 08/03/2024 1:16 PM EDT 08/03/2024 2:13 PM EDT us Vivek Falcon MD LAB BLOOD ORDERABL ES Final Result Performing Organization Address [facility]/ZIP Co de Phone Number [facility] [address] [place] [phone] * BI Mammogram Screening Tomosynthesis Bilateral (01/06/2024 12:00 PM EDT) Anatomical Region Laterality Modality Breast Bilateral Mammography 01/06/2024 12:0 0 PM EDT Narrative 01/14/2024 5:29 PM EDT [address] [place] [address] Mammography Report Signed Patient: Monica Read MR#: [id number] : 1955 Acct:[id number] Age/Sex: 68 / F ADM Date: 01/06/24 Loc: [facility]OMIST[facility] Attending Dr: Vivek Falcon MD Ordering Physician: Vivek Garland MD Res ults: 1Negative Date of Service: 01/06/24 Follow Up: 1 Year From Orig inal Mammogram Procedure(s): MM tomosynthesis screening BI Accession Number(s): [id number] cc: Vivek Garland MD EXAMINATION: MM SCREENING [...] in OV> 01/14/24 1725 DD/ 1200 TD/TT: Supervisor Scrap Preparation: Procedure Note Donotuseinterpreter, Image - 01/14/2024 [place] [facility] [address] [place] [address] Mammography Report Signed Patient: Monica ReadMR#: [id number] : 5Acct:[id number] Age/Sex: 68 / FADM Date: 01/06/24 Loc: HO.MAMMO Attending Dr: Vivek Falcon MD Ordering Physician: Vivek Garland ults: 1Negative Date of Service: 01/06/24Follow Up: 1 Year From Orig inal Mammogram Procedure(s): MM tomosynthesis screening BI Accession Number(s): [id number] cc: Vivek Garland MD EXAMINATION: MM SCREENING [...] in OV> 01/14/24 1725 DD/ 1200 TD/TT: Supervisor Scrap Preparation: Vivek Falcon MD IM BI PROCEDURES Edited Result - Final * Cologuard?? colon cancer screening (11/21/2023 10:22 AM EST) [facility] Cologuard Result Negative Negative 11/28/19 24 5:38 PM EST [facility] (CLIA #:[id number]) Comment: NEGATIVE TEST RESULT. A negative Cologuard [...] (Carter Burden al, N Engl J Med 2014;370(14):5538-4806) The normal value (reference range) for this assay is negative. COLOGUARD RE-SCREENING RECOMMENDATION: Periodic colorectal cancer screening is an important part of preventive healthcare for asymptomatic individuals at average risk for colorectal cancer. Following a negative Cologuard result, the [place] [employer] and U.S. Multi-Society Task Force screening guidelines recommend a Cologuard re-screening interval of 3 years. References: [place] [employer] Guideline for Colorectal Cancer Screening: https://www.cancer.org/cancer/poeko-ujvskg-gswtaw/xqnmetppv-ndioqqlnt-hycvrfw/ac s-rec ommendations.html.; Álvaro DK, Dionna CR, Dino SuarezK, Colorectal Cancer Screening: Recommendations for Physicians and Patients from the U.S. Multi-Society Task Force on Colorectal Cancer Screening , Am J Gastroenterology 2017; 112:4668-9847. TEST DESCRIPTION: Composite algorithmic analysis of stool [...] (Carter Burden al, N Engl J Med 2014;370(14):7460-6125.) Cologuard may produce a false negative or false positive result (no colorectal cancer or precancerous polyp present at colonoscopy follow up). A negative Cologuard test result does not guarantee the absence of CRC or advanced adenoma (pre-cancer). The current Cologuard screening interval is every 3 years. ([place] [employer] and U.S. Multi-Society Task Force). Cologuard performance data in a 10,000 patient pivotal study using colonoscopy as the reference method can be accessed at the following location: www.Tempronics.OpenDoors.su/results. Additional description of the Cologuard test process, warnings and precautions can be found at www.fintonicogBlue Water Technologiesrd.OpenDoors.su. Stool specimen (specimen) 11/21/2023 10:22 AM EST 11/22/2023 1:57 PM EST Vivek Falcon MD LAB MOLECULAR DIAG NOSTICS ORDERABLES Final Result [facility] (CLIA #:[id number]) [address] [place] [address], * Hepatitis C Antibody with Reflex to HCV, RNA, Quantitative, Real-Time PCR (11/12/2022 11:40 AM EST) Hepatitis C Antibody NON-REACT IRA NON-REACT IRA [employer] [place] Bactest Index 0.03 <1.00 [facility] [place] [facility] Comment: HCV antibody was non-reactive. There is no laboratory evidence of HCV infection. In most cases, no further action is required. However, if recent HCV exposure is suspected, a test for HCV RNA (test code 72508) is suggested. For additional information please refer to http://Mofang.Ecometrica/faq/IDD36m7 (This link is being provided for informational/ educational purposes only.) Blood Venous blood specimen / Unknown 11/12/2022 11:40 AM EST 11/12/2022 11:41 AM EST Narrative [facility] - 11/17/2022 4:36 PM EST FASTING:YES FASTING: YES Vivek Falcon MD LAB BLOOD ORDERABL ES Final Result [facility] [address], [place] [address] [employer] [place] [facility] [address] [facility], ([address]) [place] [phone] from Last 3 Months or Most Recently Relevant to Health Maintenance Insurance [facility] [employer] (O D-SNP) [employer] [id number] Care Teams Cattle Tester Relationship Specialty Start Date End Date Vivek Garland MD [address] [place], [place] [phone] [place] [address] PCP - General Internal Medicine 03/27/20
--- OUTSIDE RECORDS SUMMARY | 2025-05-22 13:22 | XMS_ITS | Clinical Summary ---
Author Organization [facility] Address [address] [place] [address] Care Team Providers Care Production Superintendent Hydro Name Role Phone Unavailable Primary Care Provider [...]
== END 2025-05-22 12:49 | disposition home or self-care (01) ==
LOC: HO.ENCR 12:25
PROVIDERS: PCP Internal Medicine; Visit Provider Registered Nurse Diabetes Educator
DX: E11.65 Type 2 diabetes mellitus with hyperglycemia (principal); Z79.4 Long term (current) use of insulin

== ENCOUNTER → 2025-05-22 12:24 | Outpatient (BNVA) | payer OTHER, SELFPAY | PROVIDERS: PCP Internal Medicine; Visit Provider Registered Nurse Diabetes Educator | DX: E11.65 Type 2 diabetes mellitus with hyperglycemia (principal); Z79.4 Long term (current) use of insulin | CPT/HCPCS: 99211 ==

== ENCOUNTER 2025-05-28 09:37 | Outpatient (REF) | payer OTHER, SELFPAY ==
--- OUTSIDE RECORDS SUMMARY | 2025-05-28 10:14 | XMS_ITS | Encounter Summary ---
Author Organization [employer] [facility] Address [address] [facility] [address] [place] [address] Care Team Providers Care Clamper Name Role Phone Vivek Garland MD Primary Care Prov ider Encounter Details Date Type Department Care Team ([facility] st Contact Info) Description 03/08/2023 Orders Only [facility] [address], [place] [phone] Rosanne Roy LPN Social History Tobacco Use [...] as of this encounter Plan of Treatment Not on file documented as of this encounter Visit Diagnoses Not on filedocumented in this encounter Additional Health Concerns Assessment Noted Time PHQ-9 Depression Total Score: 0 12/29/19 23 1:07 PM EDT documented as of this encounter Care Teams Clamper Relationship Specialty Start Date End Date Vivek Garland MD [address] [place] [address] PCP - General Internal Medicine 03/27/20 documented as of this encounter
--- OUTSIDE RECORDS SUMMARY | 2025-05-28 10:14 | XMS_ITS | Clinical Summary ---
Author Organization [employer] Address [address] [facility] 7t [place] [address] Care Team Providers Care Packager Head Name Role Phone Vivek Garland MD Primary [...] 3 07/10/20 24 Active TechLite Plus Pen [place] 32G X 4 MM misc USE FOUR [...] Active Continuous Glucose Sensor (Dexcom G7 Sensor) [facility] Active lisinopril 40 MG tabletIndications :Primary hypertension TAKE ONE TABLET EVERY MORNING 90 tablet 3 12/14/19 25 Active Jardiance 25 MGIndications:Typ e 2 diabetes mellitus without complication, without long-term current use of insulin ([facility]) TAKE ONE TABLET EVERY MORNING 90 tablet 1 01/03/20 25 Active FREESTYLE LITE test stripIndications: Type 2 diabetes mellitus without complications ([facility]) TEST BLOOD SUGAR THREE TIMES DAILY 100 strip 5 01/10/20 25 Active Easy Touch Lancets 33G/Twist miscIndications:T ype 2 diabetes mellitus without complications ([facility]) TEST BLOOD SUGAR THREE TIMES DAILY 100 each 11 03/15/20 25 Active econazole nitrate 1 % creamIndications: Type 2 diabetes mellitus with diabetic peripheral angiopathy without gangrene, with long-term current use of insulin ([facility]) Apply topically Once per day. 15 g 03/18/20 25 026 Active Blood Glucose Monitoring Suppl (FreeStyle Alliance Lite) w/Device kitIndications:Ty pe 2 diabetes mellitus with diabetic peripheral angiopathy without gangrene, with long-term current use of insulin ([facility]) Use to test blood sugar 2 [...] as needed Coronary artery disease invo lving [place] coronary artery of [place] heart without angina pectoris 11/09/2023 Assessment & Plan (01/01/2025 1:34 PM EDT): Denied chest pain, no shortness of breath, no changes will be amde Assessment & Plan (11/09/2023 10:21 AM EST): No reported episode of shortness of breath or chest pain, told to follow up with perinatal technician, S/P CABG x 3 11/09/2023 Assessment [...] Plan (03/28/2025 1:30 PM EDT): Followed by cost analyst, she is non compliant, refused GLP1 due to side effects, will follow up in 4 months Assessment & Plan (01/01/2025 1:35 PM EDT): Followed at [facility] [place]ology, keep low carb/no [...] diet and exercise as tolerated, follow up perinatal technician Assessment & Plan (11/12/2022 2:53 PM [...] Type Department Care Team Description 04/23/2025 Telephone [facility] [address] [place] [address] Vivek Garland MD Referral 03/28/2025 1:00 PM EDT Telemedicine [facility] [address] [place] [address] Vivek Garland MD Primary hypertension (Primary Dx); Mixed hyperlipidemia; Type 2 diabetes mellitus with diabetic peripheral angiopathy without gangrene, with long-term current use of insulin ([facility]) 03/28/2025 Travel 03/22/2025 Orders Only GENERIC EXTERNAL DATA DEPARTMENT Provider, Generic External Data 03/18/2025 9:40 AM EDT Office Visit [facility] [address] [place] [address] Miquel Onofre MD Type 2 diabetes mellitus with diabetic peripheral angiopathy without gangrene, with long-term current use of insulin ([facility]) (Primary Dx); Tinea corporis; Primary hypertension 03/18/2025 Refill [facility] [address] [place] [address] Vivek Garland MD 03/18/2025 Travel 03/15/2025 Telephone [facility] [address] [place] [address] Vivek Garland MD Nurse Triage 03/15/2025 Refill [facility] [address] [place] [address] Kanchan Boyer MD Type 2 diabetes mellitus without complications (CMS/HCC) 03/12/2025 Telephone [facility] [address] [place] [address] Vivek Garland MD New Glucose Monitor 03/12/2025 Telephone [facility] [address] [place] [address] Vivek Garland MD Nurse Triage from Last [...] 10:22 AM EST Coronary artery disease involving [place] coronary artery of [place] heart without angina pectoris Colon cancer screening [...] Whole Blood 188(H) 60 - 115 mg/dL [facility] Comment:METER #: [id number] Testing performed in the Endocrinology Department [address] , [address], [facility]. 03/22/2025 1:00 PM EDT 03/22/2025 1:03 PM EDT us Generic External Data Provider LAB BLOOD ORDERAB LES Final Result [facility] [address] [place] [phone] * (ABNORMAL) POCT Glucose (03/18/2025 9:51 [...] 11:20 AM EST) Creatinine, Urine 81.49 mg/dL [facility] Microalbumin Urine 31.0 mg/L [facility] Microalbum Creatinine Ratio Ur 38.0(H) <30 ug/mg cr [facility] Comment:Albumin/Creatinine R atio Reference Ranges: Normal: < 30 ug/mg creatinine Microalbuminuria: 30 - 300 ug/mg creatinineClinical Albuminuria: > 300 ug/mg creatinine Urine (Urine, Random) 08/06/2024 11:20 AM EST 08/06/2024 2:23 PM EST us Vivek Falcon MD LAB URINE ORDERABL ES Final Result Performing Organization Address [facility] Co de Phone Number [facility] [address] [place] [phone] * (ABNORMAL) Lipid Panel, Standard (08/03/2024 1:16 PM EDT) Triglycerides 159(H) <150 mg/dL [facility] Comment:Desirable Triglyceri de: less than 150 mg/dLBorderline High Triglyceride 150-199 mg/dLHigh Triglyceride: 200-499 mg/dLVery High Triglyceride: greater than or equal to 5OO mg/dL Cholesterol 243(H) <200 mg/dL [facility] Comment:Desirable Cholestero l: less than 200 mg/dLBorderline High Cholesterol: 200-239 mg/dLHigh Cholesterol: greater than 239 mg/dL LDL Cholesterol Calculated 167(H) <100 mg/dL [facility] Comment:Desirable LDL: less than 100 mg/dLNear Optimal/Above Optimal LDL: 110- 129 mg/dLBorderline High LDL: 130-159 mg/dLHigh LDL: 160-189 mg/dLVery High LDL: greater than or equal to 190 mg/dL HDL Cholesterol 45 >40 mg/dL [facility] Comment:Desirable HDL: great er than 40 mg/dL Note: This HDL assay may give artificially low results in patients with liver disease. Blood Venous blood specimen / Unknown 08/03/2024 1:16 PM EDT 08/03/2024 2:13 PM EDT us Vivek Falcon MD LAB BLOOD ORDERABL ES Final Result Performing Organization Address [facility]/ZIP Co de Phone Number [facility] [address] [place] [phone] * BI Mammogram Screening Tomosynthesis Bilateral (01/06/2024 12:00 PM EDT) Anatomical Region Laterality Modality Breast Bilateral Mammography 01/06/2024 12:0 0 PM EDT Narrative 01/14/2024 5:29 PM EDT [address] [place] [address] Mammography Report Signed Patient: Monica Read MR#: [id number] : 1955 Acct:[id number] Age/Sex: 68 / F ADM Date: 01/06/24 Loc: HOMISTY Attending Dr: Vivek Falcon MD Ordering Physician: Vivek Garland MD Res ults: 1Negative Date of Service: 01/06/24 Follow Up: 1 Year From Orig inal Mammogram Procedure(s): MM tomosynthesis screening BI Accession Number(s): [id number] cc: Vivek Garland MD EXAMINATION: MM SCREENING [...] in OV> 01/14/24 1725 DD/ 1200 TD/TT: Flight Test Supervisor: Procedure Note Donotuseinterpreter, Image - 01/14/2024 [place] [facility] [address] [place] [address] Mammography Report Signed Patient: Monica ReadMR#: [id number] : 5Acct:[id number] Age/Sex: 68 / FADM Date: 01/06/24 Loc: HO.MAMMO Attending Dr: Vivek Falcon MD Ordering Physician: Vivek Garland ults: 1Negative Date of Service: 01/06/24Follow Up: 1 Year From Orig inal Mammogram Procedure(s): MM tomosynthesis screening BI Accession Number(s): [id number] cc: Vivek Garland MD EXAMINATION: MM SCREENING [...] in OV> 01/14/24 1725 DD/ 1200 TD/TT: Flight Test Supervisor: Vivek Falcon MD IM BI PROCEDURES Edited Result - Final * Cologuard?? colon cancer screening (11/21/2023 10:22 AM EST) [facility] Cologuard Result Negative Negative 11/28/19 24 5:38 PM EST [facility] (CLIA #:[id number]) Comment: NEGATIVE TEST RESULT. A negative Cologuard [...] (Carter Burden al, N Engl J Med 2014;370(14):9740-1682) The normal value (reference range) for this assay is negative. COLOGUARD RE-SCREENING RECOMMENDATION: Periodic colorectal cancer screening is an important part of preventive healthcare for asymptomatic individuals at average risk for colorectal cancer. Following a negative Cologuard result, the [place] [employer] Society and U.S. Multi-Society Task Force screening guidelines recommend a Cologuard re-screening interval of 3 years. References: [place] [employer] Guideline for Colorectal Cancer Screening: https://www.cancer.org/cancer/lllcy-wycfgq-rhkalv/kdczujqdm-ybdiefxzu-lqeunxk/ac s-rec ommendations.html.; Álvaro DK, Dionna CR, Dino SuarezK, Colorectal Cancer Screening: Recommendations for Physicians and Patients from the U.S. Multi-Society Task Force on Colorectal Cancer Screening , Am J Gastroenterology 2017; 112:1273-4270. TEST DESCRIPTION: Composite algorithmic analysis of stool [...] (Carter Burden al, N Engl J Med 2014;370(14):0753-1920.) Cologuard may produce a false negative or false positive result (no colorectal cancer or precancerous polyp present at colonoscopy follow up). A negative Cologuard test result does not guarantee the absence of CRC or advanced adenoma (pre-cancer). The current Cologuard screening interval is every 3 years. ([place] Cancer Society and U.S. Multi-Society Task Force). Cologuard performance data in a 10,000 patient pivotal study using colonoscopy as the reference method can be accessed at the following location: www.[employer].EcoIntense/results. Additional description of the Cologuard test process, warnings and precautions can be found at www.[employer].EcoIntense. Stool specimen (specimen) 11/21/2023 10:22 AM EST 11/22/2023 1:57 PM EST Vivek Falcon MD LAB MOLECULAR DIAG NOSTICS ORDERABLES Final Result [facility] (CLIA #:[id number]) [place] [address] [place] [address], * Hepatitis C Antibody with Reflex to HCV, RNA, Quantitative, Real-Time PCR (11/12/2022 11:40 AM EST) Hepatitis C Antibody NON-REACT IRA NON-REACT IRA [facility] Index 0.03 <1.00 [facility] Comment: HCV antibody was non-reactive. There is no laboratory evidence of HCV infection. In most cases, no further action is required. However, if recent HCV exposure is suspected, a test for HCV RNA (test code 86682) is suggested. For additional information please refer to http://[employer].SRE [place] - 2/faq/IWC80h2 (This link is being provided for informational/ educational purposes only.) Blood Venous blood specimen / Unknown 11/12/2022 11:40 AM EST 11/12/2022 11:41 AM EST Narrative [facility] - 11/17/2022 4:36 PM EST FASTING:YES FASTING: YES Vivek Falcon MD LAB BLOOD ORDERABL ES Final Result [facility] [address], [place] [address] [facility] [place] [facility] [address] [facility], (Nl2) [place] [address] from Last 3 Months or Most Recently Relevant to Health Maintenance Insurance [facility] CORRECTION OPTIONS (O D-SNP) [employer] [id number] Care Teams Packager Head Relationship Specialty Start Date End Date Vivek Garland MD [address] [place], [place] [address] [place] [address] PCP - General Internal Medicine 03/27/20
--- OUTSIDE RECORDS SUMMARY | 2025-05-28 10:14 | XMS_ITS | Encounter Summary ---
Author Organization [employer] Address [address] [facility] 7t [place] [address] Care Team Providers Care Electrical Drafter Name Role Phone Vivek Garland MD Primary Care Prov ider Encounter Details Date Type Department Care Team (Late st Contact Info) Description 11/15/2022 Orders Only [facility] [address] [place], [place] [phone] Vivek Garland MD [address] [place] [address] Social History Tobacco Use Types Packs/Day Years [...] on filedocumented in this encounter Care Teams Electrical Drafter Relationship Specialty Start Date End Date Vivek Garland MD [address] [place] [address] PCP - General Internal Medicine 03/27/20 documented as of this encounter
--- OUTSIDE RECORDS SUMMARY | 2025-05-28 10:14 | XMS_ITS | Encounter Summary ---
Author Organization [employer] Address [address] [facility] 7t [place] [address] Care Team Providers Care Senior Accountant Name Role Phone Vivek Garland MD Primary Care Prov ider Encounter Details Date Type Department Care Team ([facility] st Contact Info) Description 07/12/2024 Orders Only [facility] [address] [place], [place] [phone] Vivek Garland MD [address] [place] [address] Social History Tobacco Use Types Packs/Day Years [...] on file documented as of this encounter Goals Goal Patient Goal Type Associated Problems Recent Progress Patient-Stated? Author Blood Pressure < 140/90 Blood Pressure 130/79(2024 1:26 PM EDT) No Shruti Sorensen PharmD Hemoglobin A1c < 7 Result Component 9.8( 9:50 AM EDT) No Shruti Sorensen PharmD documented as of this encounter Visit Diagnoses Not on filedocumented in this encounter Additional Health Concerns Assessment Noted Time PHQ-9 Depression Total Score: 0 12/29/19 23 1:07 PM EDT documented as of this encounter Care Teams Senior Accountant Relationship Specialty Start Date End Date Vivek Garland MD [address] [place] [phone] PCP - General Internal Medicine 03/27/20 documented as of this encounter
--- OUTSIDE RECORDS SUMMARY | 2025-05-28 10:14 | XMS_ITS | Encounter Summary ---
Author Organization [facility] Address [address] [facility] 7t [place] [address] Care Team Providers Care Supervisor Advice Name Role Phone Vivek Garland MD Primary Care Prov ider Encounter Details Date Type Department Care Team (Late st Contact Info) Description 04/14/2023 Orders Only [facility] [address] [place] [phone] Sherin Garza LPN Social History Tobacco Use [...] documented as of this encounter Care Teams Supervisor Advice Relationship Specialty Start Date End Date Vivek Garland MD [address] [place] [address] PCP - General Internal Medicine 03/27/20 documented as of this encounter
--- OUTSIDE RECORDS SUMMARY | 2025-05-28 10:15 | XMS_ITS | Encounter Summary ---
Author Organization [employer] Address [address] [facility] 7t [place] [address] Care Team Providers Care Revenue Analyst Name Role Phone Vivek Garland MD Primary Care Prov ider Reason for Visit * Reason Onset Date Comments New Glucose Monitor 03/12/2025 Encounter Details Date Type Department Care Team (Late st Contact Info) Description 03/12/2025 Telephone [facility] [address] [place] [phone] Vivek Garland MD [address] [facility] [place] [address] New Glucose Monitor Social History Tobacco Use Types Packs/Day Years [...] your housing situation today? I have merry lui 01/01/[address] you li [...] encounter Miscellaneous Notes * Telephone Encounter - Magda Montemayor - 03/12/2025 9:56 AM EDT Tc from pt requesting a new glucose monitor (Freestyle). Pt stated that the one she has stop working Please contact pt when monitor is prescribed. [phone] documented in this encounter Plan of Treatment Not on file documented as of this encounter Goals Goal Patient Goal Type Associated Problems Recent Progress Patient-Stated? Author Blood Pressure < 140/90 Blood Pressure 130/79(2024 1:26 PM EDT) No Shruti Sorensen, PharmJodee Hemoglobin A1c < 7 Result Component 9.8( 9:50 AM EDT) No Shruti Sorensen PharmD documented as of this encounter Visit Diagnoses Not on filedocumented in this encounter Additional Health Concerns Assessment Noted Time PHQ-9 Depression Total Score: 0 01/02/20 25 1:05 PM EDT documented as of this encounter Care Teams Revenue Analyst Relationship Specialty Start Date End Date Vivek Garland MD [address] [place] [phone] PCP - General Internal Medicine 03/27/20 documented as of this encounter
--- OUTSIDE RECORDS SUMMARY | 2025-05-28 10:15 | XMS_ITS | Clinical Summary ---
Author Organization [facility] Address [address] [place] [address] Care Team Providers Care Telehealth Director Name Role Phone Unavailable Primary Care Provider [...]
--- OUTSIDE RECORDS SUMMARY | 2025-05-28 10:15 | XMS_ITS | Encounter Summary ---
Author Organization [employer] Address [address] [facility] 7t [place] [address] Care Team Providers Care Physical Director Name Role Phone Vivek Garland MD Primary Care Prov ider Reason for Visit * Reason Comments Med Refill Encounter Details Date Type Department Care Team ([facility] st Contact Info) Description 03/18/2025 Refill [facility]S [address] [place] [address] Vivek Garland MD [address] [place] [address] Social History Tobacco Use Types Packs/Day Years [...] documented as of this encounter Care Teams Physical Director Relationship Specialty Start Date End Date Vivek Garland MD [address] [place] [phone] PCP - General Internal Medicine 03/27/20 documented as of this encounter
--- OUTSIDE RECORDS SUMMARY | 2025-05-28 10:15 | XMS_ITS | Encounter Summary ---
Author Organization [employer] Address [address] [facility] 7t [place] [address] Care Team Providers Care Senior Environmental Technician Name Role Phone Vivek Garland MD Primary Care Prov ider Reason for Visit * Reason Onset Date Comments Appointment Request 08/18/2023 Encounter Details Date Type Department Care Team ([facility] st Contact Info) Description 08/18/2023 Telephone [facility] [address] [place] [address] Vivek Garland MD [address] [facility] [place] [address] Appointment Request Social History Tobacco Use Types [...] t he electric, gas, oil or water babbel threatened to shut off services in your [...] Miscellaneous Notes * Telephone Encounter - Kendal Bonilla - 08/18/2023 2:34 PM EST Tc from pt requesting f/u appt with PCP, ghost writer ask pt if any concerns with [...] as of this encounter Care Teams Senior Environmental Technician Relationship Specialty Start Date End Date Vivek Garland MD [address] [place] [phone] PCP - General Internal Medicine 03/27/20 documented as of this encounter
[2025-05-28 14:05] LABS: MANUAL DIFF FLAG NO
[2025-05-28 14:18] LABS: Hematocrit 40.8 % (37.0-47.0); Hemoglobin 13.1 g/dl (12.0-16.0); Imm Gran Abs Auto 0.06 X10*3/uL (0.00-0.03); Imm Gran Pct Auto 0.7 % (0.0-0.4); Lymphocytes Absolute Auto 2.6 X10*3/uL (1.2-4.9); Mean Corpuscular HGB Conc 32.1 g/dl (31.0-35.0); Mean Corpuscular Hemoglobin 30.2 pg (27.0-33.0); Mean Corpuscular Volume 94.0 fL (80.0-98.0); NRBC Abs Auto 0.000 X10*3/uL (0.0-0.012); NRBC Pct Auto 0.0 /100WBC (0.0-0.2); Platelet Count 288 X10*3/uL (160-400); Red Blood Count 4.34 X10*6/uL (4.20-5.50); White Blood Count 8.9 X10*3/uL (4.8-10.8)
[2025-05-28 14:51] LABS: Alanine Aminotransferase 34 U/L (0-31); Albumin Level 4.1 g/dL (3.5-5.0); Alkaline Phosphatase 106 U/L (39-117); Anion Gap 14 (12-20); Aspartate Amino Transferase 36 U/L (5-31); Blood Urea Nitrogen 15 mg/dL (9-16); Calcium 9.5 mg/dL (8.4-10.2); Carbon Dioxide 26 mmol/L (22-29); Chloride 107 mmol/L (96-108); Cholesterol 243 mg/dL (<200); Estimated Glomerular Filt Rate 55; HDL Cholesterol 41 mg/dL (>40); Potassium 3.5 mmol/L (3.3-5.1); Sodium 143 mmol/L (135-145); Total Protein 7.9 g/dL (6.5-8.0); Triglycerides 157 mg/dL (<150)
== END 2025-05-28 09:38 | disposition home or self-care (01) ==
LOC: HO.CHCLDS 09:37
PROVIDERS: Visit Provider Internal Medicine
DX: E11.51 Type 2 diabetes mellitus with diabetic peripheral angiopathy without gangrene (principal); Z79.4 Long term (current) use of insulin
CPT/HCPCS: 36415; 80053; 80061; 85025

== ENCOUNTER 2025-07-01 12:15 | Outpatient (AMB) | payer OTHER, SELFPAY ==
--- NOTE | 2025-07-01 12:43 | MHC.AMDMED ---
Intake Intake Visit Reasons: T2DM Service Promoter Salesperson Required: Yes Service Promoter Salesperson Language: Poultry Field Service Technician Name: Lasha Dugan Accompanied by: Self / Same As Patient Allergies No Known Allergies Allergy (Verified 05/01/25 11:33) HPI Comprehensive Diabetes Asmnt Most Recent Diabetes Results: Microalb/Creat Ratio, (<30) 38.0 ug/mg cr H 08/06/24 Cholesterol, (<200) 243 mg/dL H 05/28/25 HDL Cholesterol, (>40) 41 mg/dL 05/28/25 Triglycerides, (<150) 157 mg/dL H 05/28/25 Creatinine, (0.5-1.4) 0.99 mg/dL 05/28/25 BUN, (9-16) 15 mg/dL 05/28/25 Sodium, (135-145) 143 mmol/L 05/28/25 Potassium, (3.3-5.1) 3.5 mmol/L 05/28/25 Chloride, (96-108) 107 mmol/L 05/28/25 Carbon Dioxide, (22-29) 26 mmol/L 05/28/25 Calcium, (8.4-10.2) 9.5 mg/dL 05/28/25 AST, (5-31) 36 U/L H 05/28/25 ALT, (0-31) 34 U/L H 05/28/25 Total Protein, (6.5-8.0) 7.9 g/dL 05/28/25 Albumin, (3.5-5.0) 4.1 g/dL 05/28/25 [facility] Medical History CRISTINA (obstructive sleep apnea) Diabetes HTN (hypertension) CAD (coronary artery disease) Asthma Surgical History Hx of CABG Hx of heart surgery Hx of endoscopy History of colonoscopy Family History Father Hx of diabetes insipidus Mother No problems noted. 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.4 - ferry terminal agent (current) use of insulin Plan: Personal Continuous Glucose Monitor: Patient came to appointment with Sukhi 2 reader, in the past we had set up patient with Dexcom G7 reader and Dexcom G7 sensors which patient reports she does not remember Discussed with provider ordering Sukhi 3+ reader in 3+ sensors so patient can resume CGM No blood sugars to review at today's visit Patient reports taking Toujeo 60 units at bedtime She states that she has NovoLog sliding scale, given to her by provider at [facility] Patient did not have a copy of sliding scale with her and could not recall Target Goals: Blood glucose targets and how you feel when your blood glucose is in and out of your target ranges. Monitoring and knowing your A1C. What can make blood glucose go up and down and preventing high and low blood glucose. Review of blood sugar targets in expected goal range and outside of expected goal range. Problem solving and preventing hyper/hypoglycemia. Sick day management of diabetes. Using blood sugar results in decision making process in managing diabetes. ?Patient was receptive to information provided and participated in the discussion. Asked?appropriate questions and demonstrated good understanding of the topics discussed.? ? Educational Materials: The patient was provided with the following written educational materials: Target Goal handout Patient able to insert sensor independently at home without issue.? Portions of this note were created using voice recognition software, please excuse any words or phrases that may have been misinterpreted. Patient Instructions: Cuando reciba los suministros del sensor Sukhi 3, llame y programe ciarra misty con Educaci?n para la Diabetes. En alan pr?xima misty en el [facility], lleve ciarra copia de la escala m?tom de NovoLog. Coding Level of Care Code Est Pt Level 1 (41266) Diagnoses Uncontrolled type 2 diabetes mellitus with hyperglycemia, with long-term current use of insulin E11.65; Z79.4
== END 2025-07-01 13:13 | disposition home or self-care (01) ==
LOC: HO.ENCR 12:16
PROVIDERS: PCP Internal Medicine; Visit Provider Registered Nurse Diabetes Educator
DX: E11.65 Type 2 diabetes mellitus with hyperglycemia (principal); Z79.4 Long term (current) use of insulin

== ENCOUNTER 2025-07-01 12:15 | Outpatient (AMB) | payer OTHER, SELFPAY ==
--- NOTE | 2025-07-01 12:36 | A.OFFVIS_ITS ---
Vital Signs 07/01/25 12:55 Height 5 ft 2 in Weight 152 lb 1.903 oz BMI 27.8 BP 138/68 Blood Pressure Location Rt brachial Position Sitting Pulse 72 Pulse Source Pulse Oximeter Pulse Oximetry (%) 98 Oxygen Delivery Method Room Air Intake Visit Reasons: T2DM Intake Note: Patient presents today for a follow-up on Type 2 Diabetes Mellitus: Last Diabetic eye exam was on: DUE Last Podiatry exam was on: Patient does not see a Chainstitch Binder Most recent HbA1c: 8.7%, 07/01/2025 Random Glucose- 359 mg/dL, Today Carpenter Labor Supervisor Required: No Accompanied by: Self / Same As Patient Allergies No Known Allergies Allergy (Verified 05/01/25 11:33) Medication List - Last Reconciled 07/01/25 by Zita Barger PA-C alcohol swabs pad topical TID aspirin 81 mg PO DAILY atorvastatin 80 mg PO BEDTIME blood-glucose sensor (Dexcom G7 Sensor device) Use daily As directed to monitor glucose. change q 10 days evolocumab (Repatha SureClick) 140 mg subcut Q2W ferrous sulfate 325 mg PO DAILY fluticasone furoate-vilanterol 200-25 mcg/dose (Breo Ellipta) 1 inh inhalation DAILY 30 days glucose (Dex4 Glucose) 16 grams (4 x 4 gram) PO Q15M PRN insulin aspart U-100 (Novolog FlexPen U-100 Insulin aspart) 14 units (0.14 mL) subcut TID insulin glargine U-300 conc (Toujeo Max U-300 SoloStar) 60 units (0.2 mL) subcut DAILY lancets As directed levalbuterol tartrate 45 mcg/actuation 2 puffs inhalation Q6H PRN 30 days lisinopril 40 mg PO DAILY multivitamin 1 tab PO DAILY pen needle, diabetic Use QID As directed umeclidinium 62.5 mcg/actuation 1 inh PO DAILY 30 days HPI HPI T2DM: Details: Patient is a 69-year-old female with a significant past medical history of coronary artery disease, s/p CABG, CRISTINA, diabetes, hypertension, hyperlipidemia, anemia and asthma presenting today for a diabetic f/u. Endo: She was diagnosed with diabetes around the age 50. Her last A1c was 10.1 and today is 8.7. She is currently on novolog 14-24 units t.i.d., Toujeo 60 units at night. -she states that she has a sliding scale that she will bring in with her at our next appointment from her nurse at the [facility]. She states she inject somewhere between 14 and 24 units and usually it is around 20 units of the NovoLog. She reports compliance with insulin and no adverse effects. She does not have a sensor so she does not monitor his blood sugars as frequently as she should. -She stopped the ozempic due to nausea. States that she is not interested in Mounjaro or any other medications at this point and just wants to be treated with the insulin. She states her A1c increased because she had to travel to [place] for a in the family and did not take any of her medication with her. She states since being back her blood sugars have been better. -at times it was uncomfortable injecting 50 units of the Lantus, jardiance causes upset stomach, She tried metformin n/v/d. Trulicity causes n/v, stopped glipizide. CGM-lost the dexcom Checks her blood sugars 3x a day and states they are usually less than 200. Sometimes she gets blood sugars above 300. It is usually related to dietary indiscretions or forgetting to take medication. She does have microalbuminuria and known CAD following with nurse educator for Diabetic Education. She is cutting back on rice, bread and cereal. States she has a strong fam hx of t2dm and when she was diagnosed she was confirmed by pcp t2dm. CV: Blood pressure today in the office is 138/58. She is currently on lisinopril 40 mg. Her cholesterol is not at goal. Her LDL should be less than 70 in her last lipid panel did show an LDL of 167. She states she just started Repatha. [facility] Medical History CRISTINA (obstructive sleep apnea) Diabetes HTN (hypertension) CAD (coronary artery disease) Asthma Surgical History Hx of CABG Hx of heart surgery Hx of endoscopy History of colonoscopy Family History Father Hx of diabetes insipidus Mother No problems noted. Other Asthma Social History Household Members: None Household Members Other:: alone Alcohol intake: never Patient Tobacco Use Status: Never used Tobacco Physical Exam Vital Signs: Last Vital Signs Pulse 72 07/01/25 12:55 BP 138/68 07/01/25 12:55 Pulse Ox 98 07/01/25 12:55 Oxygen Delivery Method Room Air 07/01/25 12:55 BMI result Body Mass Index 27.8 Const Orientation/consciousness: patient oriented x3 HEENT Ears: hearing grossly normal bilaterally Neck Thyroid: Thyroid normal Lymphatic: no lymphadenopathy noted Resp Auscultation: clear to auscultation bilaterally Cardio Rate: regular rate Rhythm: regular rhythm Heart sounds: S1 normal heart sound present and S2 normal heart sound present Skin General skin exam: no rashes or lesions noted Neuro General: patient oriented x3, gait normal and no focal motor deficits Results AMB Hemoglobin A1c AMB Hemoglobin A1c 8.7 % Last Edit by NITA Crespo on 07/01/25 13:09 Assessment & Plan Assessment & Plan (1) Uncontrolled type 2 diabetes mellitus with hyperglycemia, with long-term current use of insulin: Code(s): E11.65 - Type 2 diabetes mellitus with hyperglycemia; Z79.4 - jail (current) use of insulin Category: Medical Plan: Will order sensor and reader for sukhi 3+ plus She declines making any medication adjustments and tells me that she will not do that. I have encouraged compliance with the NovoLog and Toujeo She does not require any back up testing supplies that she states she has freestyle Lite at home along with many lancets and test strips. She is not interested in trying any other medication. We reviewed signs and symptoms of hyper and hypoglycemia that would require emergent medical treatment. Three-month follow up. Sooner if needed. (2) HTN (hypertension): Code(s): I10 - Essential (primary) hypertension Category: Medical Qualifiers: Hypertension type: primary hypertension Qualified Code(s): I10 - Essential (primary) hypertension Plan: Continue current regimen Orders: Orders AMB Hemoglobin A1c Today E11.65 - Type 2 diabetes mellitus with hyperglycemia, Z79.4 - terminologist (current) use of insulin Medications: New blood-glucose sensor (FreeStyle Sukhi 3 Plus Sensor device) Use daily As directed to monitor glucose 2 ea 5RF E08.29 - Diabetes mellitus due to underlying condition with other diabetic kidney complication, R80.9 - Proteinuria, unspecified, Z79.4 - jail (current) use of insulin blood-glucose,it applications manager,cont (FreeStyle Sukhi 3 [place]) Use daily As directed to monitor blood glucose 1 ea 0RF E11.65 - Type 2 diabetes mellitus with hyperglycemia, Z79.4 - jail (current) use of insulin Changed From insulin glargine U-300 conc (Toujeo Max U-300 SoloStar) 70 units (0.2333 mL) subcut DAILY 6 mL 3RF To insulin glargine U-300 conc (Toujeo Max U-300 SoloStar) 60 units (0.2 mL) subcut DAILY 6 mL 3RF From insulin glargine U-300 conc (Toujeo Max U-300 SoloStar) 60 units (0.2 mL) subcut DAILY 6 mL 3RF To insulin glargine U-300 conc (Toujeo Max U-300 SoloStar) 70 units (0.2333 mL) subcut DAILY 6 mL 3RF Coding Level of Care Code Est Pt Level 4 (09246) Complex EM visit Add On G2211 Diagnoses Uncontrolled type 2 diabetes mellitus with hyperglycemia, with long-term current use of insulin E11.65; Z79.4 Primary hypertension I10 Hypertension type: primary hypertension
[2025-07-01 12:55] VITALS: BP 138/68; PULSE 72; O2SAT 98; BMI 27.8
[2025-07-01 13:03] LABS: Glucose, Whole Blood 359 mg/dL (60-115)
== END 2025-07-01 13:13 | disposition home or self-care (01) ==
LOC: HO.ENCR 12:16
PROVIDERS: PCP Internal Medicine; Visit Provider Physician Assistant
DX: E11.65 Type 2 diabetes mellitus with hyperglycemia (principal); Z79.4 Long term (current) use of insulin; I10 Essential (primary) hypertension

== ENCOUNTER → 2025-07-01 12:15 | Outpatient (BNVA) | payer OTHER, SELFPAY | PROVIDERS: PCP Internal Medicine; Visit Provider Physician Assistant | DX: E11.65 Type 2 diabetes mellitus with hyperglycemia (principal); E11.29 Type 2 diabetes mellitus with other diabetic kidney complication; E78.5 Hyperlipidemia, unspecified; R80.9 Proteinuria, unspecified; Z79.4 Long term (current) use of insulin | CPT/HCPCS: 82947; 83036; 99211; 99212 ==